=== PATIENT | male | born 1970 | race Two or more races ===

== ENCOUNTER 2016-05-23 09:57 | Emergency (ER) | payer MEDICAID ==
[~2016-05-23] VITALS: Ht 165.1 cm; Wt 65.0 kg
[2016-05-23 10:00] VITALS: Ht 165.1 cm; Wt 65.0 kg
[2016-05-23] MEDS ORDERED: OFLO5DRO46 BOTH EYES (10:27)
--- NOTE | 2016-05-23 10:43 | ERD ---
DATE OF SERVICE: 05/23/2016 HISTORY OF PRESENT ILLNESS: The patient is a 45-year-old male complaining of discharge from his eye s for 3 days. The patient states he has used Clear Eyes and allergic medications, but has not been helping his symptoms. He does not wear glasses or contacts. He does not feel that his vision is af fected. Does not have pain with eye movement. No headaches. No fevers. PAST MEDICAL HISTORY: Denies medical problems. ALLERGIES TO MEDICATIONS: DENIES. PAST SURGICAL HISTORY: Denies. SOCIAL HISTORY: Denies. REVIEW OF SYSTEMS: A 12-point review of systems was done. Refer to HPI for positives, all other sy stems negative. PHYSICAL EXAMINATION VITAL SIGNS: Temperature is 98.2, pulse 107, blood pressure is 148/90, respiratory rate 18, O2 satu ration 99% on room air. Pain intensity of 4/10. GENERAL: The patient is well-appearing, well-nourished, no acute distress. HEENT: The patient has copious amounts of discharge from the eyes with mild injection of the eyes. There is no surrounding erythema to the soft tissue. Pupils equal, round and reactive to light. E xtraocular movements intact. No pain with eye movements. NECK: C-spine is soft and supple. There is no meningismus. There is no cervical lymphadenopathy. No JVD. No bruits. No goiter. CHEST: Clear to auscultation bilaterally. There are no rales, wheezes or rhonchi. HEART: Regular rate and rhythm. No murmurs, clicks, rubs or gallops. No S3 or S4. SKIN: There is no apparent rash or petechia. The skin is warm and dry. DIAGNOSIS: Bacterial conjunctivitis. MEDICAL DECISION MAKING: I have low suspicion for intracranial hemorrhage or mass effect. Low susp icion for orbital or periorbital cellulitis. Low suspicion for meningitis or sepsis. DISCHARGE: The patient is discharged stable. The patient is given a prescription for Ocuflox and t old to follow up with primary care within 1 to 2 days for reevaluation. The patient was told if sym ptoms progress or worsen, to return to the ER. All other questions answered at time of discharge. Discharge summary given at the time of departure. The patient understood and complied with plan. Dictated By: JADA HUFF for NEO PILLAI/NTS Conf#: [id number] DID#: [id number]
== END 2016-05-23 10:50 | disposition home or self-care (01) ==
LOC: FTE 09:57
DX: H10.9 Unspecified conjunctivitis (principal)
CPT/HCPCS: 99283

== ENCOUNTER 2016-05-25 09:51 | Inpatient (IN) | payer MEDICAID ==
[~2016-05-25] VITALS: Ht 165.1 cm; Wt 70.0 kg
[~2016-05-25 09:51] MED LIST: OFLO5DRO46 BOTH EYES
[2016-05-25] MEDS ORDERED: SODIUM CHLORIDE 0.9% 1L BAG IV* STA (10:13)
[2016-05-25] MEDS ORDERED: IBUPROFEN 600 MG TAB PO ONE (10:30)
[2016-05-25] MEDS ORDERED: CEFTRIAXONE 1 GM/50 ML (PMX) 50 ML IVPB ONE (10:30)
--- NOTE | 2016-05-25 10:32 | RADRPT ---
PROCEDURE: Chest x-ray CLINICAL INDICATION: Sepsis TECHNIQUE: Chest single view COMPARISON: None FINDINGS: Heart is mildly enlarged in size. Pulmonary vessels normal in caliber. There is questionable retro cardiac infiltrate / pneumonia. Consider lateral view for further evaluation. Lung volumes are low with mild basilar atelectasis. Costophrenic angles are sharp. IMPRESSION: 1. Mild cardiomegaly. 2. Questionable retrocardiac infiltrate / pneumonia, recommend lateral view 3. Low lung volumes with basilar atelectasis RPTAT: HH .Sanjay Esquivel MD, MD Date Time Electronically viewed and signed by .Sanjay Esquivel MD, on 05/25/2016 10:32 .W/
[2016-05-25 10:33] LABS: ADD SCAN DIFF NO
[2016-05-25 10:45] LABS: ABNORMAL IP MESSAGE 1; BASOPHIL # 0.1 10^3/ul (0.0-0.1); BASOPHILS % 0.3 % (0.0-2.0); EOSINOPHILS % 0.1 % (0.0-7.0); HEMATOCRIT 46.9 % (42.0-52.0); LYMPHOCYTES # 1.7 10^3/ul (0.8-2.9); LYMPHOCYTES % 9.4 % (15.0-51.0); MEAN CORPUSCULAR HEMOGLOBIN 30.1 pg (29.0-33.0); MEAN CORPUSCULAR HGB CONC 34.1 g/dl (32.0-37.0); MEAN CORPUSCULAR VOLUME 88.2 fl (82.0-101.0); MEAN PLATELET VOLUME 9.1 fl (7.4-10.4); MONOCYTE # 2.4 10^3/ul (0.3-0.9); MONOCYTES % 12.9 % (0.0-11.0); NEUTROPHIL # 14.1 10^3/ul (1.6-7.5); NEUTROPHILS % 76.3 % (39.0-77.0); PLATELET COUNT 364 10^3/UL (140-415); RED BLOOD COUNT 5.32 10^6/ul (4.70-6.10); RED CELL DISTRIBUTION WIDTH 12.4 % (11.5-14.5); WHITE BLOOD COUNT 18.4 10^3/ul (4.8-10.8)
[2016-05-25 10:47] LABS: CHLORIDE 93 mmol/L (97-110)
[2016-05-25 10:48] LABS: ALBUMIN 3.9 g/dl (3.3-4.9); POTASSIUM 4.2 mmol/L (3.5-5.1); SODIUM 134 mmol/L (135-144)
[2016-05-25 10:49] LABS: INR 1.11; PARTIAL THROMBOPLASTIN TIME 30.3 Sec (25.0-35.0); PROTIME 14.3 Sec (12.2-14.2); PT RATIO 1.1
[2016-05-25 10:50] LABS: CREATININE 0.93 mg/dl (0.61-1.24)
[2016-05-25 10:51] LABS: ALANINE AMINOTRANSFERASE 26 IU/L (13-69); ALBUMIN/GLOBULIN RATIO 0.86; ALKALINE PHOSPHATASE 111 IU/L (42-121); ANION GAP 18 (8-16); ASPARTATE AMINO TRANSFERASE 27 IU/L (15-46); BILIRUBIN,INDIRECT 1.3 mg/dl (0-1.1); BILIRUBIN,TOTAL 1.3 mg/dl (0.2-1.3); BLOOD UREA NITROGEN 12 mg/dl (7-20); CALCIUM 10.7 mg/dl (8.4-10.2); CARBON DIOXIDE 27 mmol/L (21-31); GLUCOSE 190 mg/dl (70-220); TOTAL PROTEIN 8.4 g/dl (6.1-8.1)
[2016-05-25] MEDS ORDERED: VANCOMYCIN 1 GM (PMX) 250 ML IVPB SCH (11:00)
[2016-05-25 11:09] LABS: TROPONIN-I < 0.012 ng/ml (0.00-0.12)
--- NOTE | 2016-05-25 11:42 | ERA ---
ER Documentation Chief Complaint Date/Time DATE: 05/25/16 TIME: 11:25 Chief Complaint BIB BILAT EYE REDNESS, LEFT ANKLE PAIN, FEVER HPI 45-year-old man complains of increasing left ankle pain, redness, and swelling 4-5 days, beginning about 2 days after receiving a stone massage. He states the stone was rubbed against his feet and lower extremities bilaterally and symptoms began a few days after that. Patient was also seen and evaluated a few days ago and diagnosed with bilateral conjunctivitis, he has been using antibiotic drops as prescribed without relief. Patient denies headache, no neck pain or stiffness, no cough, no sore throat, no vomiting or diarrhea, no dysuria. Patient denies abdominal pain. Patient denies recent travel or sick contacts. ROS All systems reviewed and are negative except as per history of present illness. Medications Home Meds Active Scripts Ofloxacin* (Ocuflox*) 0.3%-5 Ml Ophth Drops, 1 DROP BOTH EYES QID, #1 BOTTLE Prov:DUNCAN GOMEZ PA-C 05/23/16 Allergies Allergies: Coded Allergies: No Known Allergy (Unverified , 05/25/16) PMhx/Soc Recent bilateral conjunctivitis Hx Miscellaneous Medical Probl: Yes (EYE INFECTION) Hx Alcohol Use: No Hx Substance Use: No Hx Tobacco Use: No Smoking Status: Never smoker FmHx Family History: No diabetes Physical Exam Vitals Vital Signs Date Time Temp Pulse Resp B/P Pulse Ox O2 Delivery O2 Flow Rate FiO2 05/25/16 10:01 101.1 124 20 138/94 99 Physical Exam GENERAL: Well-developed, febrile HEENT: Bilateral conjunctival injection with mild discharge, no cervical spine tenderness or step-off deformities, no goiter, no jaundice or icterus, extraocular movements intact without pain. No submandibular induration, and no pharyngeal erythema NEURO: Alert and oriented 3, cranial nerves II through XII intact bilaterally, pupils equal round reactive to light, no focal deficits or facial asymmetry, sensation intact distally Strength 5/5 in upper and lower extremities bilaterally CARDIAC: Tachycardic and regular, no murmurs rubs or gallops LUNGS: Clear bilaterally no wheezing crackles or stridor ABDOMEN: Soft nontender, no guarding, no rigidity, no rebound, no psoas sign no obturator sign. Normoactive bowel sounds SKIN: Warm and dry to touch, positive skin induration and erythema to the medial aspect of the left ankle with superficial abrasion noted over the cellulitis, calves are bilaterally symmetrical. EXTREMITIES: No clubbing cyanosis or edema, calves are bilaterally symmetrical, no Homans sign, no popliteal cord sign. Distal pulses equal and bilateral PSYCH: Normal affect without agitation or irritability Result Diagram: 05/25/16 1025 05/25/16 1025 Results 24 hrs Laboratory Tests Test 05/25/16 10:25 Activated Partial Thromboplast Time 30.3Sec Alanine Aminotransferase (ALT/SGPT) 26IU/L Albumin 3.9g/dl Albumin/Globulin Ratio 0.86 Alkaline Phosphatase 111IU/L Anion Gap 18 Aspartate Amino Transf (AST/SGOT) 27IU/L Basophils # 0.110^3/ul Basophils % 0.3% Blood Urea Nitrogen 12mg/dl Calcium Level 10.7mg/dl Carbon Dioxide Level 27mmol/L Chloride Level 93mmol/L Creatinine 0.93mg/dl Direct Bilirubin 0.00mg/dl Eosinophils # 0.010^3/ul Eosinophils % 0.1% Globulin 4.50g/dl Glucose Level 190mg/dl Hematocrit 46.9% Hemoglobin 16.0g/dl INR International Normalized Ratio 1.11 Indirect Bilirubin 1.3mg/dl Lactic Acid Level 1.6mmol/L Lipase 47U/L Lymphocytes # 1.710^3/ul Lymphocytes % 9.4% Mean Corpuscular Hemoglobin 30.1pg Mean Corpuscular Hemoglobin Concent 34.1g/dl Mean Corpuscular Volume 88.2fl Mean Platelet Volume 9.1fl Monocytes # 2.410^3/ul Monocytes % 12.9% Neutrophils # 14.110^3/ul Neutrophils % 76.3% Nucleated Red Blood Cells # 0.010^3/ul Nucleated Red Blood Cells % 0.0/100WBC Platelet Count 92420^3/UL Potassium Level 4.2mmol/L Prothrombin Time 14.3Sec Prothrombin Time Ratio 1.1 Red Blood Count 5.3210^6/ul Red Cell Distribution Width 12.4% Sodium Level 134mmol/L Total Bilirubin 1.3mg/dl Total Protein 8.4g/dl Troponin I < 0.012ng/ml White Blood Count 18.410^3/ul Current Medications Medications (Trade) Dose Ordered Sig/Boaz Route PRN Reason Start Time Stop Time Status Last Admin Dose Admin Sodium Chloride 3000 ml 3,000 ml BOLUS OVER 2 HOURS STAT IV* 05/25/16 10:13 05/25/16 10:40 DC 05/25/16 11:06 Ceftriaxone Sodium (Rocephin) 50 ml @ 100 mls/hr ONCE ONCE IVPB 05/25/16 10:30 05/25/16 10:59 DC 05/25/16 11:06 Ibuprofen 600 mg 600 mg ONCE ONCE PO 05/25/16 10:30 05/25/16 10:40 DC 05/25/16 11:06 Vancomycin HCl (Vancocin) 250 ml @ 125 mls/hr ONCE IVPB 05/25/16 11:00 05/25/16 12:59 05/25/16 11:07 Procedures/MDM IV line was established patient was placed on monitoring specialist rhythm strip revealed a sinus tachycardia at 110 bpm with upright P and T waves. Patient was febrile. Blood and urine cultures have been ordered results are pending I will follow-up. EKG performed, read by me revealed a sinus tachycardia at 108 bpm, normal axis, narrow QRS complex, no concerning ST elevations or depressions noted. I treated the patient here with ceftriaxone 1 g IV and vancomycin 1 g IV, patient also received ibuprofen 600 mg p.o. and about 3 L normal saline intravenously. CBC and electrolytes were normal, liver function tests were normal, troponin was negative, coagulation profile was normal. Lactic acid level was low at 1.6. Urine analysis is pending I will follow-up. Chest X-ray 1V Interpreted by me: Soft Tissue: No acute abnormalities Bones: No acute abnormalities Mediastinum/Cardiac Silhouette/Lungs: No acute abnormalities Patient's infectious symptoms have not stabilized and the patient is at risk of rapid decompensation. The patient will be admitted for careful hydration, antibiotic therapy, and infectious source control. Severe Sepsis Assessment: Infectious Source: Left lower extremity cellulitis Severe Sepsis Managment: Blood Cultures X 2 before broad spectrum antibiotics initiated within 3 hours of recognition. 30 ml/kg NS bolus Completed Initial Lactate: 1.6 Repeat Lactate not indicated as initial < 2.0 Critical Care: Time: 37 minutes Treatments/Evaluations: Emergent fluid management, while maintaining close respiratory support. Immediate broad spectrum antibiotic therapy. Simultaneous assessment for possible sources in order to direct therapy. Consideration for invasive and chemical support to prevent respiratory or cardiac collapse. Septic Shock Assessment (1 hour post 30 ml/kg fluid bolus): Hypotension (SBP < 90 or 40 mmHg drop, MAP < 65): No Lactic acid > 4.0 No Perfusion Reassessment for Septic Shock: Temp afebrile, Pulse 90, RR 16, BP 120/80 Heart Exam: Regular rate and rhythm Lung Exam: No Crackles Capillary Refill: Less than 2 seconds Peripheral Pulses: Radially present Skin: [place], warm, and dry I considered further perfusion assessment with CVP measurement, SCVO2, bedside ultrasound volume assessment, passive leg raise, trial of further fluid bolus. And preceded with hydration and IV antibiotics Accepting Care Team: Current data and ongoing care discussed. Time: Time of admission Primary Provider: Hospital Consulting: Infectious disease Outstanding Data: none Departure Diagnosis: Primary Impression: Sepsis Qualified Code: A41.9 - Sepsis, due to unspecified organism Additional Impressions: Cellulitis Qualified Code: L03.116 - Cellulitis of left lower extremity Conjunctivitis Qualified Code: H10.33 - Acute bacterial conjunctivitis of both eyes Condition: MAURY Welch MD May 25, 2016 11:36
[2016-05-25 12:17] LABS: ADD UMIC YES; URINE BILIRUBIN (Dip) NEGATIVE (NEGATIVE); URINE BLOOD (Dip) 3+ (NEGATIVE); URINE COLOR LT. YELLOW (YELLOW); URINE KETONES (Dip) 15 (NEGATIVE); URINE LEUKOCYTE ESTERASE (Dip) NEGATIVE (NEGATIVE); URINE NITRITE (Dip) NEGATIVE (NEGATIVE); URINE TOTAL PROTEIN (Dip) 1+ (NEGATIVE); URINE UROBILINOGEN (Dip) 2.0 E.U./dL (0.1-1.0)
[2016-05-25 12:40] LABS: URINE RBCS 0-2 /HPF (0)
[2016-05-25 16:05] VITALS: TEMP 101.1
[2016-05-25 16:15] VITALS: BP 130/70; PULSE 85; RESP 18
[2016-05-25 16:45] VITALS: Ht 165.1 cm; Wt 70.0 kg
[2016-05-25] MEDS ORDERED: CEFTRIAXONE 2 GM/50 ML (PMX) 50 ML IVPB ONE (17:30)
[2016-05-25] MEDS ORDERED: ACETAMINOPHEN 325 MG TAB PO PRN (17:30)
[2016-05-25] MEDS ORDERED: NACL 0.9% 3 ML SYG IV SCH (17:30)
[2016-05-25] MEDS ORDERED: ONDANSETRON 4 MG TAB PO PRN (17:30)
[2016-05-25] MEDS ORDERED: ACETAMINOPHEN 650 MG SUPP PR PRN (17:30)
[2016-05-25 18:44] LABS: CREATINE KINASE 54 IU/L (23-200)
[2016-05-25 18:54] LABS: CK-MB 0.25 ng/ml (0.0-2.4)
[2016-05-25 18:58] LABS: TROPONIN-I < 0.012 ng/ml (0.00-0.12)
[2016-05-25 20:01] VITALS: BP 139/86; RESP 18
[2016-05-25] MEDS: CLINDAMYCIN 600 MG/D5W (PMX) 50 ML IVPB SCH (21:18)
[2016-05-25] MEDS: GENTAMICIN 0.3% 5 ML OPH BOTH EYES SCH (21:18)
[2016-05-25] MEDS: FAMOTIDINE 20 MG INJ IV SCH (21:18)
[2016-05-25 23:18] LABS: CREATINE KINASE 41 IU/L (23-200)
--- NOTE | 2016-05-25 23:22 | CONS ---
Date/Time of Note Date/Time of Note DATE: 05/25/16 TIME: 23:19 Assessment/Plan Assessment/Plan Problems: (1) Left ankle pain Status: Acute Comment: r/o seronegative arthritis vs. lupus vs. RA vs. Justen's disease --> discussed case with Dr. ANGELES. 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 My recommendation is full blood work for rheumatoid arthritis, seronegative arthritis, lupus etc. I discussed my findings and my recommendations with the admitting physician. Thank you again for involving me in the care of this patient. If you have any questions regarding this case, please feel free to contact me at pager: or reach me at mobile: [phone]. Consultation Date/Type/Reason Admit Date/Time May 25, 2016 at 11:13 Date of Consultation: May 25, 2016 Type of Consultation: Foot and ankle surgery Reason for Consultation left ankle pain and swelling Hx of Present Illness Thank you very much for involving me in the care of this patient. As you very well know this is a 45-year-old with no significant past medical history who presents to [facility] emergency department with a chief complaint of 1 week of pain in the left ankle with swelling and bruising. He says that he was receiving a massage after which he started to feel pain in his ankle as the masseuse was using warm rock with some oil. Patient reports that he started having pain in other joints including his knees a few days later and started to have difficulty with walking and standing. Patient also has been having bilateral conjunctivitis which has been going on for about 4 days. Patient denies fever, chills, nausea or vomiting. Denies travel to other countries recently. I was consulted for evaluation and treatment. As per history of present illness. Past Medical History As per history of present illness. Past Surgical History As per history of present illness. Social History Smoking Status: Never smoker Exam/Review of Systems Vital Signs Vitals Vital Signs Date Time Temp Pulse Resp B/P Pulse Ox O2 Delivery O2 Flow Rate FiO2 05/25/16 20:01 99.4 98 18 139/86 98 05/25/16 16:15 Room Air Exam Patient is laying supine in bed. Patient has conjunctivitis on both eyes. Patient has edema of right ankle with tenderness to palpation of both ankles and heels. Patient has tenderness on range of motion of both ankle joints. There is mild erythema noted. There is no active open wound. Dorsalis pedis and posterior tibial pulses are palpable. Labs and imaging reviewed. Results Result Diagram: 05/25/16 1025 05/25/16 1025 Results 24 hrs Laboratory Tests Test 05/25/16 10:25 05/25/16 11:10 05/25/16 14:35 05/25/16 18:09 Activated Partial Thromboplast Time 30.3 Alanine Aminotransferase (ALT/SGPT) 26 Albumin 3.9 Albumin/Globulin Ratio 0.86 Alkaline Phosphatase 111 Anion Gap 18 H Aspartate Amino Transf (AST/SGOT) 27 Basophils # 0.1 Basophils % 0.3 Blood Urea Nitrogen 12 Calcium Level 10.7 H Carbon Dioxide Level 27 Chloride Level 93 L Creatinine 0.93 Direct Bilirubin 0.00 Eosinophils # 0.0 Eosinophils % 0.1 Globulin 4.50 H Glucose Level 190 Hematocrit 46.9 Hemoglobin 16.0 INR International Normalized Ratio 1.11 Indirect Bilirubin 1.3 H Lactic Acid Level 1.6 1.7 1.0 Lipase 47 Lymphocytes # 1.7 Lymphocytes % 9.4 L Mean Corpuscular Hemoglobin 30.1 Mean Corpuscular Hemoglobin Concent 34.1 Mean Corpuscular Volume 88.2 Mean Platelet Volume 9.1 Monocytes # 2.4 H Monocytes % 12.9 H Neutrophils # 14.1 H Neutrophils % 76.3 Nucleated Red Blood Cells # 0.0 Nucleated Red Blood Cells % 0.0 Platelet Count 364 Potassium Level 4.2 Prothrombin Time 14.3 H Prothrombin Time Ratio 1.1 Red Blood Count 5.32 Red Cell Distribution Width 12.4 Sodium Level 134 L Total Bilirubin 1.3 Total Protein 8.4 H Troponin I < 0.012 < 0.012 White Blood Count 18.4 H Urine Bilirubin NEGATIVE Urine Clarity CLEAR Urine Color LT. YELLOW Urine Glucose 0.1% H Urine Hemoglobin 3+ H Urine Ketones 15 Urine Leukocyte Esterase NEGATIVE Urine Microscopic RBC 0-2 Urine Microscopic WBC 2-5 Urine Nitrite NEGATIVE Urine Specific [place] 1.015 Urine Total Protein 1+ H Urine Urobilinogen 2.0 E.U./dL H Urine pH 5.5 Creatine Kinase 54 Creatine Kinase Index 0.5 Creatinine Kinase MB (Mass) 0.25 Erythrocyte Sedimentation Rate 95 H Medications Medications Current Medications Ceftriaxone Sodium 50 ml @ 100 mls/hr Q24H IVPB ; Start 05/26/16 at 18:00 Clindamycin HCl/ Dextrose (Cleocin 600 Mg/ D5W (Pmx)) 50 ml @ 50 mls/hr Q8 IVPB Last administered on 05/25/16 21:18; Admin Dose 50 MLS/HR; Start 05/25/16 at 22:00 Ondansetron HCl (Zofran Tab) 4 mg Q6H PRN PO NAUSEA AND/OR VOMITING; Start at 17:30 Acetaminophen (Tylenol Tab) 650 mg Q6H PRN PO PAIN LEVEL 1-3 OR FEVER; Start at 17:30 Acetaminophen (Tylenol Supp) 650 mg Q6H PRN ID PAIN LEVEL 1-3 OR FEVER; Start 05/25/16 at 17:30 Acetaminophen/ Hydrocodone Bitart ([place] (5/325)) 1 tab Q6H PRN PO MODERATE PAIN LEVEL 4-6; Start 05/25/16 at 17:30 Morphine Sulfate (morphine) 1 mg Q4H PRN IV SEVERE PAIN LEVEL 7-10; Start 05/25 at 17:30 Docusate Sodium (Colace) 100 mg Q12H PRN PO CONSTIPATION; Start 05/25/16 at 17: 30 Famotidine (Pepcid Iv) 20 mg Q12 IV Last administered on 05/25/16 21:18; Admin Dose 20 MG; Start 05/25/16 at 21:00 Gentamicin Sulfate (Gentamicin 0.3% Oph Drop) 1 drop Q12 BOTH EYES Last administered on 05/25/16 21:18; Admin Dose 1 DROP; Start 05/25/16 at 21:00; Stop 05/28/16 at 12:00 MARYSE SHIRLEY DPM May 25, 2016 23:21
[2016-05-25 23:29] LABS: CK-MB < 0.22 ng/ml (0.0-2.4)
[2016-05-25 23:54] LABS: TROPONIN-I < 0.012 ng/ml (0.00-0.12)
--- NOTE | 2016-05-26 02:54 | HP ---
DATE OF ADMISSION: 05/25/2016 CONSULTANTS: 1. Infectious disease. 2. Podiatry. CHIEF COMPLAINT: Left ankle pain and cellulitis with bilateral knee pain. HISTORY OF PRESENT ILLNESS: This is a 45-year-old gentleman with no significant past medical histor y who presents to [facility] Emergency Room secondary to having 1 week of left ank le pain and bruising, which he states happened after he obtained a massage which the masseuse used w arm rock which was accompanied with some oil. Several days later, the patient started having bilate ral knee pain and difficulty with ambulation secondary to the left lower extremity pain. The patien t also has been having bilateral conjunctivitis which started 3 to 4 days ago. He denies any recent travel history. No sick contact and no other family member has been having these signs and symptom s. He has not sought any medical attention until today when he presented to [facility], which his sodium was 134, calcium 10.7, total bilirubin 1.3, total protein 8.4. WBC 18.4. U rinalysis positive 3 hemoglobin; urobilinogen 2.0, leukocyte esterase negative. INR 1.01. The michelle ent denies any fever, chills, weight gain, weight loss, anorexia. No chest pain, no change in visua l acuity, diplopia, photophobia. No abdominal pain, no recent travel history. No sick contact or a ny other discomfort except what was stated above. PAST MEDICAL AND SURGICAL HISTORY: None. MEDICATIONS: None. SOCIAL HISTORY: Positive for drinking alcohol once or twice a week. No smoking, no illicit drugs. FAMILY HISTORY: No family history of rheumatoid arthritis, lupus or any immunocompromise disease. REVIEW OF SYSTEMS: As above per HPI, otherwise 12-point review of systems found to be negative. PHYSICAL EXAMINATION: VITAL SIGNS: Temperature 101.1, pulse 98, respiration 20, blood pressure 134/90, oxygen 99% in room air. GENERAL APPEARANCE: The patient is lying in bed comfortably without any distress. He is awake, jacey rt, oriented, is able to answer my questions properly. EYES AND ENT: Conjunctivae and is erythematous and red. Pupils are normal. Extraocular normal. H earing grossly normal. Lips, teeth and gums are normal. Oral mucosa mildly dry. NECK: Supple. Trachea is midline. No lymphadenopathy. RESPIRATORY: Effort is normal. Clear to auscultation bilaterally. CARDIOVASCULAR: Normal S1, S2. Regular rhythm and rate. No murmur, no bruits, no edema. Peripher al pulses, radial pulses palpable. Cap refill is normal. CHEST: Normal expansion of thorax during inspiration. GASTROINTESTINAL: Abdomen is soft, nontender, not distended. Bowel sounds present. No guarding, n o rebound. GENITOURINARY: Deferred. MUSCULOSKELETAL: Upper and lower extremities within normal limits. Full range of motion. There is tenderness in bilateral knee and left ankle. There is some bruising in the medial aspect of the le ft ankle. NEUROLOGIC: Cranial nerves II through XII grossly intact. PSYCHIATRIC: Normal judgment and insight. Alert and oriented x3. Mood and affect is normal. LABORATORY WORK AND IMAGING: PT 14.3, INR 1.1. Sodium 134, potassium 4.2, chloride 93, bicarbonate 27, BUN 18, creatinine 0.93, glucose 190, lactic acid 1.6, calcium 10.7, total bilirubin 1.3, direc t bilirubin 0, indirect bilirubin 1.3, AST 27, ALT 26, alkaline phosphatase 111. Troponin negative. Total protein 8.4. Lipase 47. WBC 18.4, hemoglobin 16, hematocrit 46.9, platelets 364. ASSESSMENT AND PLAN: Left lower extremity/ankle cellulitis with elevated white count and fever. Po diatry has been consulted. Infectious disease doctor has been consulted. At this time, patient has been placed on Rocephin and clindamycin, although the patient states that he has had this in the [facility] about 20 years ago. This also may be some inflammatory disease which is secondary to patient's b ilateral conjunctivitis. We will follow up rheumatology factors such as rheumatoid factor, uric aci d, ESR, JOSEFINA, anti-SSA and SSB and CRP. At this time will continue antibiotics. We will continue to monitor patient closely. Further recommendations, management and treatment as per clinical course. Dictated By: JONI DE ANDA/RUY Conf#: [id number] DID#: [id number]
--- NOTE | 2016-05-26 03:04 | RADRPT ---
PROCEDURE: MR Ankle. CLINICAL INDICATION: Pain in the left ankle. TECHNIQUE: Noncontrast MRI of the left ankle, with axial, sagittal and coronal images. T1-weighte d, T2-weighted, proton density and fat saturation techniques employed. COMPARISON: No prior studies are available for comparison. FINDINGS: No acute fracture or dislocation. No evident marrow replacement process. The talar dome is intact. Likely partial tear of the inferior margin of the anterior tibiofibular ligament or superior margin of the anterior talofibular ligament. There is a large tibiotalar joint effusion, and fluid migrate s anterior to the talus, compatible with ligamentous disruption at the anterior lateral ankle. There is no evident retraction to suggest full-thickness tear of either the tibiofibular or tibiotal ar ligaments. Joint fluid decompresses over of the posterior tibialis, flexor hallucis longus and flexor digitorum longus and flexor pollicis longus tendons at the posterior and medial aspects of the ankle and hind foot, with fluid extending over the tendons into the region of the plantar aspect of the midfoot. Mild tenosynovitis is seen associated the peroneus longus and brevis distal to the tip of the fibula . There may be a very small longitudinal tear involving the peroneus longus. Otherwise, there is n o evident retraction to suggest a full-thickness tear of the peroneus longus or peroneus brevis. A reference marker is seen over the medial aspect of the ankle, just posterior to the medial malleol us. Deep to the reference marker and there is extensive subcutaneous edema, otherwise nonspecific. Deep to the region of the extensive subcutaneous edema is the fluid surrounding the 3 principal ten dons of the medial ankle, described above. Mild subcutaneous edema is seen over the and for all lateral aspect of the ankle and proximal foot. Remaining soft tissues are substantially unremarkable. IMPRESSION: 1. There is a large tibiotalar joint effusion, with migration of fluid anterior to the talus. 2. This indicates at least a partial disruption of the anterior tibiofibular and/or anterior tibiot alar ligaments. 3. Otherwise, these ligaments appear intact without evident full-thickness tear or retraction. 4. Tibiotalar joint fluid decompresses around the posterior tibialis, flexor digitorum longus and f lexor hallucis longus tendons, and the fluid surrounding the tendons extends from the hind foot to t he plantar aspect of the midfoot. 5. Deep to reference marker there is subcutaneous edema at the ankle just posterior to the medial m alleolus, and deep to the subcutaneous edema the fluid surrounding the 3 principal tendons is identi fied. 6. Mild tenosynovitis involve the peroneus longus and brevis. 7. No acute fracture, dislocation, marrow replacement process or evident injury to the talar dome. RPTAT: [facility] Physician Nelly Date Time Electronically viewed and signed by Physician Nelly on 05/26/2016 03:04 RS/
[2016-05-26] MEDS: CLINDAMYCIN 600 MG/D5W (PMX) 50 ML IVPB SCH (05:33)
[2016-05-26 05:39] LABS: ADD SCAN DIFF NO; HAAIG REFLEX REFLEX FILED
[2016-05-26 06:08] LABS: ABNORMAL IP MESSAGE 1; BASOPHIL # 0.1 10^3/ul (0.0-0.1); BASOPHILS % 0.3 % (0.0-2.0); EOSINOPHILS % 0.2 % (0.0-7.0); HEMOGLOBIN 12.4 g/dl (14.0-18.0); LYMPHOCYTES # 2.1 10^3/ul (0.8-2.9); LYMPHOCYTES % 14.5 % (15.0-51.0); MEAN CORPUSCULAR HEMOGLOBIN 29.6 pg (29.0-33.0); MEAN CORPUSCULAR HGB CONC 33.5 g/dl (32.0-37.0); MEAN CORPUSCULAR VOLUME 88.3 fl (82.0-101.0); MEAN PLATELET VOLUME 9.5 fl (7.4-10.4); MONOCYTE # 1.9 10^3/ul (0.3-0.9); MONOCYTES % 13.4 % (0.0-11.0); NEUTROPHIL # 10.2 10^3/ul (1.6-7.5); NEUTROPHILS % 70.9 % (39.0-77.0); PLATELET COUNT 319 10^3/UL (140-415); RED BLOOD COUNT 4.19 10^6/ul (4.70-6.10); RED CELL DISTRIBUTION WIDTH 12.7 % (11.5-14.5); WHITE BLOOD COUNT 14.4 10^3/ul (4.8-10.8)
[2016-05-26 06:09] LABS: CHLORIDE 99 mmol/L (97-110); POTASSIUM 3.1 mmol/L (3.5-5.1); SODIUM 136 mmol/L (135-144)
[2016-05-26 06:12] LABS: ANION GAP 16 (8-16); BLOOD UREA NITROGEN 9 mg/dl (7-20); CARBON DIOXIDE 24 mmol/L (21-31); CREATININE 0.74 mg/dl (0.61-1.24)
[2016-05-26 06:13] LABS: GLUCOSE 110 mg/dl (70-220)
[2016-05-26 07:00] LABS: HEPATITIS B CORE ANTIBODY NEGATIVE (NEGATIVE)
[2016-05-26 07:36] LABS: ALBUMIN 3.1 g/dl (3.3-4.9)
[2016-05-26 07:39] LABS: BILIRUBIN,INDIRECT 0.6 mg/dl (0-1.1); BILIRUBIN,TOTAL 0.6 mg/dl (0.2-1.3)
--- NOTE | 2016-05-26 07:57 | CONS ---
DATE OF ADMISSION: 05/25/2016 DATE OF CONSULTATION: 05/25/2016 TYPE OF CONSULTATION: Infectious Disease. REASON FOR CONSULTATION: Antibiotic management. HISTORY OF PRESENT ILLNESS: Dean Yancey is a 45-year-old male who comes in with bilateral eye r edness and left ankle pain as well as fever. He notes that he has had left ankle pain, redness and swelling for 4 or 5 days, beginning about 2 days after receiving a stone massage. The stones were r ubbed against his feet and his lower extremities bilaterally and symptoms began a few days after chang t. He was seen and evaluated and diagnosed with bilateral conjunctivitis. He has been using antibio tic drops as prescribed without relief. He has no dysuria. He has no recent travel. He was starte d on ofloxacin eyedrops. PAST MEDICAL HISTORY: Unremarkable. FAMILY HISTORY: Noncontributory. SOCIAL HISTORY: He does not smoke, drink or abuse drugs. ALLERGIES: NONE TO PENICILLIN, SULFA OR FOODS. MEDICATIONS: Per chart. REVIEW OF SYSTEMS: As per HPI. PHYSICAL EXAMINATION: GENERAL: The patient is a well-developed, well-nourished male who is alert and responsive, in no ac [place] distress. VITAL SIGNS: He has a temperature of 101.1. Vital signs otherwise are normal. SKIN: Without generalized rash. Skin is warm and dry to touch. He has some induration and erythem a of medial aspect of the left ankle with superficial abrasion noted there. HEENT: Bilateral conjunctival injection with mild discharge. NECK: Supple. LYMPH NODES: None palpable. LUNGS: Clear to P and A. HEART: He is tachycardic. ABDOMEN: Soft, nontender, without organosplenomegaly or masses. EXTREMITIES: Without cyanosis, clubbing, or edema. As noted his left ankle has a superficial abras ion and probable cellulitis. Calves are symmetrical. RECTAL AND GENITAL: Deferred. NEUROLOGIC: Without any focal neurological abnormalities. ANCILLARY LABORATORY DATA: White count is 18.4, H and H of 16 and 46.9, platelet count 364,000. BU N and creatinine 12/0.93 and glucose of 190. PLAN: The patient was started on vancomycin and ceftriaxone for cellulitis. I think that possibilit y of Justen's syndrome has to be considered as well. He also was started on clindamycin, I guess fo r the possibility of group A strep. His chest x-ray shows questionable retrocardiac infiltrate or pn eumonia. Recommend lateral view. He had an ultrasound of the abdomen which is pending. He also patel d a sedimentation rate, rheumatoid factor, JOSEFINA, blood cultures, although I do not see an HLA-B27. I will dictate my findings to the hospitalist. A crown attacher should see the patient. Dictated By: TA MITCHELL MD, JD/RUY Conf#: [id number] DID#: [id number]
[2016-05-26] MEDS: FAMOTIDINE 20 MG INJ IV SCH ×2 (08:21→20:21)
[2016-05-26 08:24] VITALS: BP 130/68; RESP 18
[2016-05-26] MEDS: GENTAMICIN 0.3% 5 ML OPH BOTH EYES SCH ×2 (08:25→20:20)
[2016-05-26] MEDS ORDERED: POTASSIUM CHLORIDE (SR) 20 MEQ TAB PO STA (09:32)
--- NOTE | 2016-05-26 09:32 | PN ---
Date/Time of Note Date/Time of Note DATE: 05/26/16 TIME: 09:30 Assessment/Plan VTE Prophylaxis VTE Prophylaxis Intervention: SCD's Assessment/Plan Assessment/Plan Left lower extremity/ankle cellulitis with elevated white count and fever. acute transaminitis with elevated total bilirubin Blood culture positive with Gram positive cocci in clusters Conjunctivitis plan: continue current care Bp stable US abdomen IV abx as per ID, Blood cx grew Gram positive cocci in clusters resume diet after US abdomen will follow up Subjective 24 Hr Interval Summary Free Text/Dictation c/o abdominal pain , US abdomen ordered for today, ID following Exam/Review of Systems Vital Signs Vitals Vital Signs Date Time Temp Pulse Resp B/P Pulse Ox O2 Delivery O2 Flow Rate FiO2 05/26/16 08:24 99.5 101 18 130/68 97 05/25/16 16:15 Room Air Intake and Output 05/25/16 05/25/16 05/26/16 15:00 23:00 07:00 Intake Total 290 ml 1550 ml Output Total 1600 ml Balance 290 ml -50 ml Exam GENERAL APPEARANCE: The patient is lying in bed comfortably without any distress. He is awake, alert, oriented, is able to answer my questions properly. RESPIRATORY: Effort is normal. Clear to auscultation bilaterally. CARDIOVASCULAR: Normal S1, S2. Regular rhythm and rate. No murmur, no bruits , no edema. Peripheral pulses, radial pulses palpable. Cap refill is normal. CHEST: Normal expansion of thorax during inspiration. GASTROINTESTINAL: Abdomen is soft, nontender, not distended. Bowel sounds present. No guarding, no rebound. GENITOURINARY: Deferred. MUSCULOSKELETAL: Upper and lower extremities within normal limits. Full range of motion. There is tenderness in bilateral knee and left ankle. There is some bruising in the medial aspect of the left ankle. NEUROLOGIC: Cranial nerves II through XII grossly intact. PSYCHIATRIC: Normal judgment and insight. Alert and oriented x3. Mood and affect is normal. Results Result Diagram: 05/26/16 0508 05/26/16 0508 Results 24 hrs Laboratory Tests Test 05/25/16 10:25 05/25/16 11:10 05/25/16 14:35 05/25/16 18:09 Activated Partial Thromboplast Time 30.3 Alanine Aminotransferase (ALT/SGPT) 26 Albumin 3.9 Albumin/Globulin Ratio 0.86 Alkaline Phosphatase 111 Anion Gap 18 H Aspartate Amino Transf (AST/SGOT) 27 Basophils # 0.1 Basophils % 0.3 Blood Urea Nitrogen 12 Calcium Level 10.7 H Carbon Dioxide Level 27 Chloride Level 93 L Creatinine 0.93 Direct Bilirubin 0.00 Eosinophils # 0.0 Eosinophils % 0.1 Globulin 4.50 H Glucose Level 190 Hematocrit 46.9 Hemoglobin 16.0 INR International Normalized Ratio 1.11 Indirect Bilirubin 1.3 H Lactic Acid Level 1.6 1.7 1.0 Lipase 47 Lymphocytes # 1.7 Lymphocytes % 9.4 L Mean Corpuscular Hemoglobin 30.1 Mean Corpuscular Hemoglobin Concent 34.1 Mean Corpuscular Volume 88.2 Mean Platelet Volume 9.1 Monocytes # 2.4 H Monocytes % 12.9 H Neutrophils # 14.1 H Neutrophils % 76.3 Nucleated Red Blood Cells # 0.0 Nucleated Red Blood Cells % 0.0 Platelet Count 364 Potassium Level 4.2 Prothrombin Time 14.3 H Prothrombin Time Ratio 1.1 Red Blood Count 5.32 Red Cell Distribution Width 12.4 Sodium Level 134 L Total Bilirubin 1.3 Total Protein 8.4 H Troponin I < 0.012 < 0.012 White Blood Count 18.4 H Urine Bilirubin NEGATIVE Urine Clarity CLEAR Urine Color LT. YELLOW Urine Glucose 0.1% H Urine Hemoglobin 3+ H Urine Ketones 15 Urine Leukocyte Esterase NEGATIVE Urine Microscopic RBC 0-2 Urine Microscopic WBC 2-5 Urine Nitrite NEGATIVE Urine Specific [place] 1.015 Urine Total Protein 1+ H Urine Urobilinogen 2.0 E.U./dL H Urine pH 5.5 Creatine Kinase 54 Creatine Kinase Index 0.5 Creatinine Kinase MB (Mass) 0.25 Erythrocyte Sedimentation Rate 95 H Test 05/25/16 22:57 05/26/16 05:08 05/26/16 05:18 Creatine Kinase 41 Creatine Kinase Index 0.5 Creatinine Kinase MB (Mass) < 0.22 Troponin I < 0.012 Anion Gap 16 Basophils # 0.1 Basophils % 0.3 Blood Urea Nitrogen 9 C-Reactive Protein Pending Calcium Level 9.0 Carbon Dioxide Level 24 Chloride Level 99 Creatinine 0.74 Eosinophils # 0.0 Eosinophils % 0.2 Glucose Level 110 # HIV (1&2) Antibody NEGATIVE Hematocrit 37.0 #L Hemoglobin 12.4 #L Hepatitis B Core Total Antibody NEGATIVE Hepatitis B Surface Antigen NEGATIVE Hepatitis C Antibody NEGATIVE Lymphocytes # 2.1 Lymphocytes % 14.5 L Magnesium Level 2.0 Mean Corpuscular Hemoglobin 29.6 Mean Corpuscular Hemoglobin Concent 33.5 Mean Corpuscular Volume 88.3 Mean Platelet Volume 9.5 Monocytes # 1.9 H Monocytes % 13.4 H Neutrophils # 10.2 H Neutrophils % 70.9 Nucleated Red Blood Cells # 0.0 Nucleated Red Blood Cells % 0.0 Platelet Count 319 Potassium Level 3.1 L Red Blood Count 4.19 #L Red Cell Distribution Width 12.7 Sodium Level 136 Uric Acid 3.0 L White Blood Count 14.4 #H Alanine Aminotransferase (ALT/SGPT) 41 Albumin 3.1 L Alkaline Phosphatase 138 H Aspartate Amino Transf (AST/SGOT) 47 #H Direct Bilirubin 0.00 Indirect Bilirubin 0.6 Total Bilirubin 0.6 Total Protein 7.0 # Medications Medications Current Medications Ceftriaxone Sodium 50 ml @ 100 mls/hr Q24H IVPB ; Start 05/26/16 at 18:00 Clindamycin HCl/ Dextrose (Cleocin 600 Mg/ D5W (Pmx)) 50 ml @ 50 mls/hr Q8 IVPB Last administered on 05/26/16 05:33; Admin Dose 50 MLS/HR; Start 05/25/16 at 22:00 Ondansetron HCl (Zofran Tab) 4 mg Q6H PRN PO NAUSEA AND/OR VOMITING; Start at 17:30 Acetaminophen (Tylenol Tab) 650 mg Q6H PRN PO PAIN LEVEL 1-3 OR FEVER; Start at 17:30 Acetaminophen (Tylenol Supp) 650 mg Q6H PRN [place] PAIN LEVEL 1-3 OR FEVER; Start 05/25/16 at 17:30 Acetaminophen/ Hydrocodone Bitart (Sarah Ann (5/325)) 1 tab Q6H PRN PO MODERATE PAIN LEVEL 4-6; Start 05/25/16 at 17:30 Morphine Sulfate (morphine) 1 mg Q4H PRN IV SEVERE PAIN LEVEL 7-10; Start 05/25 at 17:30 Docusate Sodium (Colace) 100 mg Q12H PRN PO CONSTIPATION; Start 05/25/16 at 17: 30 Famotidine (Pepcid Iv) 20 mg Q12 IV Last administered on 05/26/16 08:21; Admin Dose 20 MG; Start 05/25/16 at 21:00 Gentamicin Sulfate 1 drop 1 drop Q12 BOTH EYES Last administered on 05/26/16t 08:25; Admin Dose 1 DROP; Start 05/25/16 at 21:00; Stop 05/28/16 at 12:00 Sodium Chloride (NS) 1,000 ml @ 100 mls/hr Q10H IV ; Start 05/26/16 at 09:30; Status UNRADHAMES MCCLOUD MD May 26, 2016 09:32
--- NOTE | 2016-05-26 10:07 | RADRPT ---
PROCEDURE: US Abdomen. CLINICAL INDICATION: Hyperbilirubinemia TECHNIQUE: Multiple real-time images were acquired of the patient's abdomen and retroperitoneum ut ilizing a high resolution transducer. COMPARISON: None FINDINGS: The liver demonstrates normal echogenicity and size and no focal lesions are seen. No gallstones ar e identified within the gallbladder. There is no pericholecystic fluid or gallbladder wall thickeni ng. No intra or extrahepatic biliary dilatation is seen. The common bile duct measures 6 mm in maxi mal dimension. The pancreas is not well seen due to overlying bowel gas. There is no splenomegaly. No free fluid is identified. A simple cyst measuring approximately 1.2 cm is present at the upper pole of the right kidney. Othe rwise, the kidneys are normal size, and demonstrate normal echogenicity and morphology. The right k idney measures 11.6 cm in long dimension. The left kidney measures 11.2 cm. There is no dilatation of the pelvicaliceal systems bilaterally. There are no perinephric fluid collections. There are n o areas of increased echogenicity to suggest nephrolithiasis. The aorta is not well seen due to over lying bowel gas. IMPRESSION: Unremarkable abdominal ultrasound. No biliary dilatation. The abdominal aorta and pancreas were not well seen due to overlying bowel gas. Physician Radha Date Time Electronically viewed and signed by Physician Radha on 05/26/2016 10:07 ML/
[2016-05-26] MEDS: SOD CHLORIDE 0.9% 1,000 ML IV SCH ×3 (10:12→22:11)
[2016-05-26 11:37] LABS: C-REACTIVE PROTEIN 24.2 mg/dl (0.0-0.9)
[2016-05-26] MEDS ORDERED: VANCOMYCIN IV PER PHARMACY XX SCH (14:30)
[2016-05-26] MEDS ORDERED: CEFTRIAXONE 1 GM/50 ML (PMX) 50 ML IVPB SCH (14:30)
--- NOTE | 2016-05-26 14:33 | PN ---
DATE: 05/26/2016 SUBJECTIVE: The patient is alert, lying comfortably in bed. No fevers. Complaining of left foot pain. Vital signs stable. His temperature max yesterday was 101.1, LABORATORY DATA: WBC today 14.4, platelets 319, neutrophils 70.9. BUN 9, creatinine 0.74. Urinalysis on admission was negative for nitrite, leukocyte esterase. Serology for HIV and hepatitis panel have been negative. MICROBIOLOGY: Blood culture 1 set growing gram-positive cocci in clusters. DIAGNOSTICS: MRI of the ankle revealed a large tibiotalar joint effusion with mild tenosynovitis, no acute fracture or dislocation. ANTIMICROBIALS: The patient is on: 1. IV clindamycin 2. Rocephin. PHYSICAL EXAMINATION: GENERAL: This is a well-nourished, well-developed, middle-aged man who is alert, in no distress. HEENT: Head atraumatic, normocephalic. Sclerae anicteric. The patient has scleral erythema with some purulence on his eyelashes. Buccal mucosa pink with white thrush on his tongue. NECK: Supple. No cervical lymphadenopathy. CHEST: Rise symmetrical. Breath sounds clear. HEART: S1, S2. ABDOMEN: Soft. Bowel sounds present. EXTREMITIES: Left foot erythema at the medial malleolus and slightly laterally as well with pain on palpation. The patient also has left knee slightly more swollen than the right. There is also some fluctuance present; however, difficult to exclude anatomical structure as it is present in both knees. ASSESSMENT: 1. Sepsis with fevers and leukocytosis. 2. Left foot cellulitis, questionable tenosynovitis, of note patient developed symptoms after having a stone massage on his left foot that could be secondary to trauma. 3. Left knee effusion. 4. Acute bilateral conjunctivitis. 5. Gram-positive cocci bacteremia, possibly contaminant. PLAN: We are going to discontinue clindamycin and start patient on IV vancomycin. We will start ciprofloxacin eyedrops as he is not improving on gentamicin eye drops. Keep him on IV Rocephin. Keep left lower extremity elevated. Consider ortho evaluation for left knee fluid aspiration and evaluation of his left foot as well. Swab nares for MRSA. Above was discussed with patient, family and staff. Dictated By: ZEINA FITZPATRICK NOUGAT CANDY MAK[employer] HELPER for [employer] STORM/NTS Conf#: [id number] [facility]#: [id number] MTDD
--- NOTE | 2016-05-26 15:19 | RADRPT ---
Echocardiogram Report Patient Name: ARIC LOTT Gender: Male Date: 1970 Study Date: 26-May-2016 [employer] Supervisor: Donnie Chacko [facility] Location: 601 Ref. Physician: JONI MARK Quality: Good Procedures: Transthoracic echocardiogram with complete 2D, M-Mode, and doppler examination. Indications: Chest Pain. 2D/M Mode Doppler Measurement Value Normal Ranges Measurement Value Normal Ranges LVIDd 2D 4.4 3.5 - 5.6 cm AV Peak Eliud 1.3 m/sec LVIDs 2D 3.0 2.1 - 4.1 cm AV Peak PG 7.1 mmHg LVPWd 2D 0.9 0.6 - 1.1 cm LVOT Peak Eliud 1.0 m/sec IVSd 2D 1.1 0.6 - 1.1 cm LVOT Peak PG 3.8 mmHg AoR Diam 2D 2.8 2.0 - 3.7 cm MV E Peak Eliud 0.9 m/sec EDV 2D 89.5 cm3 MV A Peak Eliud 0.7 m/sec ESV 2D 26.8 cm3 MV E/A 1.4 LA Dimen 2D 2.9 2.3 - 4.0 cm MV Decel Time 150 msec MV Decel Coles 6 MV E/A 1.4 Findings Left Ventricle: Normal left ventricular systolic function. Normal left ventricular cavity size. Normal left ventricular wall thickness. Ejection fraction is visually estimated at 65 %. Right Ventricle: Normal right ventricular size. Normal right ventricular systolic function. Left Atrium: The left atrium is normal in size. Right Atrium: The right atrium is normal in size. Mitral Valve: Normal appearance and function of the mitral valve with trace physiologic regurgitation. Aortic Valve: Trace aortic valve regurgitation. Tricuspid Valve: Normal appearance and function of the tricuspid valve with trace physiologic regurgitation. Pulmonic Valve: Normal pulmonic valve appearance. Pericardium: Normal pericardium with no significant pericardial effusion. Aorta: Normal aortic root. IVC: Normal size and normal respiratory collapse consistent with normal right atrial pressure. Conclusions 1.Normal left ventricular systolic function. Normal left ventricular cavity size. Normal left ventricular wall thickness. Ejection fraction is visually estimated at 65 %. 2.Normal appearance and function of the mitral valve with trace physiologic regurgitation. 3.Trace aortic valve regurgitation. 4.Normal appearance and function of the tricuspid valve with trace physiologic regurgitation. Electronically Signed By: Enrico Farr 26-May-2016 15:18:28 -0700 Patient Name: ARIC LOTT Study Date: 26-May-[id number]
[2016-05-26] MEDS: VANCOMYCIN 1 GM in NS 250 ML IVPB SCH (15:23)
[2016-05-26] MEDS: CEFTRIAXONE 1 GM/50 ML (PMX) 50 ML IVPB SCH (17:40)
[2016-05-26 19:23] VITALS: BP 139/79; RESP 24
[2016-05-26] MEDS: morphine 2 MG INJ IV PRN (19:59)
[2016-05-26] MEDS: CIPROFLOXACIN 0.3% 3.5 GM OPH OINT BOTH EYES SCH (20:21)
[2016-05-26] MEDS: HYDROCODONE/APAP (5/325) TAB PO PRN (22:09)
[2016-05-27] MEDS: VANCOMYCIN 1 GM in NS 250 ML IVPB SCH ×2 (02:31→15:09)
[2016-05-27 05:55] LABS: ADD SCAN DIFF NO
[2016-05-27] MEDS: HYDROCODONE/APAP (5/325) TAB PO PRN ×2 (05:58→12:52)
[2016-05-27 06:07] LABS: BASOPHIL # 0.1 10^3/ul (0.0-0.1); BASOPHILS % 0.4 % (0.0-2.0); EOSINOPHILS # 0.1 10^3/ul (0.0-0.5); EOSINOPHILS % 0.7 % (0.0-7.0); HEMATOCRIT 39.8 % (42.0-52.0); LYMPHOCYTES # 2.2 10^3/ul (0.8-2.9); LYMPHOCYTES % 17.1 % (15.0-51.0); MEAN CORPUSCULAR HEMOGLOBIN 29.3 pg (29.0-33.0); MEAN CORPUSCULAR HGB CONC 32.7 g/dl (32.0-37.0); MEAN CORPUSCULAR VOLUME 89.8 fl (82.0-101.0); MEAN PLATELET VOLUME 9.5 fl (7.4-10.4); MONOCYTE # 1.5 10^3/ul (0.3-0.9); MONOCYTES % 11.8 % (0.0-11.0); NEUTROPHIL # 8.8 10^3/ul (1.6-7.5); NEUTROPHILS % 69.3 % (39.0-77.0); PLATELET COUNT 378 10^3/UL (140-415); RED BLOOD COUNT 4.43 10^6/ul (4.70-6.10); RED CELL DISTRIBUTION WIDTH 12.9 % (11.5-14.5); WHITE BLOOD COUNT 12.7 10^3/ul (4.8-10.8)
[2016-05-27 06:22] LABS: POTASSIUM 3.9 mmol/L (3.5-5.1)
[2016-05-27 06:25] LABS: CREATININE 0.74 mg/dl (0.61-1.24)
[2016-05-27 06:26] LABS: CALCIUM 9.3 mg/dl (8.4-10.2)
[2016-05-27 07:16] VITALS: BP 134/79; RESP 22
[2016-05-27] MEDS: FAMOTIDINE 20 MG INJ IV SCH (08:11)
[2016-05-27] MEDS: CIPROFLOXACIN 0.3% 3.5 GM OPH OINT BOTH EYES SCH ×3 (08:12→22:22)
[2016-05-27] MEDS: GENTAMICIN 0.3% 5 ML OPH BOTH EYES SCH ×2 (08:12→22:08)
[2016-05-27] MEDS: morphine 2 MG INJ IV PRN ×3 (08:18→19:55)
[2016-05-27 10:40] LABS: HLA B-27 POSITIVE (NEGATIVE)
--- NOTE | 2016-05-27 11:36 | PN ---
Date/Time of Note Date/Time of Note DATE: 05/27/16 TIME: 11:35 Assessment/Plan VTE Prophylaxis VTE Prophylaxis Intervention: SCD's Lines/Catheters [facility] Saline Lock Urinary Cath still in place: No Assessment/Plan Assessment/Plan Left lower extremity/ankle cellulitis with elevated white count and fever. concerned about if pt has septic joint acute transaminitis with elevated total bilirubin Blood culture positive with staphylococcus Conjunctivitis plan: continue current care Bp stable US abdomen- negative for liver cirrhosis, LFTs still mildy elevated IV abx as per ID, Blood cx grew staphylococcus Orthoepdic Consult In dandre Barboza to see pt will follow up Subjective 24 Hr Interval Summary Free Text/Dictation doing ok, c/o left ankle pain Exam/Review of Systems Vital Signs Vitals Vital Signs Date Time Temp Pulse Resp B/P Pulse Ox O2 Delivery O2 Flow Rate FiO2 05/27/16 07:16 98.3 102 22 134/79 96 05/25/16 16:15 Room Air Intake and Output 05/26/16 05/26/16 05/27/16 15:00 23:00 07:00 Intake Total 2040 ml 1700 ml Output Total 1200 ml Balance 2040 ml 500 ml Exam GENERAL APPEARANCE: The patient is lying in bed comfortably without any distress. He is awake, alert, oriented, is able to answer my questions properly. RESPIRATORY: Effort is normal. Clear to auscultation bilaterally. CARDIOVASCULAR: Normal S1, S2. Regular rhythm and rate. No murmur, no bruits , no edema. Peripheral pulses, radial pulses palpable. Cap refill is normal. CHEST: Normal expansion of thorax during inspiration. GASTROINTESTINAL: Abdomen is soft, nontender, not distended. Bowel sounds present. No guarding, no rebound. NEUROLOGIC: Cranial nerves II through XII grossly intact. . Results Result Diagram: 05/27/16 0507 05/27/16 0507 Results 24 hrs Laboratory Tests Test 05/27/16 05:07 White Blood Count 12.7 H Red Blood Count 4.43 L Hemoglobin 13.0 L Hematocrit 39.8 L Mean Corpuscular Volume 89.8 Mean Corpuscular Hemoglobin 29.3 Mean Corpuscular Hemoglobin Concent 32.7 Red Cell Distribution Width 12.9 Platelet Count 378 Mean Platelet Volume 9.5 Neutrophils % 69.3 Lymphocytes % 17.1 Monocytes % 11.8 H Eosinophils % 0.7 Basophils % 0.4 Nucleated Red Blood Cells % 0.0 Neutrophils # 8.8 H Lymphocytes # 2.2 Monocytes # 1.5 H Eosinophils # 0.1 Basophils # 0.1 Nucleated Red Blood Cells # 0.0 Sodium Level 139 Potassium Level 3.9 Chloride Level 100 Carbon Dioxide Level 28 Anion Gap 15 Blood Urea Nitrogen 8 Creatinine 0.74 Glucose Level 123 Calcium Level 9.3 Medications Medications Current Medications Ceftriaxone Sodium (Rocephin) 50 ml @ 100 mls/hr Q24H IVPB Last administered on 05/26/16 17:40; Admin Dose 100 MLS/HR; Start 05/26/16 at 18:00 Ondansetron HCl (Zofran Tab) 4 mg Q6H PRN PO NAUSEA AND/OR VOMITING; Start at 17:30 Acetaminophen (Tylenol Tab) 650 mg Q6H PRN PO PAIN LEVEL 1-3 OR FEVER; Start at 17:30 Acetaminophen (Tylenol Supp) 650 mg Q6H PRN [place] PAIN LEVEL 1-3 OR FEVER; Start 05/25/16 at 17:30 Acetaminophen/ Hydrocodone Bitart ([place] (5/325)) 1 tab Q6H PRN PO MODERATE PAIN LEVEL 4-6 Last administered on 05/27/16 05:58; Admin Dose 1 TAB; Start at 17:30 Morphine Sulfate (morphine) 1 mg Q4H PRN IV SEVERE PAIN LEVEL 7-10 Last administered on 05/27/16 08:18; Admin Dose 1 MG; Start 05/25/16 at 17:30 Docusate Sodium (Colace) 100 mg Q12H PRN PO CONSTIPATION; Start 05/25/16 at 17: 30 Famotidine (Pepcid Iv) 20 mg Q12 IV Last administered on 05/27/16 08:11; Admin Dose 20 MG; Start 05/25/16 at 21:00 Gentamicin Sulfate (Gentamicin 0.3% Oph Drop) 1 drop Q12 BOTH EYES Last administered on 05/27/16 08:12; Admin Dose 1 DROP; Start 05/25/16 at 21:00; Stop 05/28/16 at 12:00 Ciprofloxacin HCl 1 applic 1 applic TID BOTH EYES Last administered on 3/22/ 17at 08:12; Admin Dose 1 APPLIC; Start 05/26/16 at 21:00 Vancomycin HCl (Vancocin) 250 ml @ 125 mls/hr Q12H IVPB Last administered on t 02:31; Admin Dose 125 MLS/HR; Start 05/26/16 at 15:00 RADHAMES JUNG MD May 27, 2016 11:36
--- NOTE | 2016-05-27 12:47 | CONS ---
Date/Time of Note Date/Time of Note DATE: 05/27/16 TIME: 12:45 Assessment/Plan Assessment/Plan Chief Complaint/Hosp Course SUBJECTIVE: The patient is alert, lying comfortably in bed. No fevers. LABORATORY DATA: WBC today 14.4, platelets 319, neutrophils 70.9. BUN 9, creatinine 0.74. Urinalysis on admission was negative for nitrite, leukocyte esterase. Serology for HIV and hepatitis panel have been negative. MICROBIOLOGY: Blood culture 1 set growing gram-positive cocci in clusters. DIAGNOSTICS: MRI of the ankle revealed a large tibiotalar joint effusion with mild tenosynovitis, no acute fracture or dislocation. ANTIMICROBIALS: The patient is on: 1. Vanco 2. Rocephin. PHYSICAL EXAMINATION: GENERAL: This is a well-nourished, well-developed, middle-aged man who is alert, in no distress. HEENT: Head atraumatic, normocephalic. Sclerae anicteric. The patient has scleral erythema with some purulence on his eyelashes. Buccal mucosa pink with white thrush on his tongue. NECK: Supple. No cervical lymphadenopathy. CHEST: Rise symmetrical. Breath sounds clear. HEART: S1, S2. ABDOMEN: Soft. Bowel sounds present. EXTREMITIES: Left foot erythema at the medial malleolus and slightly laterally as well with pain on palpation. The patient also has left knee slightly more swollen than the right. There is also some fluctuance present; however, difficult to exclude anatomical structure as it is present in both knees. ASSESSMENT: 1. Sepsis with fevers and leukocytosis. 2. Left foot cellulitis, questionable tenosynovitis, of note patient developed symptoms after having a stone massage on his left foot that could be secondary to trauma. 3. Left knee effusion. 4. Acute bilateral conjunctivitis==> on Cipro gtts. 5. Gram-positive cocci bacteremia, possibly contaminant. 6. Oral thrush PLAN: Clinically stable, fevers resolving, L foot looks better, continue abx, repeat bld cx, add oral Nystatin, keep LLE elevated and f/u eye drainage cx DW family/pt at bedside Problems: Consultation Date/Type/Reason Admit Date/Time May 25, 2016 at 11:13 Initial Consult Date 05/25/16 Type of Consultation: id Exam/Review of Systems Vital Signs Vitals Vital Signs Date Time Temp Pulse Resp B/P Pulse Ox O2 Delivery O2 Flow Rate FiO2 05/27/16 07:16 98.3 102 22 134/79 96 05/25/16 16:15 Room Air Intake and Output 05/26/16 05/26/16 05/27/16 14:59 22:59 06:59 Intake Total 2040 ml 1700 ml Output Total 1200 ml Balance 2040 ml 500 ml Results Result Diagram: 05/27/16 0507 05/27/16 0507 Results 24 hrs Laboratory Tests Test 05/27/16 05:07 White Blood Count 12.7 H Red Blood Count 4.43 L Hemoglobin 13.0 L Hematocrit 39.8 L Mean Corpuscular Volume 89.8 Mean Corpuscular Hemoglobin 29.3 Mean Corpuscular Hemoglobin Concent 32.7 Red Cell Distribution Width 12.9 Platelet Count 378 Mean Platelet Volume 9.5 Neutrophils % 69.3 Lymphocytes % 17.1 Monocytes % 11.8 H Eosinophils % 0.7 Basophils % 0.4 Nucleated Red Blood Cells % 0.0 Neutrophils # 8.8 H Lymphocytes # 2.2 Monocytes # 1.5 H Eosinophils # 0.1 Basophils # 0.1 Nucleated Red Blood Cells # 0.0 Sodium Level 139 Potassium Level 3.9 Chloride Level 100 Carbon Dioxide Level 28 Anion Gap 15 Blood Urea Nitrogen 8 Creatinine 0.74 Glucose Level 123 Calcium Level 9.3 Medications Medications Current Medications Ceftriaxone Sodium (Rocephin) 50 ml @ 100 mls/hr Q24H IVPB Last administered on 05/26/16 17:40; Admin Dose 100 MLS/HR; Start 05/26/16 at 18:00 Ondansetron HCl (Zofran Tab) 4 mg Q6H PRN PO NAUSEA AND/OR VOMITING; Start at 17:30 Acetaminophen (Tylenol Tab) 650 mg Q6H PRN PO PAIN LEVEL 1-3 OR FEVER; Start at 17:30 Acetaminophen (Tylenol Supp) 650 mg Q6H PRN [place] PAIN LEVEL 1-3 OR FEVER; Start 05/25/16 at 17:30 Acetaminophen/ Hydrocodone Bitart ([place] (5/325)) 1 tab Q6H PRN PO MODERATE PAIN LEVEL 4-6 Last administered on 05/27/16 05:58; Admin Dose 1 TAB; Start at 17:30 Morphine Sulfate (morphine) 1 mg Q4H PRN IV SEVERE PAIN LEVEL 7-10 Last administered on 05/27/16 08:18; Admin Dose 1 MG; Start 05/25/16 at 17:30 Docusate Sodium (Colace) 100 mg Q12H PRN PO CONSTIPATION; Start 05/25/16 at 17: 30 Famotidine (Pepcid Iv) 20 mg Q12 IV Last administered on 05/27/16 08:11; Admin Dose 20 MG; Start 05/25/16 at 21:00 Gentamicin Sulfate (Gentamicin 0.3% Oph Drop) 1 drop Q12 BOTH EYES Last administered on 05/27/16 08:12; Admin Dose 1 DROP; Start 05/25/16 at 21:00; Stop 05/28/16 at 12:00 Ciprofloxacin HCl 1 applic 1 applic TID BOTH EYES Last administered on 08:12; Admin Dose 1 APPLIC; Start 05/26/16 at 21:00 Vancomycin HCl (Vancocin) 250 ml @ 125 mls/hr Q12H IVPB Last administered on 02:31; Admin Dose 125 MLS/HR; Start 05/26/16 at 15:00 ZEINA FITZPATRICK NP May 27, 2016 12:47
[2016-05-27] MEDS: NYSTATIN SUSP 5 ML CUP PO SCH ×3 (13:03→22:03)
[2016-05-27 13:58] LABS: ANA SCREEN NEGATIVE (NEGATIVE)
[2016-05-27] MEDS: CEFTRIAXONE 1 GM/50 ML (PMX) 50 ML IVPB SCH (17:30)
[2016-05-27 19:22] VITALS: BP 155/98; RESP 20
[2016-05-27] MEDS: FAMOTIDINE 20 MG TAB PO SCH (22:02)
[2016-05-28] MEDS: morphine 2 MG INJ IV PRN ×2 (00:06→06:56)
[2016-05-28 03:01] LABS: ADD SCAN DIFF NO
[2016-05-28 03:04] LABS: BASOPHIL # 0.1 10^3/ul (0.0-0.1); BASOPHILS % 0.4 % (0.0-2.0); EOSINOPHILS # 0.1 10^3/ul (0.0-0.5); HEMATOCRIT 42.5 % (42.0-52.0); HEMOGLOBIN 14.2 g/dl (14.0-18.0); LYMPHOCYTES # 2.2 10^3/ul (0.8-2.9); LYMPHOCYTES % 15.6 % (15.0-51.0); MEAN CORPUSCULAR HEMOGLOBIN 29.5 pg (29.0-33.0); MEAN CORPUSCULAR HGB CONC 33.4 g/dl (32.0-37.0); MEAN CORPUSCULAR VOLUME 88.2 fl (82.0-101.0); MEAN PLATELET VOLUME 9.3 fl (7.4-10.4); MONOCYTE # 1.4 10^3/ul (0.3-0.9); MONOCYTES % 9.8 % (0.0-11.0); NEUTROPHIL # 10.3 10^3/ul (1.6-7.5); NEUTROPHILS % 72.6 % (39.0-77.0); PLATELET COUNT 414 10^3/UL (140-415); RED BLOOD COUNT 4.82 10^6/ul (4.70-6.10); RED CELL DISTRIBUTION WIDTH 12.9 % (11.5-14.5); WHITE BLOOD COUNT 14.2 10^3/ul (4.8-10.8)
[2016-05-28 03:12] LABS: ALBUMIN 3.2 g/dl (3.3-4.9)
[2016-05-28 03:13] LABS: POTASSIUM 3.5 mmol/L (3.5-5.1)
[2016-05-28 03:15] LABS: INR 1.15; PROTIME 14.7 Sec (12.2-14.2); PT RATIO 1.1
[2016-05-28 03:15] LABS: BILIRUBIN,INDIRECT 0.6 mg/dl (0-1.1); BILIRUBIN,TOTAL 0.6 mg/dl (0.2-1.3); CREATININE 0.68 mg/dl (0.61-1.24)
[2016-05-28 03:16] LABS: PARTIAL THROMBOPLASTIN TIME 37.1 Sec (25.0-35.0)
[2016-05-28 03:16] LABS: ALBUMIN/GLOBULIN RATIO 0.76; CALCIUM 10.1 mg/dl (8.4-10.2); TOTAL PROTEIN 7.4 g/dl (6.1-8.1)
[2016-05-28] MEDS: VANCOMYCIN 1 GM in NS 250 ML IVPB SCH ×3 (03:39→20:29)
[2016-05-28 07:53] VITALS: BP 141/84; RESP 20
[2016-05-28] MEDS: FAMOTIDINE 20 MG TAB PO SCH ×2 (08:43→20:29)
[2016-05-28] MEDS: NYSTATIN SUSP 5 ML CUP PO SCH ×4 (08:43→22:03)
[2016-05-28] MEDS: CIPROFLOXACIN 0.3% 3.5 GM OPH OINT BOTH EYES SCH ×3 (08:44→20:33)
[2016-05-28] MEDS: GENTAMICIN 0.3% 5 ML OPH BOTH EYES SCH (08:44)
[2016-05-28] MEDS: HYDROCODONE/APAP (5/325) TAB PO PRN ×2 (08:50→12:47)
--- NOTE | 2016-05-28 13:20 | CONS ---
Date/Time of Note Date/Time of Note DATE: 05/28/16 TIME: 13:17 Assessment/Plan Assessment/Plan Chief Complaint/Hosp Course SUBJECTIVE: The patient is alert, c/o RLE pain and B knee pain, no fevers, nad DIAGNOSTICS: MRI of the ankle revealed a large tibiotalar joint effusion with mild tenosynovitis, no acute fracture or dislocation. ANTIMICROBIALS: The patient is on: 1. Vanco 2. Rocephin. PHYSICAL EXAMINATION: GENERAL: This is a well-nourished, well-developed, middle-aged man who is alert, in no distress. HEENT: Head atraumatic, normocephalic. Sclerae anicteric. The patient has scleral erythema with some purulence on his eyelashes. Buccal mucosa pink with white thrush on his tongue. NECK: Supple. No cervical lymphadenopathy. CHEST: Rise symmetrical. Breath sounds clear. HEART: S1, S2. ABDOMEN: Soft. Bowel sounds present. EXTREMITIES: Left foot erythema and edema persist, B knee swelling with fluctuance ASSESSMENT: 1. Sepsis with fevers and leukocytosis. 2. Left foot cellulitis, questionable tenosynovitis, of note patient developed symptoms after having a stone massage on his left foot that could be secondary to trauma. 3. B knee effusion. 4. Acute bilateral conjunctivitis==> improving on Cipro gtts. 5. Gram-positive cocci bacteremia==> cw contaminant. 6. Oral thrush==> on Nystatin PLAN: Clinically stable, awaiting for Ortho evaluation, continue abx, keep LLE elevated, supportive care DW staff Problems: Consultation Date/Type/Reason Admit Date/Time May 25, 2016 at 11:13 Initial Consult Date 05/25/16 Type of Consultation: id Exam/Review of Systems Vital Signs Vitals Vital Signs Date Time Temp Pulse Resp B/P Pulse Ox O2 Delivery O2 Flow Rate FiO2 05/28/16 07:53 99.1 107 20 141/84 98 05/25/16 16:15 Room Air Intake and Output 05/27/16 05/27/16 05/28/16 15:00 23:00 07:00 Intake Total 1660 ml 1050 ml Output Total 1200 ml 1000 ml Balance 460 ml 50 ml Results Result Diagram: 05/28/16 0225 05/28/16 0225 Results 24 hrs Laboratory Tests Test 05/28/16 02:25 05/28/16 02:30 White Blood Count 14.2 H Red Blood Count 4.82 Hemoglobin 14.2 Hematocrit 42.5 Mean Corpuscular Volume 88.2 Mean Corpuscular Hemoglobin 29.5 Mean Corpuscular Hemoglobin Concent 33.4 Red Cell Distribution Width 12.9 Platelet Count 414 Mean Platelet Volume 9.3 Neutrophils % 72.6 Lymphocytes % 15.6 Monocytes % 9.8 Eosinophils % 1.0 Basophils % 0.4 Nucleated Red Blood Cells % 0.0 Neutrophils # 10.3 H Lymphocytes # 2.2 Monocytes # 1.4 H Eosinophils # 0.1 Basophils # 0.1 Nucleated Red Blood Cells # 0.0 Sodium Level 137 Potassium Level 3.5 Chloride Level 98 Carbon Dioxide Level 26 Anion Gap 17 H Blood Urea Nitrogen 8 Creatinine 0.68 Glucose Level 168 Calcium Level 10.1 Total Bilirubin 0.6 Direct Bilirubin 0.00 Indirect Bilirubin 0.6 Aspartate Amino Transf (AST/SGOT) 54 H Alanine Aminotransferase (ALT/SGPT) 50 Alkaline Phosphatase 188 H Total Protein 7.4 Albumin 3.2 L Globulin 4.20 H Albumin/Globulin Ratio 0.76 Vancomycin Level Trough 5.0 L Prothrombin Time 14.7 H Prothrombin Time Ratio 1.1 INR International Normalized Ratio 1.15 Activated Partial Thromboplast Time 37.1 H Medications Medications Current Medications Ceftriaxone Sodium (Rocephin) 50 ml @ 100 mls/hr Q24H IVPB Last administered on 05/27/16 17:30; Admin Dose 100 MLS/HR; Start 05/26/16 at 18:00 Ondansetron HCl (Zofran Tab) 4 mg Q6H PRN PO NAUSEA AND/OR VOMITING; Start at 17:30 Acetaminophen (Tylenol Tab) 650 mg Q6H PRN PO PAIN LEVEL 1-3 OR FEVER Last administered on 05/28/16 00:11; Admin Dose 650 MG; Start 05/25/16 at 17:30 Acetaminophen (Tylenol Supp) 650 mg Q6H PRN [place] PAIN LEVEL 1-3 OR FEVER; Start 05/25/16 at 17:30 Docusate Sodium (Colace) 100 mg Q12H PRN PO CONSTIPATION; Start 05/25/16 at 17: 30 Ciprofloxacin HCl (Ciloxan 0.3% Oph Oint) 1 applic TID BOTH EYES Last administered on 05/28/16 12:48; Admin Dose 1 APPLIC; Start 05/26/16 at 21:00 Nystatin (Nystatin Susp) 5 ml QID PO Last administered on 05/28/16 12:46; Admin Dose 5 ML; Start 05/27/16 at 13:00 Famotidine 20 mg 20 mg Q12 PO Last administered on 05/28/16 08:43; Admin Dose 20 MG; Start 05/27/16 at 21:00 Vancomycin HCl (Vancocin) 250 ml @ 125 mls/hr Q8H IVPB Last administered on 12:47; Admin Dose 125 MLS/HR; Start 05/28/16 at 03:30 Acetaminophen/ Hydrocodone Bitart ([place] (5/325)) 1 tab Q4H PRN PO MODERATE PAIN LEVEL 4-6 Last administered on 05/28/16 12:47; Admin Dose 1 TAB; Start at 13:30 Morphine Sulfate (morphine) 2 mg Q4H PRN IV PAIN; Start 05/28/16 at 14:00 ZEINA FITZPATRICK NP May 28, 2016 13:20
[2016-05-28] MEDS ORDERED: LIDOCAINE 1% (MDV) 20 ML INJ SC ONE (13:30)
--- NOTE | 2016-05-28 14:04 | PN ---
Date/Time of Note Date/Time of Note DATE: 05/28/16 TIME: 14:01 Assessment/Plan VTE Prophylaxis VTE Prophylaxis Intervention: contraindicated Lines/Catheters IV Catheter Type (from Nrs): Saline Lock Urinary Cath still in place: No Subjective 24 Hr Interval Summary Free Text/Dictation Procedure note. After obtaining wristten onsent, the right inee was asirated, under aseptic technique, of 30cc straw colored, mildly turbid fluid. No complications. Fluid sent for studies. Exam/Review of Systems Vital Signs Vitals Vital Signs Date Time Temp Pulse Resp B/P Pulse Ox O2 Delivery O2 Flow Rate FiO2 05/28/16 07:53 99.1 107 20 141/84 98 05/25/16 16:15 Room Air Intake and Output 05/27/16 05/27/16 05/28/16 14:59 22:59 06:59 Intake Total 1660 ml 1050 ml Output Total 1200 ml 1000 ml Balance 460 ml 50 ml Results Result Diagram: 05/28/1622405/28/16224 Results 24 hrs Laboratory Tests Test 05/28/16 02:25 05/28/16 02:30 White Blood Count 14.2 H Red Blood Count 4.82 Hemoglobin 14.2 Hematocrit 42.5 Mean Corpuscular Volume 88.2 Mean Corpuscular Hemoglobin 29.5 Mean Corpuscular Hemoglobin Concent 33.4 Red Cell Distribution Width 12.9 Platelet Count 414 Mean Platelet Volume 9.3 Neutrophils % 72.6 Lymphocytes % 15.6 Monocytes % 9.8 Eosinophils % 1.0 Basophils % 0.4 Nucleated Red Blood Cells % 0.0 Neutrophils # 10.3 H Lymphocytes # 2.2 Monocytes # 1.4 H Eosinophils # 0.1 Basophils # 0.1 Nucleated Red Blood Cells # 0.0 Sodium Level 137 Potassium Level 3.5 Chloride Level 98 Carbon Dioxide Level 26 Anion Gap 17 H Blood Urea Nitrogen 8 Creatinine 0.68 Glucose Level 168 Calcium Level 10.1 Total Bilirubin 0.6 Direct Bilirubin 0.00 Indirect Bilirubin 0.6 Aspartate Amino Transf (AST/SGOT) 54 H Alanine Aminotransferase (ALT/SGPT) 50 Alkaline Phosphatase 188 H Total Protein 7.4 Albumin 3.2 L Globulin 4.20 H Albumin/Globulin Ratio 0.76 Vancomycin Level Trough 5.0 L Prothrombin Time 14.7 H Prothrombin Time Ratio 1.1 INR International Normalized Ratio 1.15 Activated Partial Thromboplast Time 37.1 H Medications Medications Current Medications Ceftriaxone Sodium (Rocephin) 50 ml @ 100 mls/hr Q24H IVPB Last administered on 05/27/16 17:30; Admin Dose 100 MLS/HR; Start 05/26/16 at 18:00 Ondansetron HCl (Zofran Tab) 4 mg Q6H PRN PO NAUSEA AND/OR VOMITING; Start at 17:30 Acetaminophen (Tylenol Tab) 650 mg Q6H PRN PO PAIN LEVEL 1-3 OR FEVER Last administered on 05/28/16 00:11; Admin Dose 650 MG; Start 05/25/16 at 17:30 Acetaminophen (Tylenol Supp) 650 mg Q6H PRN [place] PAIN LEVEL 1-3 OR FEVER; Start 05/25/16 at 17:30 Docusate Sodium (Colace) 100 mg Q12H PRN PO CONSTIPATION; Start 05/25/16 at 17: 30 Ciprofloxacin HCl (Ciloxan 0.3% Oph Oint) 1 applic TID BOTH EYES Last administered on 05/28/16 12:48; Admin Dose 1 APPLIC; Start 05/26/16 at 21:00 Nystatin (Nystatin Susp) 5 ml QID PO Last administered on 05/28/16 12:46; Admin Dose 5 ML; Start 05/27/16 at 13:00 Famotidine 20 mg 20 mg Q12 PO Last administered on 05/28/16 08:43; Admin Dose 20 MG; Start 05/27/16 at 21:00 Vancomycin HCl (Vancocin) 250 ml @ 125 mls/hr Q8H IVPB Last administered on 12:47; Admin Dose 125 MLS/HR; Start 05/28/16 at 03:30 Acetaminophen/ Hydrocodone Bitart ([place] (5/325)) 1 tab Q4H PRN PO MODERATE PAIN LEVEL 4-6 Last administered on 05/28/16 12:47; Admin Dose 1 TAB; Start at 13:30 Morphine Sulfate (morphine) 2 mg Q4H PRN IV PAIN; Start 05/28/16 at 14:00 JO ANN DOMINGUEZ MD May 28, 2016 14:04
--- NOTE | 2016-05-28 14:23 | CONS ---
DATE OF ADMISSION: 05/25/2016 DATE OF CONSULTATION: TYPE OF CONSULTATION: Rheumatology HISTORY OF PRESENT ILLNESS: The patient is a 45-year-old man with no past medical history who was well until about 10 days ago when he developed some foot or heel ache. The pain was primarily at the right heel. He had some massage at the left heel area and subsequently developed soon thereafter pain and swelling at the left ankle, as well as pain and some swelling at the knees, and pain at the right thumb and right shoulder. The patient was admitted to the hospital and the knee swelling significantly has increased. In addition, around that same time, he also developed bilateral eye inflammation with erythema and some pain. The patient was found to have staph species in the blood, felt to likely be a contaminant that was in one culture. The other culture has been no growth after 3 days. Urine culture negative. Laboratory studies have included a very high sedimentation rate and C-reactive protein and some mild leukocytosis. The patient also has been noted to have a positive HLA-B27 with a negative rheumatoid factor, negative JOSEFINA. REVIEW OF SYSTEMS: The patient denies a history of prior arthritis. Denies a history of psoriasis or other rashes. Denies history of inflammatory bowel disease. Denies back pain. Denies STD or recent gastroenteritis. Has had a low grade fever in the last few days. Otherwise review of systems is otherwise unremarkable. He denies dysuria or urethritis symptoms or discharge. Denies shortness of breath or chest pain, denies abdominal pain, nausea, vomiting. PHYSICAL EXAMINATION: VITAL SIGNS: Temperature 99.1, pulse 107, respiration rate 20, blood pressure 141/84, pulse oximetry 98% on room air. GENERAL: Well-developed, well-nourished [place] man, alert, oriented x3. SKIN: Without lesions. HEENT: With conjunctival erythema. Unclear if scleritis or episcleritis at this point. NECK: Without lymphadenopathy, supple. CHEST: Clear to auscultation. HEART: Regular rate and rhythm without gallops or murmurs. ABDOMEN: Soft without masses or tenderness. MUSCULOSKELETAL: Reveals left ankle area with some erythema and mild swelling, both knees with significant effusions and tenderness, but no erythema, some swelling at the right thumb and right shoulder with tenderness and pain with range of motion. Other joints with good range of motion without synovitis. NEUROLOGIC: Grossly intact. ASSESSMENT 1. 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 Unclear if this also may be consistent with psoriatic arthritis, although no evidence of psoriasis at this point. Also, may be consistent with ankylosing spondylitis. No evidence of inflammatory bowel disease. 2. 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 3. Right knee pain and swelling. 4. Left knee pain and swelling secondary to above. Doubt infection, although we will rule out infection from fluid in the knee. PLAN: 1. Strongly suggest ophthalmologic evaluation for most appropriate treatment. 2. If no evidence for infection, would start with corticosteroid treatment. 3. He will likely need in the future, TNF biologic medication. 4. Naproxen 500 mg bid PC PROCEDURE: Left knee aspiration will be attempted today to rule out possibility of infection (although doubt). Thank you for having me see the patient rheumatologically. Dictated By: JO ANN POTTER/RUY Conf#: [id number] DID#: [id number] MTDVivian
[2016-05-28] MEDS: DOCUSATE SODIUM 100 MG CAP PO PRN (16:04)
[2016-05-28] MEDS: NAPROXEN 500 MG TAB PO SCH ×2 (16:04→22:03)
--- NOTE | 2016-05-28 17:38 | PN ---
Date/Time of Note Date/Time of Note DATE: 05/28/16 TIME: 17:36 Assessment/Plan VTE Prophylaxis VTE Prophylaxis Intervention: SCD's Lines/Catheters IV C[facility]ter Type (from [facility]): Saline Lock Urinary Cath still in place: No Assessment/Plan Assessment/Plan Left lower extremity/ankle cellulitis with elevated white count and fever. concerned about if pt has septic joint acute transaminitis with elevated total bilirubin Blood culture positive with staphylococcus Conjunctivitis plan: continue current care Bp stable US abdomen- negative for liver cirrhosis, LFTs still mildy elevated IV abx as per ID, Blood cx grew staphylococcus Orthoepdic Consult to see pt will also request Rheumatology to see pt will follow up Subjective 24 Hr Interval Summary Free Text/Dictation WBC still high, still c/o left ankle pain, bilateral knee pain Exam/Review of Systems Vital Signs Vitals Vital Signs Date Time Temp Pulse Resp B/P Pulse Ox O2 Delivery O2 Flow Rate FiO2 05/28/16 07:53 99.1 107 20 141/84 98 05/25/16 16:15 Room Air Intake and Output 05/27/16 05/27/16 05/28/16 14:59 22:59 06:59 Intake Total 1660 ml 1050 ml Output Total 1200 ml 1000 ml Balance 460 ml 50 ml Exam GENERAL APPEARANCE: The patient is lying in bed comfortably without any distress. He is awake, alert, oriented, is able to answer my questions properly. RESPIRATORY: Effort is normal. Clear to auscultation bilaterally. CARDIOVASCULAR: Normal S1, S2. Regular rhythm and rate. No murmur, no bruits , no edema. Peripheral pulses, radial pulses palpable. Cap refill is normal. CHEST: Normal expansion of thorax during inspiration. GASTROINTESTINAL: Abdomen is soft, nontender, not distended. Bowel sounds present. No guarding, no rebound. NEUROLOGIC: Cranial nerves II through XII grossly intact Results Result Diagram: 05/28/1622405/28/16224 Results 24 hrs Laboratory Tests Test 05/28/16 02:25 05/28/16 02:30 White Blood Count 14.2 H Red Blood Count 4.82 Hemoglobin 14.2 Hematocrit 42.5 Mean Corpuscular Volume 88.2 Mean Corpuscular Hemoglobin 29.5 Mean Corpuscular Hemoglobin Concent 33.4 Red Cell Distribution Width 12.9 Platelet Count 414 Mean Platelet Volume 9.3 Neutrophils % 72.6 Lymphocytes % 15.6 Monocytes % 9.8 Eosinophils % 1.0 Basophils % 0.4 Nucleated Red Blood Cells % 0.0 Neutrophils # 10.3 H Lymphocytes # 2.2 Monocytes # 1.4 H Eosinophils # 0.1 Basophils # 0.1 Nucleated Red Blood Cells # 0.0 Sodium Level 137 Potassium Level 3.5 Chloride Level 98 Carbon Dioxide Level 26 Anion Gap 17 H Blood Urea Nitrogen 8 Creatinine 0.68 Glucose Level 168 Calcium Level 10.1 Total Bilirubin 0.6 Direct Bilirubin 0.00 Indirect Bilirubin 0.6 Aspartate Amino Transf (AST/SGOT) 54 H Alanine Aminotransferase (ALT/SGPT) 50 Alkaline Phosphatase 188 H Total Protein 7.4 Albumin 3.2 L Globulin 4.20 H Albumin/Globulin Ratio 0.76 Vancomycin Level Trough 5.0 L Prothrombin Time 14.7 H Prothrombin Time Ratio 1.1 INR International Normalized Ratio 1.15 Activated Partial Thromboplast Time 37.1 H Medications Medications Current Medications Ceftriaxone Sodium (Rocephin) 50 ml @ 100 mls/hr Q24H IVPB Last administered on 05/27/16 17:30; Admin Dose 100 MLS/HR; Start 05/26/16 at 18:00 Ondansetron HCl (Zofran Tab) 4 mg Q6H PRN PO NAUSEA AND/OR VOMITING; Start at 17:30 Acetaminophen (Tylenol Tab) 650 mg Q6H PRN PO PAIN LEVEL 1-3 OR FEVER Last administered on 05/28/16 00:11; Admin Dose 650 MG; Start 05/25/16 at 17:30 Acetaminophen (Tylenol Supp) 650 mg Q6H PRN [place] PAIN LEVEL 1-3 OR FEVER; Start 05/25/16 at 17:30 Docusate Sodium (Colace) 100 mg Q12H PRN PO CONSTIPATION Last administered on 16:04; Admin Dose 100 MG; Start 05/25/16 at 17:30 Ciprofloxacin HCl (Ciloxan 0.3% Oph Oint) 1 applic TID BOTH EYES Last administered on 05/28/16 12:48; Admin Dose 1 APPLIC; Start 05/26/16 at 21:00 Nystatin (Nystatin Susp) 5 ml QID PO Last administered on 05/28/16 16:04; Admin Dose 5 ML; Start 05/27/16 at 13:00 Famotidine 20 mg 20 mg Q12 PO Last administered on 05/28/16 08:43; Admin Dose 20 MG; Start 05/27/16 at 21:00 Vancomycin HCl (Vancocin) 250 ml @ 125 mls/hr Q8H IVPB Last administered on 12:47; Admin Dose 125 MLS/HR; Start 05/28/16 at 03:30 Acetaminophen/ Hydrocodone Bitart ([employer] (5/325)) 1 tab Q4H PRN PO MODERATE PAIN LEVEL 4-6 Last administered on 05/28/16 12:47; Admin Dose 1 TAB; Start at 13:30 Morphine Sulfate (morphine) 2 mg Q4H PRN IV PAIN; Start 05/28/16 at 14:00 Naproxen (Naprosyn) 500 mg BID PO Last administered on 05/28/16 16:04; Admin Dose 500 MG; Start 05/28/16 at 14:20 Miscellaneous Information (*Rx Drug Level Order Reminder*) VANCOMYCIN TROUGH AT 1030 ONCE ONCE XX ; Start 05/29/16 at 10:30; Stop 05/29/16 at 10:31 RADHAMES JUNG MD May 28, 2016 17:38
[2016-05-28] MEDS: CEFTRIAXONE 1 GM/50 ML (PMX) 50 ML IVPB SCH (17:55)
[2016-05-28 18:47] LABS: SYNOVIAL FLUID TYPE Left Knee
[2016-05-28 18:48] LABS: SYNOVIAL FLUID CLARITY Cloudy; SYNOVIAL FLUID COLOR Yellow; SYNOVIAL FLUID WBC 12445 /cmm (0-150)
[2016-05-28 18:51] LABS: LYMPHOCYTES,SYNOVIAL FLUID 18; NEUTROPHILS,SYNOVIAL FLUID 58 % (0-25)
[2016-05-28 19:31] LABS: FLUID GLUCOSE 62 mg/dl; FLUID TOTAL PROTEIN 4.2 g/dl
[2016-05-28 19:32] VITALS: BP 136/82; RESP 20
[2016-05-28 19:35] LABS: FLUID TYPE LEFT KNEE
[2016-05-29] MEDS: VANCOMYCIN 1 GM in NS 250 ML IVPB SCH ×3 (02:43→20:01)
[2016-05-29 05:33] LABS: ADD SCAN DIFF NO
[2016-05-29 05:54] LABS: BASOPHIL # 0.1 10^3/ul (0.0-0.1); BASOPHILS % 0.5 % (0.0-2.0); EOSINOPHILS # 0.4 10^3/ul (0.0-0.5); HEMATOCRIT 39.4 % (42.0-52.0); HEMOGLOBIN 13.1 g/dl (14.0-18.0); LYMPHOCYTES # 1.7 10^3/ul (0.8-2.9); LYMPHOCYTES % 14.3 % (15.0-51.0); MEAN CORPUSCULAR HEMOGLOBIN 29.9 pg (29.0-33.0); MEAN CORPUSCULAR HGB CONC 33.2 g/dl (32.0-37.0); MEAN PLATELET VOLUME 9.5 fl (7.4-10.4); MONOCYTE # 1.5 10^3/ul (0.3-0.9); NEUTROPHIL # 8.3 10^3/ul (1.6-7.5); NEUTROPHILS % 69.1 % (39.0-77.0); PLATELET COUNT 408 10^3/UL (140-415); RED BLOOD COUNT 4.38 10^6/ul (4.70-6.10); WHITE BLOOD COUNT 12.1 10^3/ul (4.8-10.8)
[2016-05-29 06:00] LABS: ALBUMIN 2.9 g/dl (3.3-4.9); POTASSIUM 3.5 mmol/L (3.5-5.1)
[2016-05-29 06:01] LABS: INR 1.14; PROTIME 14.6 Sec (12.2-14.2); PT RATIO 1.1
[2016-05-29 06:02] LABS: CREATININE 0.61 mg/dl (0.61-1.24); PARTIAL THROMBOPLASTIN TIME 42.2 Sec (25.0-35.0)
[2016-05-29 06:03] LABS: ALBUMIN/GLOBULIN RATIO 0.74; BILIRUBIN,INDIRECT 0.3 mg/dl (0-1.1); BILIRUBIN,TOTAL 0.3 mg/dl (0.2-1.3); TOTAL PROTEIN 6.8 g/dl (6.1-8.1)
[2016-05-29 06:04] LABS: CALCIUM 9.3 mg/dl (8.4-10.2)
[2016-05-29 07:59] VITALS: BP 135/83; RESP 18
[2016-05-29] MEDS: FAMOTIDINE 20 MG TAB PO SCH (08:53)
[2016-05-29] MEDS: NAPROXEN 500 MG TAB PO SCH ×2 (08:53→20:48)
[2016-05-29] MEDS: CIPROFLOXACIN 0.3% 3.5 GM OPH OINT BOTH EYES SCH ×3 (08:53→20:48)
[2016-05-29] MEDS: NYSTATIN SUSP 5 ML CUP PO SCH ×4 (08:56→20:49)
[2016-05-29] MEDS ORDERED: PANTOPRAZOLE (EC) 40 MG TAB PO ONE (11:30)
--- NOTE | 2016-05-29 11:44 | PN ---
Date/Time of Note Date/Time of Note DATE: 05/29/16 TIME: 11:29 Assessment/Plan VTE Prophylaxis VTE Prophylaxis Intervention: SCD's Lines/Catheters IV [facility]from [facility] Saline Lock Urinary Cath still in place: No Assessment/Plan Assessment/Plan Left lower extremity/ankle cellulitis with elevated white count and fever 2/2 HLA B27 reactive arthritis acute transaminitis with elevated total bilirubin Blood culture positive with staphylococcus Iritis plan: continue current care Bp stable US abdomen- negative for liver cirrhosis IV abx as per ID, Blood cx grew staphylococcus Orthoepdic Consult to see pt s/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 by [employer] - fluid cell count grew [id number]- reactive, fluid cx pending Discussed with ID- they said it is ok to start PO steroids, , on Naproxen 500 mg BID< will add protonix PO will follow up Subjective 24 Hr Interval Summary Free Text/Dictation HLAB27 positive, S/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, Awaiting orthopedic evaluation Exam/Review of Systems Vital Signs Vitals Vital Signs Date Time Temp Pulse Resp B/P Pulse Ox O2 Delivery O2 Flow Rate FiO2 05/29/16 07:59 98.7 90 18 135/83 96 05/25/16 16:15 Room Air Intake and Output 05/28/16 05/28/16 05/29/16 15:00 23:00 07:00 Intake Total 2250 ml 1050 ml Output Total 1400 ml 1250 ml Balance 850 ml -200 ml Exam GENERAL APPEARANCE: The patient is lying in bed comfortably without any distress. He is awake, alert, oriented, is able to answer my questions properly. RESPIRATORY: Effort is normal. Clear to auscultation bilaterally. CARDIOVASCULAR: Normal S1, S2. Regular rhythm and rate. No murmur, no bruits , no edema. Peripheral pulses, radial pulses palpable. Cap refill is normal. CHEST: Normal expansion of thorax during inspiration. GASTROINTESTINAL: Abdomen is soft, nontender, not distended. Bowel sounds present. No guarding, no rebound. NEUROLOGIC: Cranial nerves II through XII grossly intact Results Result Diagram: 05/29/16 0452 05/29/16 0452 Results 24 hrs Laboratory Tests Test 05/28/16 14:00 05/29/16 04:52 Body Fluid Type LEFT KNEE Body Fluid Glucose 62 Body Fluid Total Protein 4.2 Synovial Fluid Source Left Knee Synovial Fluid Color Yellow Synovial Fluid Appearance Cloudy Synovial Fluid Volume 38.0 H Synovial Fluid WBC 96668 H Synovial Fluid Neutrophils 58 H Synovial Fluid Lymphocytes 18 Synovial Fluid Monocytes 21 Synovial Fluid Other Cells Synovial Fluid Crystals No crystals seen White Blood Count 12.1 H Red Blood Count 4.38 L Hemoglobin 13.1 L Hematocrit 39.4 L Mean Corpuscular Volume 90.0 Mean Corpuscular Hemoglobin 29.9 Mean Corpuscular Hemoglobin Concent 33.2 Red Cell Distribution Width 13.0 Platelet Count 408 Mean Platelet Volume 9.5 Neutrophils % 69.1 Lymphocytes % 14.3 L Monocytes % 12.0 H Eosinophils % 3.0 Basophils % 0.5 Nucleated Red Blood Cells % 0.0 Neutrophils # 8.3 H Lymphocytes # 1.7 Monocytes # 1.5 H Eosinophils # 0.4 Basophils # 0.1 Nucleated Red Blood Cells # 0.0 Prothrombin Time 14.6 H Prothrombin Time Ratio 1.1 INR International Normalized Ratio 1.14 Activated Partial Thromboplast Time 42.2 H Sodium Level 143 Potassium Level 3.5 Chloride Level 101 Carbon Dioxide Level 29 Anion Gap 17 H Blood Urea Nitrogen 9 Creatinine 0.61 Glucose Level 143 Calcium Level 9.3 Total Bilirubin 0.3 Direct Bilirubin 0.00 Indirect Bilirubin 0.3 Aspartate Amino Transf (AST/SGOT) 42 Alanine Aminotransferase (ALT/SGPT) 45 Alkaline Phosphatase 196 H Total Protein 6.8 Albumin 2.9 L Globulin 3.90 H Albumin/Globulin Ratio 0.74 Medications Medications Current Medications Ceftriaxone Sodium (Rocephin) 50 ml @ 100 mls/hr Q24H IVPB Last administered on 05/28/16 17:55; Admin Dose 100 MLS/HR; Start 05/26/16 at 18:00 Ondansetron HCl (Zofran Tab) 4 mg Q6H PRN PO NAUSEA AND/OR VOMITING; Start at 17:30 Acetaminophen (Tylenol Tab) 650 mg Q6H PRN PO PAIN LEVEL 1-3 OR FEVER Last administered on 05/28/16 00:11; Admin Dose 650 MG; Start 05/25/16 at 17:30 Acetaminophen (Tylenol Supp) 650 mg Q6H PRN [place] PAIN LEVEL 1-3 OR FEVER; Start 05/25/16 at 17:30 Docusate Sodium (Colace) 100 mg Q12H PRN PO CONSTIPATION Last administered on 16:04; Admin Dose 100 MG; Start 05/25/16 at 17:30 Ciprofloxacin HCl (Ciloxan 0.3% Oph Oint) 1 applic TID BOTH EYES Last administered on 05/29/16 08:53; Admin Dose 1 APPLIC; Start 05/26/16 at 21:00 Nystatin (Nystatin Susp) 5 ml QID PO Last administered on 05/28/16 22:03; Admin Dose 5 ML; Start 05/27/16 at 13:00 Famotidine 20 mg 20 mg Q12 PO Last administered on 05/29/16 08:53; Admin Dose 20 MG; Start 05/27/16 at 21:00 Vancomycin HCl (Vancocin) 250 ml @ 125 mls/hr Q8H IVPB Last administered on 02:43; Admin Dose 125 MLS/HR; Start 05/28/16 at 03:30 Acetaminophen/ Hydrocodone Bitart ([place] (5/325)) 1 tab Q4H PRN PO MODERATE PAIN LEVEL 4-6 Last administered on 05/28/16 12:47; Admin Dose 1 TAB; Start at 13:30 Morphine Sulfate (morphine) 2 mg Q4H PRN IV PAIN; Start 05/28/16 at 14:00 Naproxen (Naprosyn) 500 mg BID PO Last administered on 05/29/16 08:53; Admin Dose 500 MG; Start 05/28/16 at 14:20 RADHAMES JUNG MD May 29, 2016 11:42
--- NOTE | 2016-05-29 11:49 | CONS ---
Date/Time of Note Date/Time of Note DATE: 05/29/16 TIME: 11:46 Assessment/Plan Assessment/Plan Chief Complaint/Hosp Course SUBJECTIVE: No acute events, afebrile, nad DIAGNOSTICS: MRI of the ankle revealed a large tibiotalar joint effusion with mild tenosynovitis, no acute fracture or dislocation. ANTIMICROBIALS: The patient is on: 1. Vanco 2. Rocephin. PHYSICAL EXAMINATION: GENERAL: This is a well-nourished, well-developed, middle-aged [place] man who is alert, in no distress. HEENT: Head atraumatic, normocephalic. Sclerae anicteric. The patient has scleral erythema with some purulence on his eyelashes. Buccal mucosa pink with white thrush on his tongue. NECK: Supple. No cervical lymphadenopathy. CHEST: Rise symmetrical. Breath sounds clear. HEART: S1, S2. ABDOMEN: Soft. Bowel sounds present. EXTREMITIES: Left foot erythema and edema persist, B knee swelling with fluctuance ASSESSMENT: 1. Sepsis with fevers and leukocytosis==> resolving. 2. 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 3. B knee effusion==> s/p aspiration. 4. Acute bilateral conjunctivitis==> improving on Cipro gtts. 5. Gram-positive cocci bacteremia==> cw contaminant. 6. Oral thrush==> on Nystatin PLAN: Clinically stable, rheumatology rec-s noted, ok for steroids, f/u aspirated fluid cx, continue abx DW staff Problems: Consultation Date/Type/Reason Admit Date/Time May 25, 2016 at 11:13 Initial Consult Date 05/25/16 Type of Consultation: id Exam/Review of Systems Vital Signs Vitals Vital Signs Date Time Temp Pulse Resp B/P Pulse Ox O2 Delivery O2 Flow Rate FiO2 05/29/16 07:59 98.7 90 18 135/83 96 05/25/16 16:15 Room Air Intake and Output 05/28/16 05/28/16 05/29/16 15:00 23:00 07:00 Intake Total 2250 ml 1050 ml Output Total 1400 ml 1250 ml Balance 850 ml -200 ml Results Result Diagram: 05/29/16 0452 05/29/16 0452 Results 24 hrs Laboratory Tests Test 05/28/16 14:00 05/29/16 04:52 05/29/16 10:50 Body Fluid Type LEFT KNEE Body Fluid Glucose 62 Body Fluid Total Protein 4.2 Synovial Fluid Source Left Knee Synovial Fluid Color Yellow Synovial Fluid Appearance Cloudy Synovial Fluid Volume 38.0 H Synovial Fluid WBC 60795 H Synovial Fluid Neutrophils 58 H Synovial Fluid Lymphocytes 18 Synovial Fluid Monocytes 21 Synovial Fluid Other Cells Synovial Fluid Crystals No crystals seen White Blood Count 12.1 H Red Blood Count 4.38 L Hemoglobin 13.1 L Hematocrit 39.4 L Mean Corpuscular Volume 90.0 Mean Corpuscular Hemoglobin 29.9 Mean Corpuscular Hemoglobin Concent 33.2 Red Cell Distribution Width 13.0 Platelet Count 408 Mean Platelet Volume 9.5 Neutrophils % 69.1 Lymphocytes % 14.3 L Monocytes % 12.0 H Eosinophils % 3.0 Basophils % 0.5 Nucleated Red Blood Cells % 0.0 Neutrophils # 8.3 H Lymphocytes # 1.7 Monocytes # 1.5 H Eosinophils # 0.4 Basophils # 0.1 Nucleated Red Blood Cells # 0.0 Prothrombin Time 14.6 H Prothrombin Time Ratio 1.1 INR International Normalized Ratio 1.14 Activated Partial Thromboplast Time 42.2 H Sodium Level 143 Potassium Level 3.5 Chloride Level 101 Carbon Dioxide Level 29 Anion Gap 17 H Blood Urea Nitrogen 9 Creatinine 0.61 Glucose Level 143 Calcium Level 9.3 Total Bilirubin 0.3 Direct Bilirubin 0.00 Indirect Bilirubin 0.3 Aspartate Amino Transf (AST/SGOT) 42 Alanine Aminotransferase (ALT/SGPT) 45 Alkaline Phosphatase 196 H Total Protein 6.8 Albumin 2.9 L Globulin 3.90 H Albumin/Globulin Ratio 0.74 Vancomycin Level Trough 12.4 Medications Medications Current Medications Ceftriaxone Sodium (Rocephin) 50 ml @ 100 mls/hr Q24H IVPB Last administered on 05/28/16 17:55; Admin Dose 100 MLS/HR; Start 05/26/16 at 18:00 Ondansetron HCl (Zofran Tab) 4 mg Q6H PRN PO NAUSEA AND/OR VOMITING; Start at 17:30 Acetaminophen (Tylenol Tab) 650 mg Q6H PRN PO PAIN LEVEL 1-3 OR FEVER Last administered on 05/28/16 00:11; Admin Dose 650 MG; Start 05/25/16 at 17:30 Acetaminophen (Tylenol Supp) 650 mg Q6H PRN [place] PAIN LEVEL 1-3 OR FEVER; Start 05/25/16 at 17:30 Docusate Sodium (Colace) 100 mg Q12H PRN PO CONSTIPATION Last administered on 16:04; Admin Dose 100 MG; Start 05/25/16 at 17:30 Ciprofloxacin HCl (Ciloxan 0.3% Oph Oint) 1 applic TID BOTH EYES Last administered on 05/29/16 08:53; Admin Dose 1 APPLIC; Start 05/26/16 at 21:00 Nystatin 5 ml 5 ml QID PO Last administered on 05/28/16 22:03; Admin Dose 5 ML ; Start 05/27/16 at 13:00 Vancomycin HCl (Vancocin) 250 ml @ 125 mls/hr Q8H IVPB Last administered on 02:43; Admin Dose 125 MLS/HR; Start 05/28/16 at 03:30 Acetaminophen/ Hydrocodone Bitart ([place] (5/325)) 1 tab Q4H PRN PO MODERATE PAIN LEVEL 4-6 Last administered on 05/28/16 12:47; Admin Dose 1 TAB; Start at 13:30 Morphine Sulfate (morphine) 2 mg Q4H PRN IV PAIN; Start 05/28/16 at 14:00 Naproxen (Naprosyn) 500 mg BID PO Last administered on 05/29/16 08:53; Admin Dose 500 MG; Start 05/28/16 at 14:20 Pantoprazole (Protonix Tab) 40 mg DAILY@06 PO ; Start 05/30/16 at 06:00 ZEINA FITZPATRICK NP May 29, 2016 11:49
--- NOTE | 2016-05-29 11:52 | CONS ---
Date/Time of Note Date/Time of Note DATE: 05/29/16 TIME: 11:30 Consult Date/Type/Reason Admit Date/Time May 25, 2016 at 11:13 Initial Consult Date 05/25/16 Type of Consultation: Rheum Subjective Started last night on Naproxen and feels markedly better today. Much less arthralgias (although knees still with effusion), Right shoulder without pain and good ROM today. Eyes feel much better. No new complaints. No GI symptoms. Objective Alert, Oriented, NAD. Skin without rash. HEENT. Conjunctival/sunconjunctival erythema, blood less prominent. PERRL. Neck without lymphadenopathy. Chest clear Heart RRR Abd. Soft Ext. Less erythema left ankle. Minimal tendenrress. Knees with effusion but only mild tenderness. Better ROM. Hands without tenderness. Right shoulder without tenderness and good ROM. Other joints without synovitis. Neurol grossly intact. Vital Signs Date Time Temp Pulse Resp B/P Pulse Ox O2 Delivery O2 Flow Rate FiO2 05/29/16 07:59 98.7 90 18 135/83 96 05/25/16 16:15 Room Air Intake and Output 05/28/16 05/28/16 05/29/16 15:00 23:00 07:00 Intake Total 2250 ml 1050 ml Output Total 1400 ml 1250 ml Balance 850 ml -200 ml Results/Medications Result Diagram: 05/29/16 0452 05/29/16 0452 Results 24 hrs Laboratory Tests Test 05/28/16 14:00 05/29/16 04:52 Body Fluid Type LEFT KNEE Body Fluid Glucose 62 Body Fluid Total Protein 4.2 Synovial Fluid Source Left Knee Synovial Fluid Color Yellow Synovial Fluid Appearance Cloudy Synovial Fluid Volume 38.0 H Synovial Fluid WBC 79589 H Synovial Fluid Neutrophils 58 H Synovial Fluid Lymphocytes 18 Synovial Fluid Monocytes 21 Synovial Fluid Other Cells Synovial Fluid Crystals No crystals seen White Blood Count 12.1 H Red Blood Count 4.38 L Hemoglobin 13.1 L Hematocrit 39.4 L Mean Corpuscular Volume 90.0 Mean Corpuscular Hemoglobin 29.9 Mean Corpuscular Hemoglobin Concent 33.2 Red Cell Distribution Width 13.0 Platelet Count 408 Mean Platelet Volume 9.5 Neutrophils % 69.1 Lymphocytes % 14.3 L Monocytes % 12.0 H Eosinophils % 3.0 Basophils % 0.5 Nucleated Red Blood Cells % 0.0 Neutrophils # 8.3 H Lymphocytes # 1.7 Monocytes # 1.5 H Eosinophils # 0.4 Basophils # 0.1 Nucleated Red Blood Cells # 0.0 Prothrombin Time 14.6 H Prothrombin Time Ratio 1.1 INR International Normalized Ratio 1.14 Activated Partial Thromboplast Time 42.2 H Sodium Level 143 Potassium Level 3.5 Chloride Level 101 Carbon Dioxide Level 29 Anion Gap 17 H Blood Urea Nitrogen 9 Creatinine 0.61 Glucose Level 143 Calcium Level 9.3 Total Bilirubin 0.3 Direct Bilirubin 0.00 Indirect Bilirubin 0.3 Aspartate Amino Transf (AST/SGOT) 42 Alanine Aminotransferase (ALT/SGPT) 45 Alkaline Phosphatase 196 H Total Protein 6.8 Albumin 2.9 L Globulin 3.90 H Albumin/Globulin Ratio 0.74 Medications Current Medications Ceftriaxone Sodium (Rocephin) 50 ml @ 100 mls/hr Q24H IVPB Last administered on 05/28/16 17:55; Admin Dose 100 MLS/HR; Start 05/26/16 at 18:00 Ondansetron HCl (Zofran Tab) 4 mg Q6H PRN PO NAUSEA AND/OR VOMITING; Start at 17:30 Acetaminophen (Tylenol Tab) 650 mg Q6H PRN PO PAIN LEVEL 1-3 OR FEVER Last administered on 05/28/16 00:11; Admin Dose 650 MG; Start 05/25/16 at 17:30 Acetaminophen (Tylenol Supp) 650 mg Q6H PRN [place] PAIN LEVEL 1-3 OR FEVER; Start 05/25/16 at 17:30 Docusate Sodium (Colace) 100 mg Q12H PRN PO CONSTIPATION Last administered on 16:04; Admin Dose 100 MG; Start 05/25/16 at 17:30 Ciprofloxacin HCl (Ciloxan 0.3% Oph Oint) 1 applic TID BOTH EYES Last administered on 05/29/16 08:53; Admin Dose 1 APPLIC; Start 05/26/16 at 21:00 Nystatin (Nystatin Susp) 5 ml QID PO Last administered on 05/28/16 22:03; Admin Dose 5 ML; Start 05/27/16 at 13:00 Famotidine 20 mg 20 mg Q12 PO Last administered on 05/29/16 08:53; Admin Dose 20 MG; Start 05/27/16 at 21:00 Vancomycin HCl (Vancocin) 250 ml @ 125 mls/hr Q8H IVPB Last administered on 02:43; Admin Dose 125 MLS/HR; Start 05/28/16 at 03:30 Acetaminophen/ Hydrocodone Bitart ([place] (5/325)) 1 tab Q4H PRN PO MODERATE PAIN LEVEL 4-6 Last administered on 05/28/16 12:47; Admin Dose 1 TAB; Start at 13:30 Morphine Sulfate (morphine) 2 mg Q4H PRN IV PAIN; Start 05/28/16 at 14:00 Naproxen (Naprosyn) 500 mg BID PO Last administered on 05/29/16 08:53; Admin Dose 500 MG; Start 05/28/16 at 14:20 Assessment/Plan Chief Complaint/Hosp Course Ass. 1. Reactive Arthritis with positive HLA-B27, arthritis, uveitis. 2. Arthiritis at knees, ankles, right hand and right shoulder improved. No evidence of infection there, or Gout. 3. Eye inflammation improved. Rec. 1. Continue Naproxen. 2. Add PPI 3. Will hold off steroids at this point as feeling much better. 4. Will likely need TNF medication eventually. 5. Will check Quantiferon Gold to eval for Latent TB. No evidence of active TB. 6. Consider stopping antibiotics Problems: JO ANN DOMINGUEZ MD May 29, 2016 11:51
--- NOTE | 2016-05-29 16:29 | CONS ---
DATE OF ADMISSION: 05/25/2016 DATE OF CONSULTATION: ORTHOPEDIC CONSULTATION REFERRING PHYSICIAN: Dr. Davenport CHIEF COMPLAINT: Left ankle swelling. HISTORY: The patient is a 45-year-old male with a long history of left ankle pain and swelling. De nies any lacerations or cuts. He is not certain if he had sprained the ankle. He also has complain ts of pain in the right shoulder and the left hand. He states that over the past few days the pain and swelling has diminished considerably. He is able to move the joints well and put weight on the leg. He denies any fever or chills. An MRI scan has been performed. There is effusion noted in th e ankle joint with no ligamentous injury or fractures. His white cell count is 12.1 today and decre ased from 14.2 yesterday. On examination, there is no fluctuance on palpation. There appears to be some bruising along the medial aspect of the ankle joint. The ankle range of motion is virtually f ull. Neurovascular status is intact. There is some swelling noted in the left leg and the knee. T he knee has been aspirated, and culture is pending. IMPRESSION: Cellulitis, left leg, possible inflammatory arthritis. RECOMMENDATION: The patient appears to be responding well to antibiotic treatment. While he denies diabetes, he has elevated glucose level of 190 on 05/25/2016. At this point in time, I do not see any evidence for surgical intervention. Continue antibiotic treatment. Dictated By: MARCELINO WYNNE/NTS Conf#: [id number] DID#: [id number]
[2016-05-29] MEDS: CEFTRIAXONE 1 GM/50 ML (PMX) 50 ML IVPB SCH (18:10)
[2016-05-29 19:18] VITALS: BP 123/84; RESP 20
[2016-05-29] MEDS: morphine 2 MG INJ IV PRN (22:45)
[2016-05-30] MEDS: VANCOMYCIN 1 GM in NS 250 ML IVPB SCH ×3 (03:47→20:23)
[2016-05-30] MEDS: morphine 2 MG INJ IV PRN ×3 (04:14→20:24)
[2016-05-30] MEDS: PANTOPRAZOLE (EC) 40 MG TAB PO SCH (05:36)
[2016-05-30 07:37] VITALS: BP 138/90; RESP 18
[2016-05-30] MEDS: NAPROXEN 500 MG TAB PO SCH (08:16)
[2016-05-30] MEDS: CIPROFLOXACIN 0.3% 3.5 GM OPH OINT BOTH EYES SCH ×3 (08:16→20:23)
[2016-05-30] MEDS: NYSTATIN SUSP 5 ML CUP PO SCH ×4 (08:21→20:23)
--- NOTE | 2016-05-30 12:48 | PN ---
Date/Time of Note Date/Time of Note DATE: 05/30/16 TIME: 12:44 Assessment/Plan VTE Prophylaxis VTE Prophylaxis Intervention: SCD's Lines/Catheters IV Catheter Type (from Nrs): Saline Lock Urinary Cath still in place: No Assessment/Plan Assessment/Plan Left lower extremity/ankle cellulitis with elevated white count and fever 2/2 HLA B27 reactive arthritis acute transaminitis with elevated total bilirubin Blood culture positive with staphylococcus Iritis plan: continue current care Bp stable US abdomen- negative for liver cirrhosis IV abx as per ID, Blood cx grew staphylococcus- follow up blood cx x 2 negative Orthoepdic Consult to see pt s/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 - fluid cell count grew [id number]- reactive, fluid cx neative, will start PO prednisone for reactive arthritis Discussed with ID- they said it is ok to start PO steroids, , on Naproxen 500 mg BID, on protonix for GI prophylaxis will follow up Subjective 24 Hr Interval Summary Free Text/Dictation wound cx from Knee negative, BP stable, Pain improving Exam/Review of Systems Vital Signs Vitals Vital Signs Date Time Temp Pulse Resp B/P Pulse Ox O2 Delivery O2 Flow Rate FiO2 05/30/16 07:37 98.9 102 18 138/90 97 Intake and Output 05/29/16 05/29/16 05/30/16 15:00 23:00 07:00 Intake Total 250 ml 1460 ml 400 ml Output Total 740 ml 600 ml Balance 250 ml 720 ml -200 ml Exam GENERAL APPEARANCE: The patient is lying in bed comfortably without any distress. He is awake, alert, oriented, is able to answer my questions properly. RESPIRATORY: Effort is normal. Clear to auscultation bilaterally. CARDIOVASCULAR: Normal S1, S2. Regular rhythm and rate. No murmur, no bruits , no edema. Peripheral pulses, radial pulses palpable. Cap refill is normal. CHEST: Normal expansion of thorax during inspiration. GASTROINTESTINAL: Abdomen is soft, nontender, not distended. Bowel sounds present. No guarding, no rebound. NEUROLOGIC: Cranial nerves II through XII grossly intact Results Result Diagram: 05/29/16 0452 05/29/16 045 Medications Medications Current Medications Ceftriaxone Sodium (Rocephin) 50 ml @ 100 mls/hr Q24H IVPB Last administered on 05/29/16 18:10; Admin Dose 100 MLS/HR; Start 05/26/16 at 18:00 Ondansetron HCl (Zofran Tab) 4 mg Q6H PRN PO NAUSEA AND/OR VOMITING; Start at 17:30 Acetaminophen (Tylenol Tab) 650 mg Q6H PRN PO PAIN LEVEL 1-3 OR FEVER Last administered on 05/28/16 00:11; Admin Dose 650 MG; Start 05/25/16 at 17:30 Acetaminophen (Tylenol Supp) 650 mg Q6H PRN [place] PAIN LEVEL 1-3 OR FEVER; Start 05/25/16 at 17:30 Docusate Sodium (Colace) 100 mg Q12H PRN PO CONSTIPATION Last administered on 16:04; Admin Dose 100 MG; Start 05/25/16 at 17:30 Ciprofloxacin HCl (Ciloxan 0.3% Oph Oint) 1 applic TID BOTH EYES Last administered on 05/30/16 12:20; Admin Dose 1 APPLIC; Start 05/26/16 at 21:00 Nystatin 5 ml 5 ml QID PO Last administered on 05/28/16 22:03; Admin Dose 5 ML ; Start 05/27/16 at 13:00 Vancomycin HCl (Vancocin) 250 ml @ 125 mls/hr Q8H IVPB Last administered on 12:16; Admin Dose 125 MLS/HR; Start 05/28/16 at 03:30 Acetaminophen/ Hydrocodone Bitart ([place] (5/325)) 1 tab Q4H PRN PO MODERATE PAIN LEVEL 4-6 Last administered on 05/28/16 12:47; Admin Dose 1 TAB; Start at 13:30 Morphine Sulfate (morphine) 2 mg Q4H PRN IV PAIN Last administered on 12:19; Admin Dose 2 MG; Start 05/28/16 at 14:00 Naproxen (Naprosyn) 500 mg BID PO Last administered on 05/30/16 08:16; Admin Dose 500 MG; Start 05/28/16 at 14:20 Pantoprazole (Protonix Tab) 40 mg DAILY@06 PO Last administered on 05/30/16 05 :36; Admin Dose 40 MG; Start 3/25/17 at 06:00 Miscellaneous Information (*Rx Drug Level Order Reminder*) VANCOMYCIN TROUGH AT 1030 ONCE ONCE XX ; Start 05/31/16 at 10:30; Stop 05/31/16 at 10:31 RADHAMES JUNG MD May 30, 2016 12:48
--- NOTE | 2016-05-30 16:07 | CONS ---
Date/Time of Note Date/Time of Note DATE: 05/30/16 TIME: 16:07 Assessment/Plan Assessment/Plan Additional Assessment/Plan Rectal Bleeding Evaluate GI bleed versus infectious process vs IBD Stool OB, if positive strongly recommend colonoscopy Monitor H&H every 8 hours, transfuse 2 units for hemoglobin less than 7.[address] abdomen C difficle stool test Colonoscopy if clinically indicated, pt advised of R/B/A to procedure declines providing informed consent to proceed Left lower extremity/ankle cellulitis with elevated white count and fever 2/2 HLA B27 reactive arthritis Management per Primary and rheumatology Further recommendations depend on clinical course Patient seen in collaboration with Dr. Rust Consultation Date/Type/Reason Admit Date/Time May 25, 2016 at 11:13 Hx of Present Illness Mr.Jagroop Yancey 45-year-old male that is currently hospitalized secondary toLeft lower extremity/ankle cellulitis with elevated white count and fever 2/2 HLA B27 reactive arthritis. Today patient was noted to have bright red blood per rectum. Patient denies previous episode; however, patient does report history of hemorrhoids that have been treated with homeopathic medications for the last 3-4 months. Patient does report using sesame seed oil around and in his rectum his rectum daily for hemorrhoid treatment. Patient also reports unknown homeopathic medication he takes for hemorrhoids as well. Patient at bedside denies abdominal pain, nausea, vomiting. Patient declines any endoscopic evaluation of rectal bleeding. Patient thinks rectal bleeding may be secondary to ingestion of anti-inflammatory medication and possibly coming from his stomach. Advised patient that ultrasound is not sufficient to evaluate for possible ulceration and GI tract. Patient states he understands the risk and he believes his symptoms are secondary to all the medications he is getting as an inpatient. Patient once again declines endoscopic evaluation of rectal bleeding. Social History Smoking Status: Never smoker Exam/Review of Systems Vital Signs Vitals Vital Signs Date Time Temp Pulse Resp B/P Pulse Ox O2 Delivery O2 Flow Rate FiO2 05/30/16 07:37 98.9 102 18 138/90 97 Intake and Output 05/29/16 05/29/16 05/30/16 15:00 23:00 07:00 Intake Total 250 ml 1460 ml 400 ml Output Total 740 ml 600 ml Balance 250 ml 720 ml -200 ml Exam Constitutional: alert, oriented, well developed Psych: nl mood/affect Head: normocephalic Eyes: EOMI, conjunctivitis, nl lids ENMT: nl external ears & nose, nl lips & teeth, nl nasal mucosa & septum Respiratory: clear to auscultation, normal air movement Cardiovascular: regular rate and rhythm Gastrointestinal: soft, nontender Musculoskeletal: nl extremities to inspection Neurological: SOAPING MACHINE BACK TENDER II-XII intact Results Result Diagram: 05/29/16 04505/29/16 0452 Medications Medications Current Medications Ceftriaxone Sodium (Rocephin) 50 ml @ 100 mls/hr Q24H IVPB Last administered on 05/29/16 18:10; Admin Dose 100 MLS/HR; Start 05/26/16 at 18:00 Ondansetron HCl (Zofran Tab) 4 mg Q6H PRN PO NAUSEA AND/OR VOMITING; Start at 17:30 Acetaminophen (Tylenol Tab) 650 mg Q6H PRN PO PAIN LEVEL 1-3 OR FEVER Last administered on 05/28/16 00:11; Admin Dose 650 MG; Start 05/25/16 at 17:30 Acetaminophen (Tylenol Supp) 650 mg Q6H PRN [place] PAIN LEVEL 1-3 OR FEVER; Start 05/25/16 at 17:30 Docusate Sodium (Colace) 100 mg Q12H PRN PO CONSTIPATION Last administered on 16:04; Admin Dose 100 MG; Start 05/25/16 at 17:30 Ciprofloxacin HCl (Ciloxan 0.3% Oph Oint) 1 applic TID BOTH EYES Last administered on 05/30/16 12:20; Admin Dose 1 APPLIC; Start 05/26/16 at 21:00 Nystatin 5 ml 5 ml QID PO Last administered on 05/28/16 22:03; Admin Dose 5 ML ; Start 05/27/16 at 13:00 Vancomycin HCl (Vancocin) 250 ml @ 125 mls/hr Q8H IVPB Last administered on 12:16; Admin Dose 125 MLS/HR; Start 05/28/16 at 03:30 Acetaminophen/ Hydrocodone Bitart ([place] (5/325)) 1 tab Q4H PRN PO MODERATE PAIN LEVEL 4-6 Last administered on 05/28/16 12:47; Admin Dose 1 TAB; Start at 13:30 Morphine Sulfate (morphine) 2 mg Q4H PRN IV PAIN Last administered on 12:19; Admin Dose 2 MG; Start 05/28/16 at 14:00 Naproxen (Naprosyn) 500 mg BID PO Last administered on 05/30/16 08:16; Admin Dose 500 MG; Start 05/28/16 at 14:20; Status Future Hold Pantoprazole (Protonix Tab) 40 mg DAILY@06 PO Last administered on 05/30/16 05 :36; Admin Dose 40 MG; Start 05/30/16 at 06:00 Miscellaneous Information (*Rx Drug Level Order Reminder*) VANCOMYCIN TROUGH AT 1030 ONCE ONCE XX ; Start 05/31/16 at 10:30; Stop 05/31/16 at 10:31 WILLIAM NOWAK May 30, 2016 16:07 Pantoprazole (Protonix Tab) 40 mg DAILY@06 PO Last administered on 05/30/16 05 :36; Admin Dose 40 MG; Start 05/30/16 at 06:00 Miscellaneous Information (*Rx Drug Level Order Reminder*) VANCOMYCIN TROUGH AT 1030 ONCE ONCE XX ; Start 05/31/16 at 10:30; Stop 05/31/16 at 10:31 WILLIAM NOWAK May 30, 2016 16:07
[2016-05-30] MEDS ORDERED: BARIUM SULF 2% 450 ML BTL (BERRY SMOOTHIE) PO ONE (16:30)
--- NOTE | 2016-05-30 16:46 | CONS ---
Date/Time of Note Date/Time of Note DATE: 05/30/16 TIME: 16:44 Assessment/Plan Assessment/Plan Chief Complaint/Hosp Course ID PROGRESS NOTE CURRENT ABX=> Ceftriaxone, Vanco IV 24H INTERVAL SUMMARY * Awake, still has pain -> family present -> He is very concerned about his eyes tells me in [place] he had this same problem and he saw a specialist who gave him "drops" that resolved the condition and advised him the problem was "serious ". He tells me the erythema has not improved w/Cipro. I advised him that per Rheumatology note, pending Ophthalmology evaluation for steroids. I can add Polytrim to cover Staph/Strep that may be resistant to current Cipro. * He doesn't understand the cause of the arthritis; yet he believes it is improving with antibiotics * s/p 05/28/16 Knee Synovial Fluid Aspirate w/pyuria on fluid analysis Microbiology GRAM STAIN Final POLYMORPH. LEUKOCYTE 2+ . NO ORGANISM SEEN BODY FLUID CULTURE Preliminary No growth after 2 days * DIAGNOSTICS: MRI of the ankle revealed a large tibiotalar joint effusion with mild tenosynovitis, no acute fracture or dislocation. * EYE CULTURE Final Organism 1 COAGULASE NEGATIVE STAPH QUANTITY RARE COAG NEG M.I.C. RX --------- --- CEFAZOLIN R CIPROFLOXACIN >=8 R CLINDAMYCIN <=0.25 S DOXYCYCLINE R ERYTHROMYCIN >=8 R LEVOFLOXACIN >=8 R OXACILLIN >=4 R PENICILLIN-G >=0.5 R RIFAMPIN <=0.5 S VANCOMYCIN 1 S TRIMETHOPRIM/SULFAMETHOXAZOLE 160 R PHYSICAL EXAMINATION: GENERAL:VSS, NAD HEENT: Bilateral conjunctivitis w/erythema no crust, no current discharte NECK: Supple, trachea midline. CHEST: Rise symmetrical, without dyspnea on observation HEART: Pulse RRR ABDOMEN: soft EXTREMITIES: Warm Left foot/ankle erythema and edema persist, B knee swelling with fluctuance ID ASSESSMENT 45 yo M admit with: 1. s/p Sepsis with fevers and leukocytosis=> resolving. * Gram-positive cocci bacteremia=>consistent w/skin contaminant 2. Reactive Arthritis (Justen's) with positive HLA-B27, arthritis, uveitis. * HIV Screen(-) * RPR (-) 3. B knee effusion=> s/p aspiration w/pyuria on synovial fluid analysis * GRAM STAIN Final POLYMORPH. LEUKOCYTE 2+ . NO ORGANISM SEEN BODY FLUID CULTURE Preliminary No growth after 2 day 4. Left foot cellulitis 5. Acute bilateral conjunctivitis=> improving on Cipro gtts. * EYE CULTURE Final Organism 1 COAGULASE NEGATIVE STAPH QUANTITY RARE COAG NEG M.I.C. RX --------- --- CEFAZOLIN R CIPROFLOXACIN >=8 R CLINDAMYCIN <=0.25 S DOXYCYCLINE R ERYTHROMYCIN >=8 R LEVOFLOXACIN >=8 R OXACILLIN >=4 R PENICILLIN-G >=0.5 R RIFAMPIN <=0.5 S VANCOMYCIN 1 S TRIMETHOPRIM/SULFAMETHOXAZOLE 160 R 6. Oral thrush=> on Nystatin 7. FOBT (+) MRSA Nares INVASIVES: PIV ABX ALLERGY: KNDA CURRENT ABX:=> Ceftriaxone, Vanco IV ID RECOMMENDATIONS 1. Continue current ABX * Will add adjunctive Polytrim Eye gtt to cover concern resistant Staph and continue Cipro * Ophthalmology evaluation 2. Observe over the weekend on ABX -> Reassess by ID team next week 3. Appreciate Rheumatology notes: Holding off on steroids due to improvement in status . . Problems: Consultation Date/Type/Reason Admit Date/Time May 25, 2016 at 11:13 Initial Consult Date 05/25/16 Type of Consultation: ID Exam/Review of Systems Vital Signs Vitals Vital Signs Date Time Temp Pulse Resp B/P Pulse Ox O2 Delivery O2 Flow Rate FiO2 05/30/16 07:37 98.9 102 18 138/90 97 Intake and Output 05/29/16 05/29/16 05/30/16 15:00 23:00 07:00 Intake Total 250 ml 1460 ml 400 ml Output Total 740 ml 600 ml Balance 250 ml 720 ml -200 ml Results Result Diagram: 05/29/16 0452 05/29/16 045 Medications Medications Current Medications Ceftriaxone Sodium (Rocephin) 50 ml @ 100 mls/hr Q24H IVPB Last administered on 05/29/16 18:10; Admin Dose 100 MLS/HR; Start 05/26/16 at 18:00 Ondansetron HCl (Zofran Tab) 4 mg Q6H PRN PO NAUSEA AND/OR VOMITING; Start at 17:30 Acetaminophen (Tylenol Tab) 650 mg Q6H PRN PO PAIN LEVEL 1-3 OR FEVER Last administered on 05/28/16 00:11; Admin Dose 650 MG; Start 05/25/16 at 17:30 Acetaminophen (Tylenol Supp) 650 mg Q6H PRN [place] PAIN LEVEL 1-3 OR FEVER; Start 05/25/16 at 17:30 Docusate Sodium (Colace) 100 mg Q12H PRN PO CONSTIPATION Last administered on 16:04; Admin Dose 100 MG; Start 05/25/16 at 17:30 Ciprofloxacin HCl (Ciloxan 0.3% Oph Oint) 1 applic TID BOTH EYES Last administered on 05/30/16 12:20; Admin Dose 1 APPLIC; Start 05/26/16 at 21:00 Nystatin 5 ml 5 ml QID PO Last administered on 05/28/16 22:03; Admin Dose 5 ML ; Start 05/27/16 at 13:00 Vancomycin HCl (Vancocin) 250 ml @ 125 mls/hr Q8H IVPB Last administered on 12:16; Admin Dose 125 MLS/HR; Start 05/28/16 at 03:30 Acetaminophen/ Hydrocodone Bitart ([place] (5/325)) 1 tab Q4H PRN PO MODERATE PAIN LEVEL 4-6 Last administered on 05/28/16 12:47; Admin Dose 1 TAB; Start at 13:30 Morphine Sulfate (morphine) 2 mg Q4H PRN IV PAIN Last administered on 12:19; Admin Dose 2 MG; Start 05/28/16 at 14:00 Naproxen (Naprosyn) 500 mg BID PO Last administered on 05/30/16 08:16; Admin Dose 500 MG; Start 05/28/16 at 14:20; Status Future Hold Pantoprazole (Protonix Tab) 40 mg DAILY@06 PO Last administered on 05/30/16t 05 :36; Admin Dose 40 MG; Start 05/30/16 at 06:00 Miscellaneous Information (*Rx Drug Level Order Reminder*) VANCOMYCIN TROUGH AT 1030 ONCE ONCE XX ; Start 05/31/16 at 10:30; Stop 05/31/16 at 10:31 MERARI TOWNSEND NP May 30, 2016 16:46
[2016-05-30 16:53] LABS: ADD SCAN DIFF NO
[2016-05-30 16:57] LABS: BASOPHIL # 0.1 10^3/ul (0.0-0.1); BASOPHILS % 0.5 % (0.0-2.0); EOSINOPHILS # 0.4 10^3/ul (0.0-0.5); EOSINOPHILS % 4.3 % (0.0-7.0); HEMATOCRIT 40.9 % (42.0-52.0); HEMOGLOBIN 13.1 g/dl (14.0-18.0); LYMPHOCYTES # 1.4 10^3/ul (0.8-2.9); LYMPHOCYTES % 14.6 % (15.0-51.0); MEAN CORPUSCULAR HEMOGLOBIN 28.9 pg (29.0-33.0); MEAN CORPUSCULAR VOLUME 90.1 fl (82.0-101.0); MEAN PLATELET VOLUME 9.3 fl (7.4-10.4); MONOCYTE # 0.9 10^3/ul (0.3-0.9); MONOCYTES % 9.3 % (0.0-11.0); NEUTROPHIL # 6.8 10^3/ul (1.6-7.5); NEUTROPHILS % 69.6 % (39.0-77.0); PLATELET COUNT 515 10^3/UL (140-415); RED BLOOD COUNT 4.54 10^6/ul (4.70-6.10); RED CELL DISTRIBUTION WIDTH 13.4 % (11.5-14.5); WHITE BLOOD COUNT 9.8 10^3/ul (4.8-10.8)
[2016-05-30 17:13] LABS: ALBUMIN 3.1 g/dl (3.3-4.9); POTASSIUM 3.9 mmol/L (3.5-5.1)
[2016-05-30 17:15] LABS: BILIRUBIN,INDIRECT 0.2 mg/dl (0-1.1); BILIRUBIN,TOTAL 0.2 mg/dl (0.2-1.3); CREATININE 0.59 mg/dl (0.61-1.24)
[2016-05-30 17:16] LABS: ALBUMIN/GLOBULIN RATIO 0.72; TOTAL PROTEIN 7.4 g/dl (6.1-8.1)
[2016-05-30 17:17] LABS: CALCIUM 9.1 mg/dl (8.4-10.2)
--- NOTE | 2016-05-30 17:29 | CONS ---
Date/Time of Note Date/Time of Note DATE: 05/30/16 TIME: 17:20 Consult Date/Type/Reason Admit Date/Time May 25, 2016 at 11:13 Initial Consult Date 05/25/16 Type of Consultation: Rheum Subjective Continues to haveless pain and swelling at joints. No new complainhts except some possible hemorrhoidal bleeding (?). Objective Vital Signs Date Time Temp Pulse Resp B/P Pulse Ox O2 Delivery O2 Flow Rate FiO2 05/30/16 07:37 98.9 102 18 138/90 97 Intake and Output 05/29/16 05/29/16 05/30/16 15:00 23:00 07:00 Intake Total 250 ml 1460 ml 400 ml Output Total 740 ml 600 ml Balance 250 ml 720 ml -200 ml Exam Alert, Oriented, NAD. Skin without rash. HEENT. Conjunctival/sunconjunctival erythema, blood less prominent, but still present PERRL. Neck without lymphadenopathy. Chest clear Heart RRR Abd. Soft Ext. Less erythema left ankle. Minimal tenderness. Knees with effusion but only mild tenderness. Better ROM. Hands without tenderness. Right shoulder without tenderness and good ROM. Other joints without synovitis. Neurol grossly intact. Results/Medications Result Diagram: 05/30/16 1625 05/29/16 0452 Results 24 hrs Laboratory Tests Test 05/30/16 16:25 White Blood Count 9.8 Red Blood Count 4.54 L Hemoglobin 13.1 L Hematocrit 40.9 L Mean Corpuscular Volume 90.1 Mean Corpuscular Hemoglobin 28.9 L Mean Corpuscular Hemoglobin Concent 32.0 Red Cell Distribution Width 13.4 Platelet Count 515 #H Mean Platelet Volume 9.3 Neutrophils % 69.6 Lymphocytes % 14.6 L Monocytes % 9.3 Eosinophils % 4.3 Basophils % 0.5 Nucleated Red Blood Cells % 0.0 Neutrophils # 6.8 Lymphocytes # 1.4 Monocytes # 0.9 Eosinophils # 0.4 Basophils # 0.1 Nucleated Red Blood Cells # 0.0 Medications Current Medications Ceftriaxone Sodium (Rocephin) 50 ml @ 100 mls/hr Q24H IVPB Last administered on 05/29/16t 18:10; Admin Dose 100 MLS/HR; Start 05/26/16 at 18:00 Ondansetron HCl (Zofran Tab) 4 mg Q6H PRN PO NAUSEA AND/OR VOMITING; Start at 17:30 Acetaminophen (Tylenol Tab) 650 mg Q6H PRN PO PAIN LEVEL 1-3 OR FEVER Last administered on 05/28/16 00:11; Admin Dose 650 MG; Start 05/25/16 at 17:30 Acetaminophen (Tylenol Supp) 650 mg Q6H PRN [place] PAIN LEVEL 1-3 OR FEVER; Start 05/25/16 at 17:30 Docusate Sodium (Colace) 100 mg Q12H PRN PO CONSTIPATION Last administered on 16:04; Admin Dose 100 MG; Start 05/25/16 at 17:30 Ciprofloxacin HCl (Ciloxan 0.3% Oph Oint) 1 applic TID BOTH EYES Last administered on 05/30/16 12:20; Admin Dose 1 APPLIC; Start 05/26/16 at 21:00 Nystatin 5 ml 5 ml QID PO Last administered on 05/28/16 22:03; Admin Dose 5 ML ; Start 05/27/16 at 13:00 Vancomycin HCl (Vancocin) 250 ml @ 125 mls/hr Q8H IVPB Last administered on 12:16; Admin Dose 125 MLS/HR; Start 05/28/16 at 03:30 Acetaminophen/ Hydrocodone Bitart ([place] (5/325)) 1 tab Q4H PRN PO MODERATE PAIN LEVEL 4-6 Last administered on 05/28/16 12:47; Admin Dose 1 TAB; Start at 13:30 Morphine Sulfate (morphine) 2 mg Q4H PRN IV PAIN Last administered on 12:19; Admin Dose 2 MG; Start 05/28/16 at 14:00 Naproxen (Naprosyn) 500 mg BID PO Last administered on 05/30/16 08:16; Admin Dose 500 MG; Start 05/28/16 at 14:20; Status Future Hold Pantoprazole (Protonix Tab) 40 mg DAILY@06 PO Last administered on 05/30/16 05 :36; Admin Dose 40 MG; Start 05/30/16 at 06:00 Miscellaneous Information (*Rx Drug Level Order Reminder*) VANCOMYCIN TROUGH AT 1030 ONCE ONCE XX ; Start 05/31/16 at 10:30; Stop 05/31/16 at 10:31 Assessment/Plan Chief Complaint/Hosp Course Ass. 1. Reactive Arthritis with positive HLA-B27, arthritis, uveitis. 2. Arthiritis at knees, ankles, right hand and right shoulder improved. No evidence of infection there, or Gout. 3. Eye inflammation improved. Rec. 1. Continue Naproxen and PPI 2. Will hold off steroids at this point as feeling much better. 3. Will need ophth. eval for possible steroid eye drops, or other. 4. Will likely need TNF medication eventually. Problems: JO ANN DOMINGUEZ MD May 30, 2016 17:28
[2016-05-30] MEDS: CEFTRIAXONE 1 GM/50 ML (PMX) 50 ML IVPB SCH (18:58)
[2016-05-30 19:00] VITALS: BP 156/86; RESP 18
[2016-05-30] MEDS: HYDROCODONE/APAP (5/325) TAB PO PRN (20:23)
[2016-05-30] MEDS: POLYMYXIN/TRIMETHOPRIM 10 ML OPH BOTH EYES SCH (22:51)
--- NOTE | 2016-05-31 02:53 | RADRPT ---
PROCEDURE: CT Abdomen and pelvis without contrast. CLINICAL INDICATION: Abdominal pain. TECHNIQUE: CT scan of the abdomen and pelvis was performed on a multi-detector high-resolution CT scanner. Contiguous axial images were obtained from the lung bases to the ischial tuberosities wit hout intravenous contrast. Coronal and sagittal reformatted images were also obtained. Images were reviewed on the PACS workstation. One or more of the following dose reduction techniques were used: - Automated exposure control. - Adjustment of the mA and/or kV according to patient size. - Use of iterative reconstruction technique. Exam CTD/vol = 6.05 mGy. Total exam DLP = 326.59 mGy-cm. COMPARISON: None. FINDINGS: Evaluation of the lung bases demonstrates mild bibasilar atelectasis. Abdomen: The liver is normal in size. There is no focal mass or dilatation of the biliary tree. T he gallbladder is not distended. The spleen, pancreas and bilateral adrenal glands are within lyudmila l limits. Bilateral kidneys are normal in size with no contour deforming mass identified. There is no radiopaque renal or ureteral calculus identified. There is no hydronephrosis or hydroureter. T here is no retroperitoneal adenopathy. The abdominal aorta is of normal caliber with minimal scatte red atherosclerotic calcifications. There is a small umbilical hernia containing fat. Oral contrast reaches the rectum. There is no najma wel obstruction or free air. A normal appendix is identified. There is no diverticulosis or divert iculitis. There is no ascites. Pelvis: The bladder is unremarkable. The prostate and seminal vesicles are within normal limits. There is no significant pelvic adenopathy or free fluid. Evaluation of the osseous structures demonstrates no suspicious lytic or blastic lesion. IMPRESSION: No acute abnormality identified within the abdomen and pelvis. Small umbilical hernia containing fat. Mild bibasilar atelectasis. Minimal vascular calcifications reflective of atherosclerosis. .Kirk Cruz MD, MD Date Time Electronically viewed and signed by .Kirk Cruz MD, MD on 05/31/2016 02:53 .T/
[2016-05-31] MEDS: morphine 2 MG INJ IV PRN ×4 (03:13→23:18)
[2016-05-31] MEDS: HYDROCODONE/APAP (5/325) TAB PO PRN ×2 (03:13→06:57)
[2016-05-31] MEDS: VANCOMYCIN 1 GM in NS 250 ML IVPB SCH ×3 (03:13→18:52)
[2016-05-31] MEDS: POLYMYXIN/TRIMETHOPRIM 10 ML OPH BOTH EYES SCH ×6 (03:15→20:28)
[2016-05-31] MEDS: PANTOPRAZOLE (EC) 40 MG TAB PO SCH (06:57)
[2016-05-31 07:29] VITALS: BP 127/88; RESP 18
[2016-05-31] MEDS: NYSTATIN SUSP 5 ML CUP PO SCH ×4 (08:44→20:28)
[2016-05-31] MEDS: CIPROFLOXACIN 0.3% 3.5 GM OPH OINT BOTH EYES SCH ×3 (08:44→20:27)
--- NOTE | 2016-05-31 10:30 | CONS ---
Date/Time of Note Date/Time of Note DATE: 05/31/16 TIME: 10:27 Assessment/Plan Assessment/Plan Chief Complaint/Hosp Course Mr.Jagroop Yancey 45-year-old male that is currently hospitalized secondary toLeft lower extremity/ankle cellulitis with elevated white count and fever 2/2 HLA B27 reactive arthritis. Today patient was noted to have bright red blood per rectum. Patient denies previous episode; however, patient does report history of hemorrhoids that have been treated with homeopathic medications for the last 3-4 months. Patient does report using sesame seed oil around and in his rectum his rectum daily for hemorrhoid treatment. Patient also reports unknown homeopathic medication he takes for hemorrhoids as well. Patient at bedside denies abdominal pain, nausea, vomiting. Patient declines any endoscopic evaluation of rectal bleeding. Patient thinks rectal bleeding may be secondary to ingestion of anti-inflammatory medication and possibly coming from his stomach. Advised patient that ultrasound is not sufficient to evaluate for possible ulceration and GI tract. Patient states he understands the risk and he believes his symptoms are secondary to all the medications he is getting as an inpatient. Patient once again declines endoscopic evaluation of rectal bleeding. Problems: Additional Assessment/Plan ectal Bleeding Evaluate GI bleed versus infectious process vs IBD Stool OB, if positive strongly recommend colonoscopy Monitor H&H every 8 hours, transfuse 2 units for hemoglobin less than 7.[address] abdomen: C difficle stool test Colonoscopy if clinically indicated, pt advised of R/B/A to procedure declines providing informed consent to proceed Left lower extremity/ankle cellulitis with elevated white count and fever 2/2 HLA B27 reactive arthritis Management per Primary and rheumatology GI sign off. Consultation available as needed. Further recommendations depend on clinical course Patient seen in collaboration with Dr. Rust Consultation Date/Type/Reason Admit Date/Time May 25, 2016 at 11:13 Initial Consult Date 05/25/16 Type of Consultation: GI 24 HR Interval Summary Free Text/Dictation Patient tolerating diet Hemoglobin stable Patient continues to decline endoscopic evaluation of bright red blood per rectum GI sign off Exam/Review of Systems Vital Signs Vitals Vital Signs Date Time Temp Pulse Resp B/P Pulse Ox O2 Delivery O2 Flow Rate FiO2 05/31/16 07:29 98.6 105 18 127/88 96 Intake and Output 05/30/16 05/30/16 05/31/16 15:00 23:00 07:00 Intake Total 250 ml 1500 ml 970 ml Output Total 1000 ml 1000 ml Balance 250 ml 500 ml -30 ml Exam Constitutional: alert, oriented, well developed Psych: nl mood/affect Head: normocephalic Eyes: EOMI, conjunctivitis, nl lids ENMT: nl external ears & nose, nl lips & teeth, nl nasal mucosa & septum Respiratory: clear to auscultation, normal air movement Cardiovascular: regular rate and rhythm Gastrointestinal: soft, nontender Musculoskeletal: nl extremities to inspection Neurological: INTELLIGENCE S[employer]IOR [employer]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9 Eosinophils # 0.4 Basophils # 0.1 Nucleated Red Blood Cells # 0.0 Sodium Level 133 L Potassium Level 3.9 Chloride Level 98 Carbon Dioxide Level 27 Anion Gap 12 Blood Urea Nitrogen 8 Creatinine 0.59 L Glucose Level 275 #H Calcium Level 9.1 Total Bilirubin 0.2 Direct Bilirubin 0.00 Indirect Bilirubin 0.2 Aspartate Amino Transf (AST/SGOT) 49 H Alanine Aminotransferase (ALT/SGPT) 47 Alkaline Phosphatase 205 H Total Protein 7.4 Albumin 3.1 L Globulin 4.30 H Albumin/Globulin Ratio 0.72 Medications Medications Current Medications Ceftriaxone Sodium (Rocephin) 50 ml @ 100 mls/hr Q24H IVPB Last administered on 05/30/16t 18:58; Admin Dose 100 MLS/HR; Start 05/26/16 at 18:00 Ondansetron HCl (Zofran Tab) 4 mg Q6H PRN PO NAUSEA AND/OR VOMITING; Start at 17:30 Acetaminophen (Tylenol Tab) 650 mg Q6H PRN PO PAIN LEVEL 1-3 OR FEVER Last administered on 05/28/16 00:11; Admin Dose 650 MG; Start 05/25/16 at 17:30 Acetaminophen (Tylenol Supp) 650 mg Q6H PRN [place] PAIN LEVEL 1-3 OR FEVER; Start 05/25/16 at 17:30 Docusate Sodium (Colace) 100 mg Q12H PRN PO CONSTIPATION Last administered on 16:04; Admin Dose 100 MG; Start 05/25/16 at 17:30 Ciprofloxacin HCl (Ciloxan 0.3% Oph Oint) 1 applic TID BOTH EYES Last administered on 05/31/16 08:44; Admin Dose 1 APPLIC; Start 05/26/16 at 21:00 Nystatin 5 ml 5 ml QID PO Last administered on 05/31/16 08:44; Admin Dose 5 ML ; Start 05/27/16 at 13:00 Vancomycin HCl (Vancocin) 250 ml @ 125 mls/hr Q8H IVPB Last administered on 03:13; Admin Dose 125 MLS/HR; Start 05/28/16 at 03:30 Acetaminophen/ Hydrocodone Bitart ([place] (5/325)) 1 tab Q4H PRN PO MODERATE PAIN LEVEL 4-6 Last administered on 05/31/16 06:57; Admin Dose 1 TAB; Start at 13:30 Morphine Sulfate (morphine) 2 mg Q4H PRN IV PAIN Last administered on 03:13; Admin Dose 2 MG; Start 05/28/16 at 14:00 Naproxen (Naprosyn) 500 mg BID PO Last administered on 05/30/16 08:16; Admin Dose 500 MG; Start 05/28/16 at 14:20; Status Future Hold Pantoprazole (Protonix Tab) 40 mg DAILY@06 PO Last administered on 05/31/16 06 :57; Admin Dose 40 MG; Start 05/30/16 at 06:00 Miscellaneous Information (*Rx Drug Level Order Reminder*) VANCOMYCIN TROUGH AT 1030 ONCE ONCE XX ; Start 05/31/16 at 10:30; Stop 05/31/16 at 10:31 WILLIAM NOWAK May 31, 2016 10:30
--- NOTE | 2016-05-31 11:29 | PN ---
Date/Time of Note Date/Time of Note DATE: 05/31/16 TIME: 11:27 Assessment/Plan VTE Prophylaxis VTE Prophylaxis Intervention: SCD's Lines/Catheters IV Catheter Type (from Nrs): Sal[facility] Lock Urinary Cath still in place: No Assessment/Plan Assessment/Plan Left lower extremity/ankle cellulitis with elevated white count and fever 2/2 HLA B27 reactive arthritis acute transaminitis with elevated total bilirubin Blood culture positive with staphylococcus Iritis Bright red blood per rectum concerned about Lower GI bleeding s/p GI consult yesterday, recommended to get colonoscopy plan: Stool For Occult blood positive, S/p GI consult s/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 by Child Care Specialist - [place] [id number]- reactive, fluid cx neative, Discussed with ID- they said it is ok to start PO steroids, on protonix for GI prophylaxis - currently naproxen has been stopped due to Occult blood positive , will wait Until GI work up finished before considering PO steroids and Naproxen US abdomen- negative for liver cirrhosis IV abx as per ID, Blood cx grew staphylococcus- follow up blood cx x [address] Consult Dr.Darakjian rothuted pt, no surgical intervention needed will follow up Subjective 24 Hr Interval Summary Free Text/Dictation pt stool for occult blood positive s/p GI consult, no Hb today to review Exam/Review of Systems Vital Signs Vitals Vital Signs Date Time Temp Pulse Resp B/P Pulse Ox O2 Delivery O2 Flow Rate FiO2 05/31/16 07:29 98.6 105 18 127/88 96 Intake and Output 05/30/16 05/30/16 05/31/16 15:00 23:00 07:00 Intake Total 250 ml 1500 ml 970 ml Output Total 1000 ml 1000 ml Balance 250 ml 500 ml -30 ml Exam GENERAL APPEARANCE: The patient is lying in bed comfortably without any distress. He is awake, alert, oriented, is able to answer my questions properly. RESPIRATORY: Effort is normal. Clear to auscultation bilaterally. CARDIOVASCULAR: Normal S1, S2. Regular rhythm and rate. No murmur, no bruits , no edema. Peripheral pulses, radial pulses palpable. Cap refill is normal. CHEST: Normal expansion of thorax during inspiration. GASTROINTESTINAL: Abdomen is soft, nontender, not distended. Bowel sounds present. No guarding, no rebound. NEUROLOGIC: Cranial nerves II through XII grossly intact Results Result Diagram: 05/30/16 1625 05/30/16 1625 Results 24 hrs Laboratory Tests Test 05/30/16 13:45 05/30/16 16:25 Stool Occult Blood POSITIVE White Blood Count 9.8 Red Blood Count 4.54 L Hemoglobin 13.1 L Hematocrit 40.9 L Mean Corpuscular Volume 90.1 Mean Corpuscular Hemoglobin 28.9 L Mean Corpuscular Hemoglobin Concent 32.0 Red Cell Distribution Width 13.4 Platelet Count 515 #H Mean Platelet Volume 9.3 Neutrophils % 69.6 Lymphocytes % 14.6 L Monocytes % 9.3 Eosinophils % 4.3 Basophils % 0.5 Nucleated Red Blood Cells % 0.0 Neutrophils # 6.8 Lymphocytes # 1.4 Monocytes # 0.9 Eosinophils # 0.4 Basophils # 0.1 Nucleated Red Blood Cells # 0.0 Sodium Level 133 L Potassium Level 3.9 Chloride Level 98 Carbon Dioxide Level 27 Anion Gap 12 Blood Urea Nitrogen 8 Creatinine 0.59 L Glucose Level 275 #H Calcium Level 9.1 Total Bilirubin 0.2 Direct Bilirubin 0.00 Indirect Bilirubin 0.2 Aspartate Amino Transf (AST/SGOT) 49 H Alanine Aminotransferase (ALT/SGPT) 47 Alkaline Phosphatase 205 H Total Protein 7.4 Albumin 3.1 L Globulin 4.30 H Albumin/Globulin Ratio 0.72 Medications Medications Current Medications Ceftriaxone Sodium (Rocephin) 50 ml @ 100 mls/hr Q24H IVPB Last administered on 05/30/16 18:58; Admin Dose 100 MLS/HR; Start 05/26/16 at 18:00 Ondansetron HCl (Zofran Tab) 4 mg Q6H PRN PO NAUSEA AND/OR VOMITING; Start at 17:30 Acetaminophen (Tylenol Tab) 650 mg Q6H PRN PO PAIN LEVEL 1-3 OR FEVER Last administered on 05/28/16 00:11; Admin Dose 650 MG; Start 05/25/16 at 17:30 Acetaminophen (Tylenol Supp) 650 mg Q6H PRN [place] PAIN LEVEL 1-3 OR FEVER; Start 05/25/16 at 17:30 Docusate Sodium (Colace) 100 mg Q12H PRN PO CONSTIPATION Last administered on 16:04; Admin Dose 100 MG; Start 05/25/16 at 17:30 Ciprofloxacin HCl (Ciloxan 0.3% Oph Oint) 1 applic TID BOTH EYES Last administered on 05/31/16 08:44; Admin Dose 1 APPLIC; Start 05/26/16 at 21:00 Nystatin 5 ml 5 ml QID PO Last administered on 05/31/16 08:44; Admin Dose 5 ML ; Start 05/27/16 at 13:00 Vancomycin HCl (Vancocin) 250 ml @ 125 mls/hr Q8H IVPB Last administered on 03:13; Admin Dose 125 MLS/HR; Start 05/28/16 at 03:30 Acetaminophen/ Hydrocodone Bitart ([place] (5/325)) 1 tab Q4H PRN PO MODERATE PAIN LEVEL 4-6 Last administered on 05/31/16 06:57; Admin Dose 1 TAB; Start at 13:30 Morphine Sulfate (morphine) 2 mg Q4H PRN IV PAIN Last administered on 03:13; Admin Dose 2 MG; Start 05/28/16 at 14:00 Naproxen (Naprosyn) 500 mg BID PO Last administered on 05/30/16 08:16; Admin Dose 500 MG; Start 05/28/16 at 14:20; Status Future Hold Pantoprazole (Protonix Tab) 40 mg DAILY@06 PO Last administered on 05/31/16 06 :57; Admin Dose 40 MG; Start 05/30/16 at 06:00 RADHAMES JUNG MD May 31, 2016 11:29
[2016-05-31] MEDS: DOCUSATE SODIUM 100 MG CAP PO PRN (11:54)
[2016-05-31] MEDS: CEFTRIAXONE 1 GM/50 ML (PMX) 50 ML IVPB SCH (17:18)
[2016-05-31 19:30] VITALS: BP 156/89; RESP 20
[2016-05-31 20:20] VITALS: BP 146/75; PULSE 91
--- NOTE | 2016-05-31 20:38 | CONS ---
Date/Time of Note Date/Time of Note DATE: 05/31/16 TIME: 20:35 Assessment/Plan Assessment/Plan Chief Complaint/Hosp Course ID PROGRESS NOTE CURRENT ABX=> Ceftriaxone, Vanco IV, Cipro OPTH-GTT + Polytrim OPTH-GTT 24H INTERVAL SUMMARY * Awake, still has pain in joints=> Polytrim added eye GTT to cover Staph/Strep that may be resistant to current Cipro. * s/p 05/28/16 Knee Synovial Fluid Aspirate w/pyuria on fluid analysis Microbiology GRAM STAIN Final POLYMORPH. LEUKOCYTE 2+ . NO ORGANISM SEEN BODY FLUID CULTURE Preliminary No growth after 2 days * DIAGNOSTICS: MRI of the ankle revealed a large tibiotalar joint effusion with mild tenosynovitis, no acute fracture or dislocation. * EYE CULTURE Final Organism 1 COAGULASE NEGATIVE STAPH QUANTITY RARE COAG NEG M.I.C. RX --------- --- CEFAZOLIN R CIPROFLOXACIN >=8 R CLINDAMYCIN <=0.25 S DOXYCYCLINE R ERYTHROMYCIN >=8 R LEVOFLOXACIN >=8 R OXACILLIN >=4 R PENICILLIN-G >=0.5 R RIFAMPIN <=0.5 S VANCOMYCIN 1 S TRIMETHOPRIM/SULFAMETHOXAZOLE 160 R PHYSICAL EXAMINATION: GENERAL:VSS, NAD HEENT: Bilateral conjunctivitis w/erythema no crust, no current discharte NECK: Supple, trachea midline. CHEST: Rise symmetrical, without dyspnea on observation HEART: Pulse RRR ABDOMEN: soft EXTREMITIES: Warm Left foot/ankle erythema and edema persist, B knee swelling with fluctuance ID ASSESSMENT 45 yo M admit with: 1. s/p Sepsis with fevers and leukocytosis=> resolving. * Gram-positive cocci bacteremia=>consistent w/skin contaminant 2. Reactive Arthritis (Justen's) with positive HLA-B27, arthritis, uveitis. * HIV Screen(-) * RPR (-) 3. B knee effusion=> s/p aspiration w/pyuria on synovial fluid analysis * GRAM STAIN Final POLYMORPH. LEUKOCYTE 2+ . NO ORGANISM SEEN BODY FLUID CULTURE No growth 4. Left foot ? Erythema ?Cellulitis 5. Acute bilateral conjunctivitis=> Polytrim added to cover concern resistant opportunistic staph * EYE CULTURE Final Organism 1 COAGULASE NEGATIVE STAPH QUANTITY RARE COAG NEG M.I.C. RX --------- --- CEFAZOLIN R CIPROFLOXACIN >=8 R CLINDAMYCIN <=0.25 S DOXYCYCLINE R ERYTHROMYCIN >=8 R LEVOFLOXACIN >=8 R OXACILLIN >=4 R PENICILLIN-G >=0.5 R RIFAMPIN <=0.5 S VANCOMYCIN 1 S TRIMETHOPRIM/SULFAMETHOXAZOLE 160 R 6. Oral thrush=> on Nystatin 7. FOBT (+) MRSA Nares INVASIVES: PIV ABX ALLERGY: KNDA CURRENT ABX:=> Ceftriaxone, Vanco IV ID RECOMMENDATIONS 1. Continue current ABX * Added adjunctive Polytrim Eye gtt to cover concern resistant Staph and continue Cipro * Ophthalmology evaluation pending 2. Observe over the weekend on ABX -> Reassess by ID team next week 3. Appreciate Rheumatology notes: Holding off on steroids due to improvement in status . . Problems: Consultation Date/Type/Reason Admit Date/Time May 25, 2016 at 11:13 Initial Consult Date 05/25/16 Type of Consultation: ID Exam/Review of Systems Vital Signs Vitals Vital Signs Date Time Temp Pulse Resp B/P Pulse Ox O2 Delivery O2 Flow Rate FiO2 05/31/16 19:30 99.7 114 20 156/89 95 Intake and Output 05/30/16 05/30/16 05/31/16 15:00 23:00 07:00 Intake Total 250 ml 1500 ml 970 ml Output Total 1000 ml 1000 ml Balance 250 ml 500 ml -30 ml Results Result Diagram: 05/30/16 1625 05/30/16 1625 Results 24 hrs Laboratory Tests Test 05/31/16 10:57 Vancomycin Level Trough 15.2 Medications Medications Current Medications Ceftriaxone Sodium (Rocephin) 50 ml @ 100 mls/hr Q24H IVPB Last administered on 05/31/16t 17:18; Admin Dose 100 MLS/HR; Start 05/26/16 at 18:00 Ondansetron HCl (Zofran Tab) 4 mg Q6H PRN PO NAUSEA AND/OR VOMITING; Start at 17:30 Acetaminophen (Tylenol Tab) 650 mg Q6H PRN PO PAIN LEVEL 1-3 OR FEVER Last administered on 05/28/16 00:11; Admin Dose 650 MG; Start 05/25/16 at 17:30 Acetaminophen (Tylenol Supp) 650 mg Q6H PRN [place] PAIN LEVEL 1-3 OR FEVER; Start 05/25/16 at 17:30 Docusate Sodium (Colace) 100 mg Q12H PRN PO CONSTIPATION Last administered on 11:54; Admin Dose 100 MG; Start 05/25/16 at 17:30 Ciprofloxacin HCl (Ciloxan 0.3% Oph Oint) 1 applic TID BOTH EYES Last administered on 05/31/16 20:27; Admin Dose 1 APPLIC; Start 05/26/16 at 21:00 Nystatin 5 ml 5 ml QID PO Last administered on 05/31/16 20:28; Admin Dose 5 ML ; Start 05/27/16 at 13:00 Vancomycin HCl (Vancocin) 250 ml @ 125 mls/hr Q8H IVPB Last administered on 18:52; Admin Dose 125 MLS/HR; Start 05/28/16 at 03:30 Acetaminophen/ Hydrocodone Bitart ([place] (5/325)) 1 tab Q4H PRN PO MODERATE PAIN LEVEL 4-6 Last administered on 05/31/16 06:57; Admin Dose 1 TAB; Start at 13:30 Morphine Sulfate (morphine) 2 mg Q4H PRN IV PAIN Last administered on 18:53; Admin Dose 2 MG; Start 05/28/16 at 14:00 Naproxen (Naprosyn) 500 mg BID PO Last administered on 05/30/16 08:16; Admin Dose 500 MG; Start 05/28/16 at 14:20; Status Future Hold Pantoprazole (Protonix Tab) 40 mg DAILY@06 PO Last administered on 05/31/16 06 :57; Admin Dose 40 MG; Start 05/30/16 at 06:00 MERARI TOWNSEND NP May 31, 2016 20:38
[2016-06-01] MEDS: POLYMYXIN/TRIMETHOPRIM 10 ML OPH BOTH EYES SCH ×6 (01:00→21:16)
[2016-06-01] MEDS: VANCOMYCIN 1 GM in NS 250 ML IVPB SCH (04:11)
[2016-06-01] MEDS: HYDROCODONE/APAP (5/325) TAB PO PRN ×5 (04:17→21:22)
[2016-06-01] MEDS: PANTOPRAZOLE (EC) 40 MG TAB PO SCH (05:35)
[2016-06-01 05:38] LABS: ADD SCAN DIFF NO
[2016-06-01 05:47] LABS: ABNORMAL IP MESSAGE 1; BASOPHIL # 0.1 10^3/ul (0.0-0.1); BASOPHILS % 0.8 % (0.0-2.0); EOSINOPHILS # 0.5 10^3/ul (0.0-0.5); EOSINOPHILS % 3.6 % (0.0-7.0); HEMATOCRIT 40.6 % (42.0-52.0); HEMOGLOBIN 13.3 g/dl (14.0-18.0); LYMPHOCYTES # 2.1 10^3/ul (0.8-2.9); LYMPHOCYTES % 16.3 % (15.0-51.0); MEAN CORPUSCULAR HEMOGLOBIN 29.2 pg (29.0-33.0); MEAN CORPUSCULAR HGB CONC 32.8 g/dl (32.0-37.0); MEAN PLATELET VOLUME 8.9 fl (7.4-10.4); MONOCYTE # 1.9 10^3/ul (0.3-0.9); MONOCYTES % 14.4 % (0.0-11.0); NEUTROPHIL # 8.1 10^3/ul (1.6-7.5); NEUTROPHILS % 62.2 % (39.0-77.0); PLATELET COUNT 621 10^3/UL (140-415); RED BLOOD COUNT 4.56 10^6/ul (4.70-6.10); RED CELL DISTRIBUTION WIDTH 12.8 % (11.5-14.5)
[2016-06-01 06:12] LABS: INR 1.15; PARTIAL THROMBOPLASTIN TIME 37.3 Sec (25.0-35.0); PROTIME 14.7 Sec (12.2-14.2); PT RATIO 1.1
[2016-06-01 06:31] LABS: ALBUMIN 3.2 g/dl (3.3-4.9); POTASSIUM 3.7 mmol/L (3.5-5.1)
[2016-06-01 06:33] LABS: CREATININE 0.7 mg/dl (0.61-1.24)
[2016-06-01 06:34] LABS: ALBUMIN/GLOBULIN RATIO 0.68; BILIRUBIN,INDIRECT 0.4 mg/dl (0-1.1); BILIRUBIN,TOTAL 0.4 mg/dl (0.2-1.3); CALCIUM 9.7 mg/dl (8.4-10.2); TOTAL PROTEIN 7.9 g/dl (6.1-8.1)
[2016-06-01 07:31] VITALS: BP 139/88; RESP 18
[2016-06-01] MEDS ORDERED: predniSONE 20 MG TAB PO ONE (08:00)
--- NOTE | 2016-06-01 08:01 | CONS ---
Date/Time of Note Date/Time of Note DATE: 06/01/16 TIME: 07:57 Consult Date/Type/Reason Admit Date/Time May 25, 2016 at 11:13 Initial Consult Date 05/25/16 Type of Consultation: Rheum Subjective Overall feels better but still with pain on weight bearing. Not walking yet. Objective Vital Signs Date Time Temp Pulse Resp B/P Pulse Ox O2 Delivery O2 Flow Rate FiO2 06/01/16 07:31 98.1 97 18 139/88 96 Intake and Output 05/31/16 05/31/16 06/01/16 15:00 23:00 07:00 Intake Total 1340 ml 610 ml Output Total 500 ml 1400 ml Balance 840 ml -790 ml Exam Alert, Oriented, NAD. Skin without rash. HEENT. Conjunctival/subconjunctival erythema, somewhat improved but still present PERRL. Neck without lymphadenopathy. Chest clear Heart RRR Abd. Soft Ext. Less erythema left ankle. Minimal tenderness. Knees with less effusion, mild tenderness. Better ROM. Hands without tenderness. Right shoulder without tenderness and good ROM. Other joints without synovitis. Neurol grossly intact. Results/Medications Result Diagram: 06/01/16 0458 06/01/16 0458 Results 24 hrs Laboratory Tests Test 05/31/16 10:57 06/01/16 04:58 Vancomycin Level Trough 15.2 White Blood Count 13.0 #H Red Blood Count 4.56 L Hemoglobin 13.3 L Hematocrit 40.6 L Mean Corpuscular Volume 89.0 Mean Corpuscular Hemoglobin 29.2 Mean Corpuscular Hemoglobin Concent 32.8 Red Cell Distribution Width 12.8 Platelet Count 621 #H Mean Platelet Volume 8.9 Neutrophils % 62.2 Lymphocytes % 16.3 Monocytes % 14.4 H Eosinophils % 3.6 Basophils % 0.8 Nucleated Red Blood Cells % 0.0 Neutrophils # 8.1 H Lymphocytes # 2.1 Monocytes # 1.9 H Eosinophils # 0.5 Basophils # 0.1 Nucleated Red Blood Cells # 0.0 Prothrombin Time 14.7 H Prothrombin Time Ratio 1.1 INR International Normalized Ratio 1.15 Activated Partial Thromboplast Time 37.3 H Sodium Level 132 L Potassium Level 3.7 Chloride Level 95 L Carbon Dioxide Level 27 Anion Gap 14 Blood Urea Nitrogen 7 Creatinine 0.70 Glucose Level 160 # Calcium Level 9.7 Total Bilirubin 0.4 Direct Bilirubin 0.00 Indirect Bilirubin 0.4 Aspartate Amino Transf (AST/SGOT) 42 Alanine Aminotransferase (ALT/SGPT) 47 Alkaline Phosphatase 236 H Total Protein 7.9 Albumin 3.2 L Globulin 4.70 H Albumin/Globulin Ratio 0.68 Medications Current Medications Ceftriaxone Sodium (Rocephin) 50 ml @ 100 mls/hr Q24H IVPB Last administered on 05/31/16 17:18; Admin Dose 100 MLS/HR; Start 05/26/16 at 18:00 Ondansetron HCl (Zofran Tab) 4 mg Q6H PRN PO NAUSEA AND/OR VOMITING; Start at 17:30 Acetaminophen (Tylenol Tab) 650 mg Q6H PRN PO PAIN LEVEL 1-3 OR FEVER Last administered on 05/28/16 00:11; Admin Dose 650 MG; Start 05/25/16 at 17:30 Acetaminophen (Tylenol Supp) 650 mg Q6H PRN [place] PAIN LEVEL 1-3 OR FEVER; Start 05/25/16 at 17:30 Docusate Sodium (Colace) 100 mg Q12H PRN PO CONSTIPATION Last administered on 11:54; Admin Dose 100 MG; Start 05/25/16 at 17:30 Ciprofloxacin HCl (Ciloxan 0.3% Oph Oint) 1 applic TID BOTH EYES Last administered on 05/31/16 20:27; Admin Dose 1 APPLIC; Start 05/26/16 at 21:00 Nystatin 5 ml 5 ml QID PO Last administered on 05/31/16 20:28; Admin Dose 5 ML ; Start 05/27/16 at 13:00 Vancomycin HCl (Vancocin) 250 ml @ 125 mls/hr Q8H IVPB Last administered on 04:11; Admin Dose 125 MLS/HR; Start 05/28/16 at 03:30 Acetaminophen/ Hydrocodone Bitart ([place] (5/325)) 1 tab Q4H PRN PO MODERATE PAIN LEVEL 4-6 Last administered on 06/01/16 04:17; Admin Dose 1 TAB; Start at 13:30 Morphine Sulfate (morphine) 2 mg Q4H PRN IV PAIN Last administered on 23:18; Admin Dose 2 MG; Start 05/28/16 at 14:00 Naproxen (Naprosyn) 500 mg BID PO Last administered on 05/30/16 08:16; Admin Dose 500 MG; Start 05/28/16 at 14:20; Status Future Hold Pantoprazole (Protonix Tab) 40 mg DAILY@06 PO Last administered on 06/01/16 05 :35; Admin Dose 40 MG; Start 05/30/16 at 06:00 Assessment/Plan Chief Complaint/Hosp Course Ass. 1. Reactive Arthritis with positive HLA-B27, arthritis, uveitis. 2. Arthiritis at knees, ankles, right hand and right shoulder improved. No evidence of infection there, or Gout. 3. Eye inflammation improved. Rec. 1. Will add 20mg Prednisone today to see if weight bearing improves, and possibly eye inflammation as well. 2. Continue Naproxen and PPI 3. Will need ophthalmology eval for possible steroid eye drops, or other. 4. Will likely need TNF medication eventually. Problems: JO ANN DOMINGUEZ MD Jun 01, 2016 08:01
[2016-06-01] MEDS: CIPROFLOXACIN 0.3% 3.5 GM OPH OINT BOTH EYES SCH ×3 (08:43→21:45)
[2016-06-01] MEDS: NYSTATIN SUSP 5 ML CUP PO SCH ×4 (08:43→21:00)
--- NOTE | 2016-06-01 09:08 | PN ---
Date/Time of Note Date/Time of Note DATE: 06/01/16 TIME: 08:59 Assessment/Plan VTE Prophylaxis VTE Prophylaxis Intervention: SCD's Lines/Catheters IV [facility]ter [facility] (from [facility] Urinary Cath still in place: No Assessment/Plan Chief Complaint/Hosp Course Assessment/Plan 45M with: 1. 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 s/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 by Cad Administrator - fluid cell count grew 58600- reactive, fluid cx negative. Orthoepdic Consult evaluated pt, no surgical intervention needed. - Prednisone 20 mg x 1 today, monitor weight bearing status. - per Rheum, consider ophthalmology eval for possible steroid eye drops, or other. - continue abx drops for eyes. - continue IV abx, f/u ID rec's. - per rheum, may need TNF meds as well 2. acute transaminitis with elevated total bilirubin - trending down now. US abdomen- negative for liver cirrhosis - monitor 3. Blood culture positive with staphylococcus - continue IV abx, f/u ID rec's 4. Iritis - see # 1 5. Bright red blood per rectum - concerned about Lower GI bleeding s/p GI consult yesterday, 2 days ago. Stool For Occult blood is positive, but H/H stable - monitor CBC, f/u GI rec's regarding possible colonscopy. 6. GI ppx - PPI Problems: Subjective 24 Hr Interval Summary Free Text/Dictation Pt still with some joint pain, slightly improved, seen by rheum team this AM. Exam/Review of Systems Vital Signs Vitals Vital Signs Date Time Temp Pulse Resp B/P Pulse Ox O2 Delivery O2 Flow Rate FiO2 06/01/16 07:31 98.1 97 18 139/88 96 Intake and Output 05/31/16 05/31/16 06/01/16 15:00 23:00 07:00 Intake Total 1340 ml 610 ml Output Total 500 ml 1400 ml Balance 840 ml -790 ml Exam GENERAL APPEARANCE: lying in bed comfortably without any distress; awake, alert , oriented, is able to answer questions HEENT: PERRL/EOMI. Conjunctival/subconjunctival erythema somewhat improved but still present RESPIRATORY: Effort is normal. Clear to auscultation bilaterally. CARDIOVASCULAR: Normal S1, S2. Regular rhythm and rate. No murmur, no bruits , no edema. Peripheral pulses, radial pulses palpable. Cap refill is normal. CHEST: Normal expansion of thorax during inspiration. GASTROINTESTINAL: Abdomen is soft, nontender, not distended. Bowel sounds present. No guarding, no rebound. M/S: Ext. Less erythema left ankle. Minimal tenderness. Knees with less effusion, mild tenderness. Better ROM. NEUROLOGIC: Cranial nerves II through XII grossly intact Results Result Diagram: 06/01/16 0458 06/01/16 0458 Results 24 hrs Laboratory Tests Test 05/31/16 10:57 06/01/16 04:58 Vancomycin Level Trough 15.2 White Blood Count 13.0 #H Red Blood Count 4.56 L Hemoglobin 13.3 L Hematocrit 40.6 L Mean Corpuscular Volume 89.0 Mean Corpuscular Hemoglobin 29.2 Mean Corpuscular Hemoglobin Concent 32.8 Red Cell Distribution Width 12.8 Platelet Count 621 #H Mean Platelet Volume 8.9 Neutrophils % 62.2 Lymphocytes % 16.3 Monocytes % 14.4 H Eosinophils % 3.6 Basophils % 0.8 Nucleated Red Blood Cells % 0.0 Neutrophils # 8.1 H Lymphocytes # 2.1 Monocytes # 1.9 H Eosinophils # 0.5 Basophils # 0.1 Nucleated Red Blood Cells # 0.0 Prothrombin Time 14.7 H Prothrombin Time Ratio 1.1 INR International Normalized Ratio 1.15 Activated Partial Thromboplast Time 37.3 H Sodium Level 132 L Potassium Level 3.7 Chloride Level 95 L Carbon Dioxide Level 27 Anion Gap 14 Blood Urea Nitrogen 7 Creatinine 0.70 Glucose Level 160 # Calcium Level 9.7 Total Bilirubin 0.4 Direct Bilirubin 0.00 Indirect Bilirubin 0.4 Aspartate Amino Transf (AST/SGOT) 42 Alanine Aminotransferase (ALT/SGPT) 47 Alkaline Phosphatase 236 H Total Protein 7.9 Albumin 3.2 L Globulin 4.70 H Albumin/Globulin Ratio 0.68 Medications Medications Current Medications Ceftriaxone Sodium (Rocephin) 50 ml @ 100 mls/hr Q24H IVPB Last administered on 05/31/16t 17:18; Admin Dose 100 MLS/HR; Start 05/26/16 at 18:00 Ondansetron HCl (Zofran Tab) 4 mg Q6H PRN PO NAUSEA AND/OR VOMITING; Start at 17:30 Acetaminophen (Tylenol Tab) 650 mg Q6H PRN PO PAIN LEVEL 1-3 OR FEVER Last administered on 05/28/16 00:11; Admin Dose 650 MG; Start 05/25/16 at 17:30 Acetaminophen (Tylenol Supp) 650 mg Q6H PRN [place] PAIN LEVEL 1-3 OR FEVER; Start 05/25/16 at 17:30 Docusate Sodium (Colace) 100 mg Q12H PRN PO CONSTIPATION Last administered on 11:54; Admin Dose 100 MG; Start 05/25/16 at 17:30 Ciprofloxacin HCl (Ciloxan 0.3% Oph Oint) 1 applic TID BOTH EYES Last administered on 06/01/16 08:43; Admin Dose 1 APPLIC; Start 05/26/16 at 21:00 Nystatin 5 ml 5 ml QID PO Last administered on 06/01/16 08:43; Admin Dose 5 ML ; Start 05/27/16 at 13:00 Vancomycin HCl (Vancocin) 250 ml @ 125 mls/hr Q8H IVPB Last administered on 04:11; Admin Dose 125 MLS/HR; Start 05/28/16 at 03:30 Acetaminophen/ Hydrocodone Bitart ([place] (5/325)) 1 tab Q4H PRN PO MODERATE PAIN LEVEL 4-6 Last administered on 06/01/16 08:46; Admin Dose 1 TAB; Start at 13:30 Morphine Sulfate (morphine) 2 mg Q4H PRN IV PAIN Last administered on 23:18; Admin Dose 2 MG; Start 05/28/16 at 14:00 Naproxen (Naprosyn) 500 mg BID PO Last administered on 05/30/16 08:16; Admin Dose 500 MG; Start 05/28/16 at 14:20; Status Future Hold Pantoprazole (Protonix Tab) 40 mg DAILY@06 PO Last administered on 06/01/16 05 :35; Admin Dose 40 MG; Start 05/30/16 at 06:00 DARRICK SAPP 27, 2017 09:08
--- NOTE | 2016-06-01 12:05 | CONS ---
Date/Time of Note Date/Time of Note DATE: 06/01/16 TIME: 12:03 Assessment/Plan Assessment/Plan Chief Complaint/Hosp Course SUBJECTIVE: No acute events, alert, feels better, no fevers, nad ANTIMICROBIALS: The patient is on: 1. Vanco 2. Rocephin. PHYSICAL EXAMINATION: GENERAL: This is a well-nourished, well-developed, middle-aged man who is alert, in no distress. HEENT: Head atraumatic, normocephalic. Sclerae anicteric. The patient has scleral erythema with some purulence on his eyelashes. Buccal mucosa pink with white thrush on his tongue. NECK: Supple. No cervical lymphadenopathy. CHEST: Rise symmetrical. Breath sounds clear. HEART: S1, S2. ABDOMEN: Soft. Bowel sounds present. EXTREMITIES: Left foot erythema and edema persist, B knee swelling with fluctuance ASSESSMENT: 1. Sepsis with fevers and leukocytosis==> resolving. 2. 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 3. B knee effusion==> s/p aspiration===> cx neg. 4. Acute bilateral conjunctivitis==> improving on Cipro/Polytrim gtts. 5. Gram-positive cocci bacteremia==> cw contaminant. 6. Oral thrush==> resolving PLAN: Improving, continue present care, abx, f/u rheumatology/podiatry rec-s noted [facility] staff Problems: Consultation Date/Type/Reason Admit Date/Time May 25, 2016 at 11:13 Initial Consult Date 05/25/16 Type of Consultation: ID Exam/Review of Systems Vital Signs Vitals Vital Signs Date Time Temp Pulse Resp B/P Pulse Ox O2 Delivery O2 Flow Rate FiO2 06/01/16 07:31 98.1 97 18 139/88 96 Intake and Output 05/31/16 05/31/16 06/01/16 15:00 23:00 07:00 Intake Total 1340 ml 610 ml Output Total 500 ml 1400 ml Balance 840 ml -790 ml Results Result Diagram: 06/01/16 0458 06/01/16 0458 Results 24 hrs Laboratory Tests Test 06/01/16 04:58 White Blood Count 13.0 #H Red Blood Count 4.56 L Hemoglobin 13.3 L Hematocrit 40.6 L Mean Corpuscular Volume 89.0 Mean Corpuscular Hemoglobin 29.2 Mean Corpuscular Hemoglobin Concent 32.8 Red Cell Distribution Width 12.8 Platelet Count 621 #H Mean Platelet Volume 8.9 Neutrophils % 62.2 Lymphocytes % 16.3 Monocytes % 14.4 H Eosinophils % 3.6 Basophils % 0.8 Nucleated Red Blood Cells % 0.0 Neutrophils # 8.1 H Lymphocytes # 2.1 Monocytes # 1.9 H Eosinophils # 0.5 Basophils # 0.1 Nucleated Red Blood Cells # 0.0 Prothrombin Time 14.7 H Prothrombin Time Ratio 1.1 INR International Normalized Ratio 1.15 Activated Partial Thromboplast Time 37.3 H Sodium Level 132 L Potassium Level 3.7 Chloride Level 95 L Carbon Dioxide Level 27 Anion Gap 14 Blood Urea Nitrogen 7 Creatinine 0.70 Glucose Level 160 # Calcium Level 9.7 Total Bilirubin 0.4 Direct Bilirubin 0.00 Indirect Bilirubin 0.4 Aspartate Amino Transf (AST/SGOT) 42 Alanine Aminotransferase (ALT/SGPT) 47 Alkaline Phosphatase 236 H Total Protein 7.9 Albumin 3.2 L Globulin 4.70 H Albumin/Globulin Ratio 0.68 Medications Medications Current Medications Ceftriaxone Sodium (Rocephin) 50 ml @ 100 mls/hr Q24H IVPB Last administered on 05/31/16 17:18; Admin Dose 100 MLS/HR; Start 05/26/16 at 18:00 Ondansetron HCl (Zofran Tab) 4 mg Q6H PRN PO NAUSEA AND/OR VOMITING; Start at 17:30 Acetaminophen (Tylenol Tab) 650 mg Q6H PRN PO PAIN LEVEL 1-3 OR FEVER Last administered on 05/28/16 00:11; Admin Dose 650 MG; Start 05/25/16 at 17:30 Acetaminophen (Tylenol Supp) 650 mg Q6H PRN [place] PAIN LEVEL 1-3 OR FEVER; Start 05/25/16 at 17:30 Docusate Sodium (Colace) 100 mg Q12H PRN PO CONSTIPATION Last administered on 11:54; Admin Dose 100 MG; Start 05/25/16 at 17:30 Ciprofloxacin HCl (Ciloxan 0.3% Oph Oint) 1 applic TID BOTH EYES Last administered on 06/01/16 08:43; Admin Dose 1 APPLIC; Start 05/26/16 at 21:00 Nystatin (Nystatin Susp) 5 ml QID PO Last administered on 06/01/16 08:43; Admin Dose 5 ML; Start 05/27/16 at 13:00 Acetaminophen/ Hydrocodone Bitart ([place] (5/325)) 1 tab Q4H PRN PO MODERATE PAIN LEVEL 4-6 Last administered on 06/01/16 08:46; Admin Dose 1 TAB; Start at 13:30 Morphine Sulfate (morphine) 2 mg Q4H PRN IV PAIN Last administered on 23:18; Admin Dose 2 MG; Start 05/28/16 at 14:00 Naproxen (Naprosyn) 500 mg BID PO Last administered on 05/30/16 08:16; Admin Dose 500 MG; Start 05/28/16 at 14:20; Status Future Hold Pantoprazole 40 mg 40 mg DAILY@06 PO Last administered on 06/01/16 05:35; Admin Dose 40 MG; Start 05/30/16 at 06:00 Vancomycin HCl/ Sodium Chloride (Vancocin/NS) 150 ml @ 75 mls/hr Q8H IVPB ; Start 06/01/16 at 13:00 Miscellaneous Information (*Rx Drug Level Order Reminder*) VANCOMYCIN TROUGH AT 1200 ONCE ONCE XX ; Start 06/02/16 at 12:00; Stop 06/02/16 at 12:01 ZEINA FITZPATRICK NP Jun 01, 2016 12:05
[2016-06-01] MEDS: VANCOMYCIN 750 MG in SOD CHLORIDE 0.9% 150 ML IVPB SCH ×2 (12:35→21:11)
[2016-06-01] MEDS: CEFTRIAXONE 1 GM/50 ML (PMX) 50 ML IVPB SCH (17:06)
[2016-06-01 19:38] VITALS: BP_SYST 100; BP_SYST 136; BP_DIAS 55; BP_DIAS 93; RESP 20
[2016-06-02] MEDS: POLYMYXIN/TRIMETHOPRIM 10 ML OPH BOTH EYES SCH ×7 (01:33→20:20)
[2016-06-02] MEDS: HYDROCODONE/APAP (5/325) TAB PO PRN ×5 (01:47→23:14)
[2016-06-02] MEDS: VANCOMYCIN 750 MG in SOD CHLORIDE 0.9% 150 ML IVPB SCH ×3 (05:09→20:20)
[2016-06-02] MEDS: PANTOPRAZOLE (EC) 40 MG TAB PO SCH (05:09)
[2016-06-02 05:13] LABS: ADD SCAN DIFF NO
[2016-06-02 05:21] LABS: BASOPHIL # 0.1 10^3/ul (0.0-0.1); BASOPHILS % 0.8 % (0.0-2.0); EOSINOPHILS # 0.4 10^3/ul (0.0-0.5); EOSINOPHILS % 3.6 % (0.0-7.0); HEMATOCRIT 41.1 % (42.0-52.0); HEMOGLOBIN 13.2 g/dl (14.0-18.0); LYMPHOCYTES # 2.2 10^3/ul (0.8-2.9); LYMPHOCYTES % 18.6 % (15.0-51.0); MEAN CORPUSCULAR HGB CONC 32.1 g/dl (32.0-37.0); MEAN CORPUSCULAR VOLUME 90.3 fl (82.0-101.0); MEAN PLATELET VOLUME 9.3 fl (7.4-10.4); MONOCYTE # 1.4 10^3/ul (0.3-0.9); MONOCYTES % 11.9 % (0.0-11.0); NEUTROPHIL # 7.4 10^3/ul (1.6-7.5); NEUTROPHILS % 61.6 % (39.0-77.0); PLATELET COUNT 608 10^3/UL (140-415); RED BLOOD COUNT 4.55 10^6/ul (4.70-6.10); RED CELL DISTRIBUTION WIDTH 12.8 % (11.5-14.5); WHITE BLOOD COUNT 12.1 10^3/ul (4.8-10.8)
[2016-06-02 07:39] LABS: POTASSIUM 3.8 mmol/L (3.5-5.1)
--- NOTE | 2016-06-02 07:39 | CONS ---
Date/Time of Note Date/Time of Note DATE: 06/02/16 TIME: 07:37 Consult Date/Type/Reason Admit Date/Time May 25, 2016 at 11:13 Initial Consult Date 05/25/16 Type of Consultation: Rheum Subjective Much less pain. Has been able to ambulate. No new complaints Objective Vital Signs Date Time Temp Pulse Resp B/P Pulse Ox O2 Delivery O2 Flow Rate FiO2 06/01/16 19:38 97.4 100 20 136/93 95 Intake and Output 06/01/16 06/01/16 06/02/16 15:00 23:00 07:00 Intake Total 250 ml 2600 ml 870 ml Output Total 600 ml 300 ml Balance 250 ml 2000 ml 570 ml Exam Alert, Oriented, NAD. Skin without rash. HEENT. Conjunctival/subconjunctival erythema, somewhat improved but still present PERRL. Neck without lymphadenopathy. Chest clear Heart RRR Abd. Soft Ext. Less erythema left ankle. Minimal tenderness. Knees without effusion, minimal tenderness. Better ROM. Hands without tenderness. Right shoulder without tenderness and good ROM. Other joints without synovitis. Neurol grossly intact. Results/Medications Result Diagram: 06/02/16 0449 06/01/16 0458 Results 24 hrs Laboratory Tests Test 06/02/16 04:49 White Blood Count 12.1 H Red Blood Count 4.55 L Hemoglobin 13.2 L Hematocrit 41.1 L Mean Corpuscular Volume 90.3 Mean Corpuscular Hemoglobin 29.0 Mean Corpuscular Hemoglobin Concent 32.1 Red Cell Distribution Width 12.8 Platelet Count 608 H Mean Platelet Volume 9.3 Neutrophils % 61.6 Lymphocytes % 18.6 Monocytes % 11.9 H Eosinophils % 3.6 Basophils % 0.8 Nucleated Red Blood Cells % 0.0 Neutrophils # 7.4 Lymphocytes # 2.2 Monocytes # 1.4 H Eosinophils # 0.4 Basophils # 0.1 Nucleated Red Blood Cells # 0.0 Medications Current Medications Ceftriaxone Sodium (Rocephin) 50 ml @ 100 mls/hr Q24H IVPB Last administered on 06/01/16t 17:06; Admin Dose 100 MLS/HR; Start 05/26/16 at 18:00 Ondansetron HCl (Zofran Tab) 4 mg Q6H PRN PO NAUSEA AND/OR VOMITING; Start at 17:30 Acetaminophen (Tylenol Tab) 650 mg Q6H PRN PO PAIN LEVEL 1-3 OR FEVER Last administered on 05/28/16 00:11; Admin Dose 650 MG; Start 05/25/16 at 17:30 Acetaminophen (Tylenol Supp) 650 mg Q6H PRN [place] PAIN LEVEL 1-3 OR FEVER; Start 05/25/16 at 17:30 Docusate Sodium (Colace) 100 mg Q12H PRN PO CONSTIPATION Last administered on 11:54; Admin Dose 100 MG; Start 05/25/16 at 17:30 Ciprofloxacin HCl (Ciloxan 0.3% Oph Oint) 1 applic TID BOTH EYES Last administered on 06/01/16 21:45; Admin Dose 1 APPLIC; Start 05/26/16 at 21:00 Nystatin (Nystatin Susp) 5 ml QID PO Last administered on 06/01/16 08:43; Admin Dose 5 ML; Start 05/27/16 at 13:00 Acetaminophen/ Hydrocodone Bitart ([place] (5/325)) 1 tab Q4H PRN PO MODERATE PAIN LEVEL 4-6 Last administered on 06/02/16 05:54; Admin Dose 1 TAB; Start at 13:30 Morphine Sulfate (morphine) 2 mg Q4H PRN IV PAIN Last administered on 23:18; Admin Dose 2 MG; Start 05/28/16 at 14:00 Naproxen (Naprosyn) 500 mg BID PO Last administered on 05/30/16 08:16; Admin Dose 500 MG; Start 05/28/16 at 14:20; Status Future Hold Pantoprazole 40 mg 40 mg DAILY@06 PO Last administered on 06/02/16 05:09; Admin Dose 40 MG; Start 05/30/16 at 06:00 Vancomycin HCl/ Sodium Chloride (Vancocin/NS) 150 ml @ 75 mls/hr Q8H IVPB Last administered on 06/02/16 05:09; Admin Dose 75 MLS/HR; Start 06/01/16 at 13 :00 Miscellaneous Information (*Rx Drug Level Order Reminder*) VANCOMYCIN TROUGH AT 1200 ONCE ONCE XX ; Start 06/02/16 at 12:00; Stop 06/02/16 at 12:01 Assessment/Plan Chief Complaint/Hosp Course Ass. 1. Reactive Arthritis with positive HLA-B27, arthritis, uveitis. 2. Arthiritis at knees, ankles, right hand and right shoulder improved. No evidence of infection there, or Gout. 3. Eye inflammation improved. Rec. 1. 10mg Prednisone today. 2. Continue Naproxen and PPI 3. Will need ophthalmology eval for possible steroid eye drops, or other. 4. Will likely need TNF medication eventually. Problems: JO ANN DOMINGUEZ MD Jun 02, 2016 07:39
[2016-06-02 07:41] LABS: CREATININE 0.7 mg/dl (0.61-1.24)
[2016-06-02 07:42] LABS: CALCIUM 10.3 mg/dl (8.4-10.2)
[2016-06-02] MEDS ORDERED: predniSONE 10 MG TAB PO SCH (08:00)
[2016-06-02 08:12] VITALS: BP 142/90; RESP 14
[2016-06-02] MEDS: NYSTATIN SUSP 5 ML CUP PO SCH ×4 (08:42→20:02)
[2016-06-02] MEDS: morphine 2 MG INJ IV PRN ×2 (08:43→20:20)
[2016-06-02] MEDS: CIPROFLOXACIN 0.3% 3.5 GM OPH OINT BOTH EYES SCH ×3 (08:49→20:20)
[2016-06-02] MEDS ORDERED: predniSOLONE (3 MG/ML) CUP PO SCH (09:00)
--- NOTE | 2016-06-02 09:15 | PN ---
Date/Time of Note Date/Time of Note DATE: 06/02/16 TIME: 09:12 Assessment/Plan VTE Prophylaxis VTE Prophylaxis Intervention: SCD's Lines/Catheters IV Catheter Type (from [facility]): Saline Lock Urinary Cath still in place: No Assessment/Plan Chief Complaint/Hosp Course Assessment/Plan 45M with: 1. 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 Orthopedic Consult evaluated pt, no surgical intervention needed. - Prednisone 10 mg x 1 today, monitor weight bearing status. - per Rheum, consider ophthalmology eval for possible steroid eye drops, or other. - continue abx drops for eyes. - continue IV abx, f/u ID rec's. - per rheum, may need TNF meds as well 2. acute transaminitis with elevated total bilirubin - trending down now. US abdomen- negative for liver cirrhosis - monitor 3. Blood culture positive with staphylococcus - continue IV abx, f/u ID rec's 4. Iritis - see # 1 5. Bright red blood per rectum - concerned about Lower GI bleeding s/p GI consult yesterday, 3 days ago. Stool For Occult blood is positive, but H/H stable - monitor CBC, f/u GI rec's regarding possible colonoscopy. 6. GI ppx - PPI Problems: Subjective 24 Hr Interval Summary Free Text/Dictation Pt seen by rheum today, smpts improved. Exam/Review of Systems Vital Signs Vitals Vital Signs Date Time Temp Pulse Resp B/P Pulse Ox O2 Delivery O2 Flow Rate FiO2 06/02/16 08:12 97.6 91 14 142/90 06/01/16 19:38 95 Intake and Output 06/01/16 06/01/16 06/02/16 15:00 23:00 07:00 Intake Total 250 ml 2600 ml 870 ml Output Total 600 ml 300 ml Balance 250 ml 2000 ml 570 ml Exam GENERAL APPEARANCE: lying in bed comfortably without any distress; awake, alert , oriented, able to answer questions HEENT: PERRL/EOMI. Conjunctival/subconjunctival erythema somewhat improved but still present RESPIRATORY: Effort is normal. Clear to auscultation bilaterally. CARDIOVASCULAR: Normal S1, S2. Regular rhythm and rate. No murmur, no bruits , no edema. Peripheral pulses, radial pulses palpable. Cap refill is normal. CHEST: Normal expansion of thorax during inspiration. GASTROINTESTINAL: Abdomen is soft, nontender, not distended. Bowel sounds present. No guarding, no rebound. M/S: Ext. Less erythema left ankle. Minimal tenderness. Knees with less effusion, mild tenderness. Better ROM. NEUROLOGIC: Cranial nerves II through XII grossly intact Results Result Diagram: 06/02/1644806/02/16448 Results 24 hrs Laboratory Tests Test 06/02/16 04:49 White Blood Count 12.1 H Red Blood Count 4.55 L Hemoglobin 13.2 L Hematocrit 41.1 L Mean Corpuscular Volume 90.3 Mean Corpuscular Hemoglobin 29.0 Mean Corpuscular Hemoglobin Concent 32.1 Red Cell Distribution Width 12.8 Platelet Count 608 H Mean Platelet Volume 9.3 Neutrophils % 61.6 Lymphocytes % 18.6 Monocytes % 11.9 H Eosinophils % 3.6 Basophils % 0.8 Nucleated Red Blood Cells % 0.0 Neutrophils # 7.4 Lymphocytes # 2.2 Monocytes # 1.4 H Eosinophils # 0.4 Basophils # 0.1 Nucleated Red Blood Cells # 0.0 Sodium Level 136 Potassium Level 3.8 Chloride Level 97 Carbon Dioxide Level 30 Anion Gap 13 Blood Urea Nitrogen 12 Creatinine 0.70 Glucose Level 134 Calcium Level 10.3 H Medications Medications Current Medications Ceftriaxone Sodium (Rocephin) 50 ml @ 100 mls/hr Q24H IVPB Last administered on 06/01/16 17:06; Admin Dose 100 MLS/HR; Start 05/26/16 at 18:00 Ondansetron HCl (Zofran Tab) 4 mg Q6H PRN PO NAUSEA AND/OR VOMITING; Start at 17:30 Acetaminophen (Tylenol Tab) 650 mg Q6H PRN PO PAIN LEVEL 1-3 OR FEVER Last administered on 05/28/16 00:11; Admin Dose 650 MG; Start 05/25/16 at 17:30 Acetaminophen (Tylenol Supp) 650 mg Q6H PRN [place] PAIN LEVEL 1-3 OR FEVER; Start 05/25/16 at 17:30 Docusate Sodium (Colace) 100 mg Q12H PRN PO CONSTIPATION Last administered on 11:54; Admin Dose 100 MG; Start 05/25/16 at 17:30 Ciprofloxacin HCl (Ciloxan 0.3% Oph Oint) 1 applic TID BOTH EYES Last administered on 06/02/16 08:49; Admin Dose 1 APPLIC; Start 05/26/16 at 21:00 Nystatin (Nystatin Susp) 5 ml QID PO Last administered on 06/01/16 08:43; Admin Dose 5 ML; Start 05/27/16 at 13:00 Acetaminophen/ Hydrocodone Bitart ([place] (5/325)) 1 tab Q4H PRN PO MODERATE PAIN LEVEL 4-6 Last administered on 06/02/16 05:54; Admin Dose 1 TAB; Start at 13:30 Morphine Sulfate (morphine) 2 mg Q4H PRN IV PAIN Last administered on 08:43; Admin Dose 2 MG; Start 05/28/16 at 14:00 Naproxen (Naprosyn) 500 mg BID PO Last administered on 05/30/16 08:16; Admin Dose 500 MG; Start 05/28/16 at 14:20; Status Future Hold Pantoprazole 40 mg 40 mg DAILY@06 PO Last administered on 06/02/16 05:09; Admin Dose 40 MG; Start 05/30/16 at 06:00 Vancomycin HCl/ Sodium Chloride (Vancocin/NS) 150 ml @ 75 mls/hr Q8H IVPB Last administered on 06/02/16 05:09; Admin Dose 75 MLS/HR; Start 06/01/16 at 13 :00 Miscellaneous Information (*Rx Drug Level Order Reminder*) VANCOMYCIN TROUGH AT 1200 ONCE ONCE XX ; Start 06/02/16 at 12:00; Stop 06/02/16 at 12:01 DARRICK SAPP Jun 02, 2016 09:15
[2016-06-02 12:37] LABS: TB-NIL 2.43 IU/mL
--- NOTE | 2016-06-02 13:05 | CONS ---
Date/Time of Note Date/Time of Note DATE: 06/02/16 TIME: 13:03 Assessment/Plan Assessment/Plan Chief Complaint/Hosp Course SUBJECTIVE: No acute events, alert, c/o joints pain, no fevers, nad ANTIMICROBIALS: The patient is on: 1. Vanco 2. Rocephin. PHYSICAL EXAMINATION: GENERAL: This is a well-nourished, well-developed, middle-aged [place] man who is alert, in no distress. HEENT: Head atraumatic, normocephalic. Sclerae anicteric. The patient has scleral erythema with some purulence on his eyelashes. Buccal mucosa pink with white thrush on his tongue. NECK: Supple. No cervical lymphadenopathy. CHEST: Rise symmetrical. Breath sounds clear. HEART: S1, S2. ABDOMEN: Soft. Bowel sounds present. EXTREMITIES: Left foot erythema and edema improved ASSESSMENT: 1. S/p sepsis with fevers and leukocytosis==> resolving. 2. 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 3. B knee effusion==> s/p aspiration===> cx neg. 4. Acute bilateral conjunctivitis==> improving on Cipro/Polytrim gtts. 5. Gram-positive cocci bacteremia==> cw contaminant. 6. Oral thrush==> po Nystatin PLAN: Stable, continue present care, abx, f/u rheumatology rec-s staff Problems: Consultation Date/Type/Reason Admit Date/Time May 25, 2016 at 11:13 Initial Consult Date 05/25/16 Type of Consultation: id Exam/Review of Systems Vital Signs Vitals Vital Signs Date Time Temp Pulse Resp B/P Pulse Ox O2 Delivery O2 Flow Rate FiO2 06/02/16 08:12 97.6 91 14 142/90 06/01/16 19:38 95 Intake and Output 06/01/16 06/01/16 06/02/16 15:00 23:00 07:00 Intake Total 250 ml 2600 ml 870 ml Output Total 600 ml 300 ml Balance 250 ml 2000 ml 570 ml Results Result Diagram: 06/02/16 0449 06/02/16 0449 Results 24 hrs Laboratory Tests Test 06/02/16 04:49 06/02/16 11:44 White Blood Count 12.1 H Red Blood Count 4.55 L Hemoglobin 13.2 L Hematocrit 41.1 L Mean Corpuscular Volume 90.3 Mean Corpuscular Hemoglobin 29.0 Mean Corpuscular Hemoglobin Concent 32.1 Red Cell Distribution Width 12.8 Platelet Count 608 H Mean Platelet Volume 9.3 Neutrophils % 61.6 Lymphocytes % 18.6 Monocytes % 11.9 H Eosinophils % 3.6 Basophils % 0.8 Nucleated Red Blood Cells % 0.0 Neutrophils # 7.4 Lymphocytes # 2.2 Monocytes # 1.4 H Eosinophils # 0.4 Basophils # 0.1 Nucleated Red Blood Cells # 0.0 Sodium Level 136 Potassium Level 3.8 Chloride Level 97 Carbon Dioxide Level 30 Anion Gap 13 Blood Urea Nitrogen 12 Creatinine 0.70 Glucose Level 134 Calcium Level 10.3 H Vancomycin Level Trough 14.8 Medications Medications Current Medications Ceftriaxone Sodium (Rocephin) 50 ml @ 100 mls/hr Q24H IVPB Last administered on 06/01/16 17:06; Admin Dose 100 MLS/HR; Start 05/26/16 at 18:00 Ondansetron HCl (Zofran Tab) 4 mg Q6H PRN PO NAUSEA AND/OR VOMITING; Start at 17:30 Acetaminophen (Tylenol Tab) 650 mg Q6H PRN PO PAIN LEVEL 1-3 OR FEVER Last administered on 05/28/16 00:11; Admin Dose 650 MG; Start 05/25/16 at 17:30 Acetaminophen (Tylenol Supp) 650 mg Q6H PRN [place] PAIN LEVEL 1-3 OR FEVER; Start 05/25/16 at 17:30 Docusate Sodium (Colace) 100 mg Q12H PRN PO CONSTIPATION Last administered on 11:54; Admin Dose 100 MG; Start 05/25/16 at 17:30 Ciprofloxacin HCl (Ciloxan 0.3% Oph Oint) 1 applic TID BOTH EYES Last administered on 06/02/16 13:00; Admin Dose 1 APPLIC; Start 05/26/16 at 21:00 Nystatin (Nystatin Susp) 5 ml QID PO Last administered on 06/01/16 08:43; Admin Dose 5 ML; Start 05/27/16 at 13:00 Acetaminophen/ Hydrocodone Bitart ([place] (5/325)) 1 tab Q4H PRN PO MODERATE PAIN LEVEL 4-6 Last administered on 06/02/16 12:58; Admin Dose 1 TAB; Start at 13:30 Morphine Sulfate (morphine) 2 mg Q4H PRN IV PAIN Last administered on 08:43; Admin Dose 2 MG; Start 05/28/16 at 14:00 Naproxen (Naprosyn) 500 mg BID PO Last administered on 05/30/16 08:16; Admin Dose 500 MG; Start 05/28/16 at 14:20; Status Future Hold Pantoprazole 40 mg 40 mg DAILY@06 PO Last administered on 06/02/16 05:09; Admin Dose 40 MG; Start 05/30/16 at 06:00 Vancomycin HCl/ Sodium Chloride (Vancocin/NS) 150 ml @ 75 mls/hr Q8H IVPB Last administered on 06/02/16 05:09; Admin Dose 75 MLS/HR; Start 06/01/16 at 13 :00 ZEINA FITZPATRICK NP Jun 02, 2016 13:04
[2016-06-02] MEDS: CEFTRIAXONE 1 GM/50 ML (PMX) 50 ML IVPB SCH (17:53)
[2016-06-02 19:23] VITALS: BP 140/81; RESP 20
[2016-06-02] MEDS ORDERED: MAGNESIUM HYDROXIDE 30ML CUP PO ONE (20:30)
[2016-06-02] MEDS ORDERED: BISACODYL (EC) 5 MG TAB PO ONE (20:30)
[2016-06-02] MEDS: SENNA TAB PO SCH (21:11)
--- NOTE | 2016-06-02 23:43 | PN ---
Date/Time of Note Date/Time of Note DATE: 06/02/16 TIME: 23:43 Assessment/Plan Lines/Catheters IV Catheter Type (from Nrs): Saline Lock [place] in Place (from Nrs): No Assessment/Plan Chief Complaint/Hosp Course Thank you very much for involving me in the care of this patient. As you very well know this is a 45-year-old with no significant past medical history who presents to [facility] emergency department with a chief complaint of 1 week of pain in the left ankle with swelling and bruising. He says that he was receiving a massage after which he started to feel pain in his ankle as the masseuse was using warm rock with some oil. Patient reports that he started having pain in other joints including his knees a few days later and started to have difficulty with walking and standing. Patient also has been having bilateral conjunctivitis which has been going on for about 4 days. Patient denies fever, chills, nausea or vomiting. Denies travel to other countries recently. I was consulted for evaluation and treatment. Problems: Exam/Review of Systems Vital Signs Vitals Vital Signs Date Time Temp Pulse Resp B/P Pulse Ox O2 Delivery O2 Flow Rate FiO2 06/02/16 19:23 99.2 103 20 140/81 96 Intake and Output 06/01/16 06/01/16 06/02/16 14:59 22:59 06:59 Intake Total 250 ml 2600 ml 870 ml Output Total 600 ml 300 ml Balance 250 ml 2000 ml 570 ml Results Result Diagram: 06/02/16 0449 06/02/16 0449 MARYSE SHIRLEY DPM Jun 02, 2016 23:43
[2016-06-03] MEDS: POLYMYXIN/TRIMETHOPRIM 10 ML OPH BOTH EYES SCH ×6 (00:23→20:37)
[2016-06-03] MEDS: morphine 2 MG INJ IV PRN ×3 (02:27→13:14)
[2016-06-03] MEDS: VANCOMYCIN 750 MG in SOD CHLORIDE 0.9% 150 ML IVPB SCH ×3 (05:40→20:36)
[2016-06-03] MEDS: PANTOPRAZOLE (EC) 40 MG TAB PO SCH (05:40)
[2016-06-03] MEDS: HYDROCODONE/APAP (5/325) TAB PO PRN ×3 (05:40→19:49)
[2016-06-03 05:55] LABS: ADD SCAN DIFF NO
[2016-06-03 06:11] LABS: ABNORMAL IP MESSAGE 1; BASOPHIL # 0.1 10^3/ul (0.0-0.1); BASOPHILS % 0.5 % (0.0-2.0); EOSINOPHILS # 0.4 10^3/ul (0.0-0.5); EOSINOPHILS % 3.2 % (0.0-7.0); HEMATOCRIT 41.7 % (42.0-52.0); HEMOGLOBIN 13.7 g/dl (14.0-18.0); LYMPHOCYTES # 2.6 10^3/ul (0.8-2.9); LYMPHOCYTES % 19.1 % (15.0-51.0); MEAN CORPUSCULAR HEMOGLOBIN 29.4 pg (29.0-33.0); MEAN CORPUSCULAR HGB CONC 32.9 g/dl (32.0-37.0); MEAN CORPUSCULAR VOLUME 89.5 fl (82.0-101.0); MONOCYTE # 1.7 10^3/ul (0.3-0.9); MONOCYTES % 12.8 % (0.0-11.0); NEUTROPHIL # 8.4 10^3/ul (1.6-7.5); NEUTROPHILS % 61.7 % (39.0-77.0); PLATELET COUNT 630 10^3/UL (140-415); RED BLOOD COUNT 4.66 10^6/ul (4.70-6.10); WHITE BLOOD COUNT 13.5 10^3/ul (4.8-10.8)
[2016-06-03 06:23] LABS: POTASSIUM 3.9 mmol/L (3.5-5.1)
[2016-06-03 06:26] LABS: CREATININE 0.66 mg/dl (0.61-1.24)
[2016-06-03 06:27] LABS: CALCIUM 9.7 mg/dl (8.4-10.2)
[2016-06-03 07:42] VITALS: BP 130/89; RESP 16
[2016-06-03] MEDS: SENNA TAB PO SCH ×2 (09:36→20:36)
[2016-06-03] MEDS: NYSTATIN SUSP 5 ML CUP PO SCH ×4 (09:36→20:35)
--- NOTE | 2016-06-03 09:36 | PN ---
Date/Time of Note Date/Time of Note DATE: 06/03/16 TIME: 09:34 Assessment/Plan VTE Prophylaxis VTE Prophylaxis Intervention: SCD's Lines/Catheters IV [facility] Type (from [facility] Saline Lock Urinary Cath still in place: No Assessment/Plan Chief Complaint/Hosp Course Assessment/Plan 45M with: 1. 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 Orthopedic Consult evaluated pt, no surgical intervention needed. - f/u Rheum rec's regarding PO steroids, monitor weight bearing status. - per Rheum, consider ophthalmology eval for possible steroid eye drops, or other. - continue abx drops for eyes. - continue IV abx, f/u ID rec's. - per rheum, may need TNF meds as well - will try to discuss with them about length of tx with these meds along with steroids. 2. acute transaminitis with elevated total bilirubin - trending down now. US abdomen- negative for liver cirrhosis - monitor 3. Blood culture positive with staphylococcus - continue IV abx, f/u ID rec's 4. Iritis - see # 1 5. Bright red blood per rectum - concerned about Lower GI bleeding s/p GI consult yesterday, 3 days ago. Stool For Occult blood is positive, but H/H stable - monitor CBC, f/u GI rec's regarding possible colonoscopy. 6. GI ppx - PPI Problems: Subjective 24 Hr Interval Summary Free Text/Dictation Pt still with some joint pain symptoms today. Exam/Review of Systems Vital Signs Vitals Vital Signs Date Time Temp Pulse Resp B/P Pulse Ox O2 Delivery O2 Flow Rate FiO2 06/03/16 07:42 98.6 116 16 130/89 95 06/02/16 20:00 Room Air Intake and Output 06/02/16 06/02/16 06/03/16 15:00 23:00 07:00 Intake Total 300 ml 1330 ml 240 ml Output Total 900 ml 1050 ml Balance 300 ml 430 ml -810 ml Exam GENERAL APPEARANCE: lying in bed comfortably without any distress; awake, alert , oriented, able to answer questions HEENT: PERRL/EOMI. Conjunctival/subconjunctival erythema somewhat improved but still present RESPIRATORY: Effort is normal. Clear to auscultation bilaterally. CARDIOVASCULAR: Normal S1, S2. Regular rhythm and rate. No murmur, no bruits , no edema. Peripheral pulses, radial pulses palpable. Cap refill is normal. CHEST: Normal expansion of thorax during inspiration. GASTROINTESTINAL: Abdomen is soft, nontender, not distended. Bowel sounds present. No guarding, no rebound. M/S: Ext. Less erythema left ankle. Minimal tenderness. Knees with less effusion, mild tenderness. Better ROM. NEUROLOGIC: Cranial nerves II through XII grossly intact Results Result Diagram: 06/03/16 0500 06/03/16 0500 Results 24 hrs Laboratory Tests Test 06/02/16 11:44 06/03/16 05:00 Vancomycin Level Trough 14.8 White Blood Count 13.5 H Red Blood Count 4.66 L Hemoglobin 13.7 L Hematocrit 41.7 L Mean Corpuscular Volume 89.5 Mean Corpuscular Hemoglobin 29.4 Mean Corpuscular Hemoglobin Concent 32.9 Red Cell Distribution Width 13.0 Platelet Count 630 H Mean Platelet Volume 9.0 Neutrophils % 61.7 Lymphocytes % 19.1 Monocytes % 12.8 H Eosinophils % 3.2 Basophils % 0.5 Nucleated Red Blood Cells % 0.0 Neutrophils # 8.4 H Lymphocytes # 2.6 Monocytes # 1.7 H Eosinophils # 0.4 Basophils # 0.1 Nucleated Red Blood Cells # 0.0 Sodium Level 134 L Potassium Level 3.9 Chloride Level 95 L Carbon Dioxide Level 28 Anion Gap 15 Blood Urea Nitrogen 9 Creatinine 0.66 Glucose Level 161 Calcium Level 9.7 Medications Medications Current Medications Ceftriaxone Sodium (Rocephin) 50 ml @ 100 mls/hr Q24H IVPB Last administered on 06/02/16 17:53; Admin Dose 100 MLS/HR; Start 05/26/16 at 18:00 Ondansetron HCl (Zofran Tab) 4 mg Q6H PRN PO NAUSEA AND/OR VOMITING; Start at 17:30 Acetaminophen (Tylenol Tab) 650 mg Q6H PRN PO PAIN LEVEL 1-3 OR FEVER Last administered on 05/28/16 00:11; Admin Dose 650 MG; Start 05/25/16 at 17:30 Acetaminophen (Tylenol Supp) 650 mg Q6H PRN [place] PAIN LEVEL 1-3 OR FEVER; Start 05/25/16 at 17:30 Docusate Sodium (Colace) 100 mg Q12H PRN PO CONSTIPATION Last administered on 11:54; Admin Dose 100 MG; Start 05/25/16 at 17:30 Ciprofloxacin HCl (Ciloxan 0.3% Oph Oint) 1 applic TID BOTH EYES Last administered on 06/02/16 20:20; Admin Dose 1 APPLIC; Start 05/26/16 at 21:00 Nystatin (Nystatin Susp) 5 ml QID PO Last administered on 06/01/16 08:43; Admin Dose 5 ML; Start 05/27/16 at 13:00 Acetaminophen/ Hydrocodone Bitart ([place] (5/325)) 1 tab Q4H PRN PO MODERATE PAIN LEVEL 4-6 Last administered on 06/03/16 05:40; Admin Dose 1 TAB; Start at 13:30 Morphine Sulfate (morphine) 2 mg Q4H PRN IV PAIN Last administered on 02:27; Admin Dose 2 MG; Start 05/28/16 at 14:00 Naproxen (Naprosyn) 500 mg BID PO Last administered on 05/30/16 08:16; Admin Dose 500 MG; Start 05/28/16 at 14:20; Status Future Hold Pantoprazole 40 mg 40 mg DAILY@06 PO Last administered on 06/03/16 05:40; Admin Dose 40 MG; Start 05/30/16 at 06:00 Vancomycin HCl/ Sodium Chloride (Vancocin/NS) 150 ml @ 75 mls/hr Q8H IVPB Last administered on 06/03/16 05:40; Admin Dose 75 MLS/HR; Start 06/01/16 at 13 :00 Senna (Senokot) 2 tab BID PO Last administered on 06/02/16 21:11; Admin Dose 2 TAB; Start 06/02/16 at 21:00 DARRICK SAPP Jun 03, 2016 09:36
[2016-06-03] MEDS: CIPROFLOXACIN 0.3% 3.5 GM OPH OINT BOTH EYES SCH ×3 (09:39→20:37)
--- NOTE | 2016-06-03 12:57 | CONS ---
Date/Time of Note Date/Time of Note DATE: 06/03/16 TIME: 12:56 Assessment/Plan Assessment/Plan Chief Complaint/Hosp Course SUBJECTIVE: No acute events, c/o joints pain, unable to walk 2 to pain, no fevers, nad ANTIMICROBIALS: 1. Vanco 2. Rocephin. PHYSICAL EXAMINATION: GENERAL: This is a well-nourished, well-developed, middle-aged [place] man who is alert, in no distress. HEENT: Head atraumatic, normocephalic. Sclerae anicteric. The patient has scleral erythema with some purulence on his eyelashes. Buccal mucosa pink with white thrush on his tongue. NECK: Supple. No cervical lymphadenopathy. CHEST: Rise symmetrical. Breath sounds clear. HEART: S1, S2. ABDOMEN: Soft. Bowel sounds present. EXTREMITIES: Left foot erythema and edema improved ASSESSMENT: 1. S/p sepsis with fevers and leukocytosis==> resolving. 2. 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 3. B knee effusion==> s/p aspiration===> cx neg. 4. Acute bilateral conjunctivitis==> improving on Cipro/Polytrim gtts. 5. Gram-positive cocci bacteremia==> cw contaminant. 6. Oral thrush==> po Nystatin PLAN: Clinically unchanged, continue present care, abx, f/u rheumatology rec-s staff/pt Problems: Consultation Date/Type/Reason Admit Date/Time May 25, 2016 at 11:13 Initial Consult Date 05/25/16 Type of Consultation: id Exam/Review of Systems Vital Signs Vitals Vital Signs Date Time Temp Pulse Resp B/P Pulse Ox O2 Delivery O2 Flow Rate FiO2 06/03/16 07:42 98.6 116 16 130/89 95 06/02/16 20:00 Room Air Intake and Output 06/02/16 06/02/16 06/03/16 15:00 23:00 07:00 Intake Total 300 ml 1330 ml 240 ml Output Total 900 ml 1050 ml Balance 300 ml 430 ml -810 ml Results Result Diagram: 06/03/16 0500 06/03/16 0500 Results 24 hrs Laboratory Tests Test 06/03/16 05:00 White Blood Count 13.5 H Red Blood Count 4.66 L Hemoglobin 13.7 L Hematocrit 41.7 L Mean Corpuscular Volume 89.5 Mean Corpuscular Hemoglobin 29.4 Mean Corpuscular Hemoglobin Concent 32.9 Red Cell Distribution Width 13.0 Platelet Count 630 H Mean Platelet Volume 9.0 Neutrophils % 61.7 Lymphocytes % 19.1 Monocytes % 12.8 H Eosinophils % 3.2 Basophils % 0.5 Nucleated Red Blood Cells % 0.0 Neutrophils # 8.4 H Lymphocytes # 2.6 Monocytes # 1.7 H Eosinophils # 0.4 Basophils # 0.1 Nucleated Red Blood Cells # 0.0 Sodium Level 134 L Potassium Level 3.9 Chloride Level 95 L Carbon Dioxide Level 28 Anion Gap 15 Blood Urea Nitrogen 9 Creatinine 0.66 Glucose Level 161 Calcium Level 9.7 Medications Medications Current Medications Ceftriaxone Sodium (Rocephin) 50 ml @ 100 mls/hr Q24H IVPB Last administered on 06/02/16 17:53; Admin Dose 100 MLS/HR; Start 05/26/16 at 18:00 Ondansetron HCl (Zofran Tab) 4 mg Q6H PRN PO NAUSEA AND/OR VOMITING; Start at 17:30 Acetaminophen (Tylenol Tab) 650 mg Q6H PRN PO PAIN LEVEL 1-3 OR FEVER Last administered on 05/28/16 00:11; Admin Dose 650 MG; Start 05/25/16 at 17:30 Acetaminophen (Tylenol Supp) 650 mg Q6H PRN [place] PAIN LEVEL 1-3 OR FEVER; Start 05/25/16 at 17:30 Docusate Sodium (Colace) 100 mg Q12H PRN PO CONSTIPATION Last administered on 11:54; Admin Dose 100 MG; Start 05/25/16 at 17:30 Ciprofloxacin HCl (Ciloxan 0.3% Oph Oint) 1 applic TID BOTH EYES Last administered on 06/03/16 09:39; Admin Dose 1 APPLIC; Start 05/26/16 at 21:00 Nystatin (Nystatin Susp) 5 ml QID PO Last administered on 06/03/16 09:36; Admin Dose 5 ML; Start 05/27/16 at 13:00 Acetaminophen/ Hydrocodone Bitart ([place] (5/325)) 1 tab Q4H PRN PO MODERATE PAIN LEVEL 4-6 Last administered on 06/03/16 05:40; Admin Dose 1 TAB; Start at 13:30 Morphine Sulfate (morphine) 2 mg Q4H PRN IV PAIN Last administered on 09:37; Admin Dose 2 MG; Start 05/28/16 at 14:00; Status Future Hold Naproxen (Naprosyn) 500 mg BID PO Last administered on 05/30/16 08:16; Admin Dose 500 MG; Start 05/28/16 at 14:20; Status Future Hold Pantoprazole 40 mg 40 mg DAILY@06 PO Last administered on 06/03/16 05:40; Admin Dose 40 MG; Start 05/30/16 at 06:00 Vancomycin HCl/ Sodium Chloride (Vancocin/NS) 150 ml @ 75 mls/hr Q8H IVPB Last administered on 06/03/16 05:40; Admin Dose 75 MLS/HR; Start 06/01/16 at 13 :00 Senna (Senokot) 2 tab BID PO Last administered on 06/03/16 09:36; Admin Dose 2 TAB; Start 06/02/16 at 21:00 Hydromorphone HCl (Dilaudid) 0.5 mg Q4H PRN IV PAIN; Start 06/03/16 at 10:00 ZEINA FITZPATRICK NP Jun 03, 2016 12:57
[2016-06-03] MEDS: HYDROmorphONE 1 MG/ML SYG IV PRN ×2 (13:15→18:41)
--- NOTE | 2016-06-03 13:34 | CONS ---
Date/Time of Note Date/Time of Note DATE: 06/03/16 TIME: 13:22 Consult Date/Type/Reason Admit Date/Time May 25, 2016 at 11:13 Initial Consult Date 05/25/16 Type of Consultation: Rheum Subjective Has some increased bilateral knee pain and some ache right shoulder and left TMJ area. Objective Vital Signs Date Time Temp Pulse Resp B/P Pulse Ox O2 Delivery O2 Flow Rate FiO2 06/03/16 07:42 98.6 116 16 130/89 95 06/02/16 20:00 Room Air Intake and Output 06/02/16 06/02/16 06/03/16 15:00 23:00 07:00 Intake Total 300 ml 1330 ml 240 ml Output Total 900 ml 1050 ml Balance 300 ml 430 ml -810 ml Exam Alert, Oriented, NAD. Skin without rash. HEENT. Conjunctival/subconjunctival erythema, somewhat improved but still present PERRL. Neck without lymphadenopathy. Chest clear Heart RRR Abd. Soft Ext. Minimal erythema left ankle. Minimal tenderness. Knees with minimal effusion, minimal tenderness. Better ROM. Hands without tenderness. Right shoulder with minimal tenderness and good ROM. Mild tenderness at left TMJ. Other joints without synovitis. Neurol grossly intact. Results/Medications Result Diagram: 06/03/16 0500 06/03/16 0500 Results 24 hrs Laboratory Tests Test 06/03/16 05:00 White Blood Count 13.5 H Red Blood Count 4.66 L Hemoglobin 13.7 L Hematocrit 41.7 L Mean Corpuscular Volume 89.5 Mean Corpuscular Hemoglobin 29.4 Mean Corpuscular Hemoglobin Concent 32.9 Red Cell Distribution Width 13.0 Platelet Count 630 H Mean Platelet Volume 9.0 Neutrophils % 61.7 Lymphocytes % 19.1 Monocytes % 12.8 H Eosinophils % 3.2 Basophils % 0.5 Nucleated Red Blood Cells % 0.0 Neutrophils # 8.4 H Lymphocytes # 2.6 Monocytes # 1.7 H Eosinophils # 0.4 Basophils # 0.1 Nucleated Red Blood Cells # 0.0 Sodium Level 134 L Potassium Level 3.9 Chloride Level 95 L Carbon Dioxide Level 28 Anion Gap 15 Blood Urea Nitrogen 9 Creatinine 0.66 Glucose Level 161 Calcium Level 9.7 Medications Current Medications Ceftriaxone Sodium (Rocephin) 50 ml @ 100 mls/hr Q24H IVPB Last administered on 06/02/16 17:53; Admin Dose 100 MLS/HR; Start 05/26/16 at 18:00 Ondansetron HCl (Zofran Tab) 4 mg Q6H PRN PO NAUSEA AND/OR VOMITING; Start at 17:30 Acetaminophen (Tylenol Tab) 650 mg Q6H PRN PO PAIN LEVEL 1-3 OR FEVER Last administered on 05/28/16 00:11; Admin Dose 650 MG; Start 05/25/16 at 17:30 Acetaminophen (Tylenol Supp) 650 mg Q6H PRN [place] PAIN LEVEL 1-3 OR FEVER; Start 05/25/16 at 17:30 Docusate Sodium (Colace) 100 mg Q12H PRN PO CONSTIPATION Last administered on 11:54; Admin Dose 100 MG; Start 05/25/16 at 17:30 Ciprofloxacin HCl (Ciloxan 0.3% Oph Oint) 1 applic TID BOTH EYES Last administered on 06/03/16 13:16; Admin Dose 1 APPLIC; Start 05/26/16 at 21:00 Nystatin (Nystatin Susp) 5 ml QID PO Last administered on 06/03/16 09:36; Admin Dose 5 ML; Start 05/27/16 at 13:00 Acetaminophen/ Hydrocodone Bitart ([place] (5/325)) 1 tab Q4H PRN PO MODERATE PAIN LEVEL 4-6 Last administered on 06/03/16 05:40; Admin Dose 1 TAB; Start at 13:30 Morphine Sulfate (morphine) 2 mg Q4H PRN IV PAIN Last administered on 09:37; Admin Dose 2 MG; Start 05/28/16 at 14:00; Status Future Hold Naproxen (Naprosyn) 500 mg BID PO Last administered on 05/30/16 08:16; Admin Dose 500 MG; Start 05/28/16 at 14:20; Status Future Hold Pantoprazole 40 mg 40 mg DAILY@06 PO Last administered on 06/03/16 05:40; Admin Dose 40 MG; Start 05/30/16 at 06:00 Vancomycin HCl/ Sodium Chloride (Vancocin/NS) 150 ml @ 75 mls/hr Q8H IVPB Last administered on 06/03/16 13:19; Admin Dose 75 MLS/HR; Start 06/01/16 at 13 :00 Senna (Senokot) 2 tab BID PO Last administered on 06/03/16 09:36; Admin Dose 2 TAB; Start 06/02/16 at 21:00 Hydromorphone HCl (Dilaudid) 0.5 mg Q4H PRN IV PAIN Last administered on 13:15; Admin Dose 0.5 MG; Start 06/03/16 at 10:00 Assessment/Plan Chief Complaint/Hosp Course Ass. 1. Reactive Arthritis with positive HLA-B27, arthritis, uveitis. 2. Arthritis at knees, ankles, right hand and right shoulder improved, but now with some increased pain. . No evidence of infection there, or Gout. 3. Eye inflammation improved. 4. Mild Alk. Phos elevation of unclear significance. 5. LATENT TUBERCULOSIS with positive Quant. Gold. Rec. 1. Should start INH (for 9 month course). However I'd like to clarify etiology of elevated Alk. Phos first. 2. Will consider knee steroid injections to speed up ambulation. 3. [id number] Prednisone. 4. Continue Naproxen and PPI 5. Will need ophthalmology eval for possible steroid eye drops, or other. 6. Will likely need TNF medication eventually, but needs to be treated with 9 months of INH and Pyridoxine total, although can start TNF medication after a month. . Problems: JO ANN DOMINGUEZ MD Jun 03, 2016 13:32
[2016-06-03] MEDS: CEFTRIAXONE 1 GM/50 ML (PMX) 50 ML IVPB SCH (17:07)
[2016-06-03 19:31] VITALS: BP 154/94; RESP 18
[2016-06-04] MEDS: HYDROmorphONE 1 MG/ML SYG IV PRN ×3 (00:16→12:42)
[2016-06-04] MEDS: POLYMYXIN/TRIMETHOPRIM 10 ML OPH BOTH EYES SCH ×6 (00:16→21:06)
[2016-06-04] MEDS: HYDROCODONE/APAP (5/325) TAB PO PRN ×5 (03:30→21:32)
[2016-06-04] MEDS: VANCOMYCIN 750 MG in SOD CHLORIDE 0.9% 150 ML IVPB SCH ×3 (05:41→21:08)
[2016-06-04] MEDS: PANTOPRAZOLE (EC) 40 MG TAB PO SCH (05:42)
[2016-06-04 05:45] LABS: ADD SCAN DIFF NO
[2016-06-04 05:57] LABS: ABNORMAL IP MESSAGE 1; BASOPHIL # 0.2 10^3/ul (0.0-0.1); EOSINOPHILS # 0.4 10^3/ul (0.0-0.5); EOSINOPHILS % 2.3 % (0.0-7.0); HEMOGLOBIN 14.2 g/dl (14.0-18.0); LYMPHOCYTES # 2.2 10^3/ul (0.8-2.9); LYMPHOCYTES % 13.3 % (15.0-51.0); MEAN CORPUSCULAR HEMOGLOBIN 29.4 pg (29.0-33.0); MEAN PLATELET VOLUME 8.9 fl (7.4-10.4); MONOCYTES % 11.9 % (0.0-11.0); NEUTROPHIL # 11.2 10^3/ul (1.6-7.5); NEUTROPHILS % 67.6 % (39.0-77.0); PLATELET COUNT 692 10^3/UL (140-415); RED BLOOD COUNT 4.83 10^6/ul (4.70-6.10); RED CELL DISTRIBUTION WIDTH 12.9 % (11.5-14.5); WHITE BLOOD COUNT 16.5 10^3/ul (4.8-10.8)
[2016-06-04 06:07] LABS: POTASSIUM 3.7 mmol/L (3.5-5.1)
[2016-06-04 06:10] LABS: CREATININE 0.74 mg/dl (0.61-1.24)
[2016-06-04 06:11] LABS: CALCIUM 10.2 mg/dl (8.4-10.2)
[2016-06-04 07:20] VITALS: BP 117/72; RESP 16
[2016-06-04] MEDS: SENNA TAB PO SCH ×2 (08:47→21:00)
[2016-06-04] MEDS: NYSTATIN SUSP 5 ML CUP PO SCH ×4 (08:47→21:06)
[2016-06-04] MEDS: CIPROFLOXACIN 0.3% 3.5 GM OPH OINT BOTH EYES SCH ×3 (08:47→21:07)
[2016-06-04 09:40] LABS: ALBUMIN 3.2 g/dl (3.3-4.9)
[2016-06-04 09:43] LABS: BILIRUBIN,INDIRECT 0.4 mg/dl (0-1.1); BILIRUBIN,TOTAL 0.4 mg/dl (0.2-1.3); TOTAL PROTEIN 7.9 g/dl (6.1-8.1)
[2016-06-04] MEDS ORDERED: predniSONE 10 MG TAB PO SCH (10:00)
--- NOTE | 2016-06-04 10:04 | PN ---
Date/Time of Note Date/Time of Note DATE: 06/04/16 TIME: 09:38 Assessment/Plan VTE Prophylaxis VTE Prophylaxis Intervention: SCD's Lines/Catheters IV Catheter Type (from [facility]): Saline Lock Urinary Cath still in place: No Assessment/Plan Chief Complaint/Hosp Course Assessment/Plan 45M with: 1. 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 s/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 by Senior Mortgage Loan Processor - fluid cell count grew [phone] - reactive, fluid cx negative. Orthopedic Consult evaluated pt, no surgical intervention needed. - per Rheum, continue 10 mg Prednisone for now, monitor weight bearing status. - per Rheum, consider ophthalmology eval for possible steroid eye drops, or other. - continue abx drops for eyes. - continue IV abx, f/u ID rec's. - per rheum, will likely need TNF meds as well in one month as outpt. 2. acute transaminitis with elevated total bilirubin - US abdomen- negative for liver cirrhosis - will check liver profile today and discuss with GI about this. If LFT's nL , can start INH for TB tx (quant gold TB test was positive). 3. Blood culture positive with staphylococcus - contaminant? - continue IV abx, f/u ID rec's 4. Iritis - see # 1 5. Bright red blood per rectum - concerned about Lower GI bleeding s/p GI consult yesterday, 4 days ago. Stool For Occult blood is positive, but H/H stable - pt refusing colonoscopy. - monitor CBC, f/u GI rec's 6. GI ppx - PPI Problems: Subjective 24 Hr Interval Summary Free Text/Dictation Pt has slightly less pain today, seen by Rheum yesterday, Quant Gold TB test is positive. Exam/Review of Systems Vital Signs Vitals Vital Signs Date Time Temp Pulse Resp B/P Pulse Ox O2 Delivery O2 Flow Rate FiO2 06/04/16 07:20 98.7 113 16 117/72 95 06/03/16 20:00 Room Air Intake and Output 06/03/16 06/03/16 06/04/16 15:00 23:00 07:00 Intake Total 150 ml 2170 ml 1620 ml Output Total 1200 ml 950 ml Balance 150 ml 970 ml 670 ml Exam GENERAL APPEARANCE: lying in bed comfortably without any distress; awake, alert , oriented, able to answer questions HEENT: PERRL/EOMI. Conjunctival/subconjunctival erythema somewhat improved but still present RESPIRATORY: Effort is normal. Clear to auscultation bilaterally. CARDIOVASCULAR: Normal S1, S2. Regular rhythm and rate. No murmur, no bruits , no edema. Peripheral pulses, radial pulses palpable. Cap refill is normal. CHEST: Normal expansion of thorax during inspiration. GASTROINTESTINAL: Abdomen is soft, nontender, not distended. Bowel sounds present. No guarding, no rebound. M/S: Ext. Less erythema left ankle. Minimal tenderness. Knees with less effusion, mild tenderness. Better ROM. NEUROLOGIC: Cranial nerves II through XII grossly intact Results Result Diagram: 06/04/16 0505 06/04/16 0505 Results 24 hrs Laboratory Tests Test 06/04/16 05:05 White Blood Count 16.5 #H Red Blood Count 4.83 Hemoglobin 14.2 Hematocrit 43.0 Mean Corpuscular Volume 89.0 Mean Corpuscular Hemoglobin 29.4 Mean Corpuscular Hemoglobin Concent 33.0 Red Cell Distribution Width 12.9 Platelet Count 692 H Mean Platelet Volume 8.9 Neutrophils % 67.6 Lymphocytes % 13.3 L Monocytes % 11.9 H Eosinophils % 2.3 Basophils % 1.0 Nucleated Red Blood Cells % 0.0 Neutrophils # 11.2 H Lymphocytes # 2.2 Monocytes # 2.0 H Eosinophils # 0.4 Basophils # 0.2 H Nucleated Red Blood Cells # 0.0 Sodium Level 134 L Potassium Level 3.7 Chloride Level 93 L Carbon Dioxide Level 26 Anion Gap 19 H Blood Urea Nitrogen 11 Creatinine 0.74 Glucose Level 176 Calcium Level 10.2 Medications Medications Current Medications Ceftriaxone Sodium (Rocephin) 50 ml @ 100 mls/hr Q24H IVPB Last administered on 06/03/16 17:07; Admin Dose 100 MLS/HR; Start 05/26/16 at 18:00 Ondansetron HCl (Zofran Tab) 4 mg Q6H PRN PO NAUSEA AND/OR VOMITING; Start at 17:30 Acetaminophen (Tylenol Tab) 650 mg Q6H PRN PO PAIN LEVEL 1-3 OR FEVER Last administered on 05/28/16 00:11; Admin Dose 650 MG; Start 05/25/16 at 17:30 Acetaminophen (Tylenol Supp) 650 mg Q6H PRN [place] PAIN LEVEL 1-3 OR FEVER; Start 05/25/16 at 17:30 Docusate Sodium (Colace) 100 mg Q12H PRN PO CONSTIPATION Last administered on 11:54; Admin Dose 100 MG; Start 05/25/16 at 17:30 Ciprofloxacin HCl (Ciloxan 0.3% Oph Oint) 1 applic TID BOTH EYES Last administered on 06/04/16 08:47; Admin Dose 1 APPLIC; Start 05/26/16 at 21:00 Nystatin (Nystatin Susp) 5 ml QID PO Last administered on 06/04/16 08:47; Admin Dose 5 ML; Start 05/27/16 at 13:00 Acetaminophen/ Hydrocodone Bitart ([place] (5/325)) 1 tab Q4H PRN PO MODERATE PAIN LEVEL 4-6 Last administered on 06/04/16 08:57; Admin Dose 1 TAB; Start at 13:30 Morphine Sulfate (morphine) 2 mg Q4H PRN IV PAIN Last administered on 09:37; Admin Dose 2 MG; Start 05/28/16 at 14:00; Status Future Hold Naproxen (Naprosyn) 500 mg BID PO Last administered on 05/30/16 08:16; Admin Dose 500 MG; Start 05/28/16 at 14:20; Status Future Hold Pantoprazole 40 mg 40 mg DAILY@06 PO Last administered on 06/04/16 05:42; Admin Dose 40 MG; Start 05/30/16 at 06:00 Vancomycin HCl/ Sodium Chloride (Vancocin/NS) 150 ml @ 75 mls/hr Q8H IVPB Last administered on 06/04/16 05:41; Admin Dose 75 MLS/HR; Start 06/01/16 at 13 :00 Senna (Senokot) 2 tab BID PO Last administered on 06/04/16 08:47; Admin Dose 2 TAB; Start 06/02/16 at 21:00 Hydromorphone HCl (Dilaudid) 0.5 mg Q4H PRN IV PAIN Last administered on 05:41; Admin Dose 0.5 MG; Start 06/03/16 at 10:00 DARRICK SAPP Jun 04, 2016 10:04
--- NOTE | 2016-06-04 12:57 | CONS ---
Date/Time of Note Date/Time of Note DATE: 06/04/16 TIME: 12:53 Consult Date/Type/Reason Admit Date/Time May 25, 2016 at 11:13 Initial Consult Date 05/25/16 Type of Consultation: Rheum Subjective Continues with same complaints, with pain on standing. Pain at knees primarily. Objective Vital Signs Date Time Temp Pulse Resp B/P Pulse Ox O2 Delivery O2 Flow Rate FiO2 06/04/16 07:20 98.7 113 16 117/72 95 06/03/16 20:00 Room Air Intake and Output 06/03/16 06/03/16 06/04/16 15:00 23:00 07:00 Intake Total 150 ml 2170 ml 1620 ml Output Total 1200 ml 950 ml Balance 150 ml 970 ml 670 ml Exam Alert, Oriented, NAD. Skin without rash. HEENT. Conjunctival/subconjunctival erythema, somewhat improved but still present PERRL. Neck without lymphadenopathy. Chest clear Heart RRR Abd. Soft Ext. Without change. Minimal tenderness left ankle. Knees with minimal effusion, minimal tenderness. Better ROM. Hands without tenderness. Right shoulder with minimal tenderness and good ROM. Mild tenderness at left TMJ. Other joints without synovitis. Neurol grossly intact. Results/Medications Result Diagram: 06/04/16 0505 06/04/16 0505 Results 24 hrs Laboratory Tests Test 06/04/16 05:05 White Blood Count 16.5 #H Red Blood Count 4.83 Hemoglobin 14.2 Hematocrit 43.0 Mean Corpuscular Volume 89.0 Mean Corpuscular Hemoglobin 29.4 Mean Corpuscular Hemoglobin Concent 33.0 Red Cell Distribution Width 12.9 Platelet Count 692 H Mean Platelet Volume 8.9 Neutrophils % 67.6 Lymphocytes % 13.3 L Monocytes % 11.9 H Eosinophils % 2.3 Basophils % 1.0 Nucleated Red Blood Cells % 0.0 Neutrophils # 11.2 H Lymphocytes # 2.2 Monocytes # 2.0 H Eosinophils # 0.4 Basophils # 0.2 H Nucleated Red Blood Cells # 0.0 Sodium Level 134 L Potassium Level 3.7 Chloride Level 93 L Carbon Dioxide Level 26 Anion Gap 19 H Blood Urea Nitrogen 11 Creatinine 0.74 Glucose Level 176 Calcium Level 10.2 Total Bilirubin 0.4 Direct Bilirubin 0.00 Indirect Bilirubin 0.4 Aspartate Amino Transf (AST/SGOT) 43 Alanine Aminotransferase (ALT/SGPT) 41 Alkaline Phosphatase 202 H Total Protein 7.9 Albumin 3.2 L Medications Current Medications Ceftriaxone Sodium (Rocephin) 50 ml @ 100 mls/hr Q24H IVPB Last administered on 06/03/16 17:07; Admin Dose 100 MLS/HR; Start 05/26/16 at 18:00 Ondansetron HCl (Zofran Tab) 4 mg Q6H PRN PO NAUSEA AND/OR VOMITING; Start at 17:30 Acetaminophen (Tylenol Tab) 650 mg Q6H PRN PO PAIN LEVEL 1-3 OR FEVER Last administered on 05/28/16 00:11; Admin Dose 650 MG; Start 05/25/16 at 17:30 Acetaminophen (Tylenol Supp) 650 mg Q6H PRN [place] PAIN LEVEL 1-3 OR FEVER; Start 05/25/16 at 17:30 Docusate Sodium (Colace) 100 mg Q12H PRN PO CONSTIPATION Last administered on 11:54; Admin Dose 100 MG; Start 05/25/16 at 17:30 Ciprofloxacin HCl (Ciloxan 0.3% Oph Oint) 1 applic TID BOTH EYES Last administered on 06/04/16 12:25; Admin Dose 1 APPLIC; Start 05/26/16 at 21:00 Nystatin (Nystatin Susp) 5 ml QID PO Last administered on 06/04/16 08:47; Admin Dose 5 ML; Start 05/27/16 at 13:00 Acetaminophen/ Hydrocodone Bitart ([place] (5/325)) 1 tab Q4H PRN PO MODERATE PAIN LEVEL 4-6 Last administered on 06/04/16 08:57; Admin Dose 1 TAB; Start at 13:30 Morphine Sulfate (morphine) 2 mg Q4H PRN IV PAIN Last administered on 09:37; Admin Dose 2 MG; Start 05/28/16 at 14:00; Status Future Hold Naproxen (Naprosyn) 500 mg BID PO Last administered on 05/30/16 08:16; Admin Dose 500 MG; Start 05/28/16 at 14:20; Status Future Hold Pantoprazole 40 mg 40 mg DAILY@06 PO Last administered on 06/04/16 05:42; Admin Dose 40 MG; Start 05/30/16 at 06:00 Vancomycin HCl/ Sodium Chloride (Vancocin/NS) 150 ml @ 75 mls/hr Q8H IVPB Last administered on 06/04/16 12:24; Admin Dose 75 MLS/HR; Start 06/01/16 at 13 :00 Senna (Senokot) 2 tab BID PO Last administered on 06/04/16 08:47; Admin Dose 2 TAB; Start 06/02/16 at 21:00 Hydromorphone HCl (Dilaudid) 0.5 mg Q4H PRN IV PAIN Last administered on 12:42; Admin Dose 0.5 MG; Start 06/03/16 at 10:00 Miscellaneous Information (*Rx Drug Level Order Reminder*) VANCO TROUGH @ 0, 400 ON... ONCE ONCE XX ; Start 06/05/16 at 04:00; Stop 06/05/16 at 04:01 Prednisone (Prednisone) 10 mg ONCE ONCE PO ; Start 06/04/16 at 13:00; Stop at 13:01; Status UNV Assessment/Plan Chief Complaint/Hosp Course Ass. 1. Reactive Arthritis with positive HLA-B27, arthritis, uveitis. 2. Arthritis at knees, ankles, right hand and right shoulder improved, but now with some increased pain. . No evidence of infection there, or Gout. 3. Eye inflammation improved. 4. Mild Alk. Phos and transaminase elevation of unclear significance. 5. LATENT TUBERCULOSIS with positive Quant. Gold. Rec. 1. Should start INH (for 9 month course). However I'd like to clarify etiology of elevated Alk. Phos first aas discussed with Dr. Soto. 2. Will consider knee steroid injections to speed up ambulation. 3. Will [id number] Prednisone today and change to 20 mg q AM. 4. Continue Naproxen and PPI 5. Will need ophthalmology eval for possible steroid eye drops, or other. 6. Will likely need TNF medication eventually, but needs to be treated with 9 months of INH and Pyridoxine total, although can start TNF medication after a month. . Problems: JO ANN DOMINGUEZ MD Jun 04, 2016 12:57
[2016-06-04] MEDS ORDERED: predniSONE 10 MG TAB PO ONE (14:00)
--- NOTE | 2016-06-04 15:52 | PN ---
DATE: 06/04/2016 SUBJECTIVE: The patient is alert, lying comfortably in bed, no fevers. Vital signs stable. ANTIMICROBIALS: 1. Vancomycin. 2. Rocephin. Vancomycin trough on 06/02/2016 was 14.8. PHYSICAL EXAMINATION: GENERAL: Well-nourished, well-developed [place] man who is alert, in no distress. HEENT: Head atraumatic, normocephalic. Sclerae anicteric. Buccal mucosa pink. NECK: Supple. CHEST: Rise symmetrical. Breath sounds clear. HEART: S1, S2. ABDOMEN: Soft, bowel sounds present. EXTREMITIES: With resolving erythema and edema of left foot. ASSESSMENT: 1. Status post systemic inflammatory response syndrome with fevers and leukocytosis. 2. Left foot cellulitis, possibly reactive arthritis, markedly improved. 3. Bilateral knees effusions, status post aspiration with cultures being negative. 4. Status post conjunctivitis. 5. Status post coagulase-negative staph bacteremia consistent with contaminant. 6. Oral thrush, improving on oral nystatin. PLAN: The patient remains stable. He is being followed by Dr. Harris. He is on appropriate anti microbials which we will continue for now. Continue physical therapy. Steroids as per rheumatology . Dictated By: ZEINA [employer] REP for TA STORM/RUY Conf#: [id number] DID#: [id number]
[2016-06-04] MEDS: CEFTRIAXONE 1 GM/50 ML (PMX) 50 ML IVPB SCH (17:22)
[2016-06-04 20:04] VITALS: BP 128/86; RESP 16
[2016-06-05] MEDS: POLYMYXIN/TRIMETHOPRIM 10 ML OPH BOTH EYES SCH ×6 (01:00→20:35)
[2016-06-05] MEDS: HYDROCODONE/APAP (5/325) TAB PO PRN ×2 (03:45→20:34)
[2016-06-05 03:55] LABS: ADD SCAN DIFF NO
[2016-06-05 03:57] LABS: ABNORMAL IP MESSAGE 1; BASOPHIL # 0.1 10^3/ul (0.0-0.1); BASOPHILS % 0.6 % (0.0-2.0); EOSINOPHILS # 0.2 10^3/ul (0.0-0.5); EOSINOPHILS % 1.2 % (0.0-7.0); HEMATOCRIT 39.9 % (42.0-52.0); HEMOGLOBIN 13.4 g/dl (14.0-18.0); LYMPHOCYTES # 2.3 10^3/ul (0.8-2.9); LYMPHOCYTES % 14.8 % (15.0-51.0); MEAN CORPUSCULAR HEMOGLOBIN 29.8 pg (29.0-33.0); MEAN CORPUSCULAR HGB CONC 33.6 g/dl (32.0-37.0); MEAN CORPUSCULAR VOLUME 88.7 fl (82.0-101.0); MEAN PLATELET VOLUME 8.8 fl (7.4-10.4); MONOCYTE # 1.6 10^3/ul (0.3-0.9); MONOCYTES % 10.3 % (0.0-11.0); NEUTROPHIL # 10.8 10^3/ul (1.6-7.5); NEUTROPHILS % 68.9 % (39.0-77.0); PLATELET COUNT 677 10^3/UL (140-415); RED CELL DISTRIBUTION WIDTH 12.9 % (11.5-14.5); WHITE BLOOD COUNT 15.6 10^3/ul (4.8-10.8)
[2016-06-05 04:09] LABS: POTASSIUM 3.8 mmol/L (3.5-5.1)
[2016-06-05 04:12] LABS: CALCIUM 10.1 mg/dl (8.4-10.2); CREATININE 0.66 mg/dl (0.61-1.24)
[2016-06-05] MEDS: VANCOMYCIN 750 MG in SOD CHLORIDE 0.9% 150 ML IVPB SCH ×3 (05:05→20:33)
[2016-06-05] MEDS: PANTOPRAZOLE (EC) 40 MG TAB PO SCH (05:44)
[2016-06-05] MEDS: HYDROmorphONE 1 MG/ML SYG IV PRN ×3 (05:48→14:26)
[2016-06-05 07:21] VITALS: BP 125/79; RESP 16
[2016-06-05] MEDS: NYSTATIN SUSP 5 ML CUP PO SCH ×4 (09:00→20:34)
[2016-06-05] MEDS: SENNA TAB PO SCH ×2 (09:11→20:34)
[2016-06-05] MEDS: predniSONE 20 MG TAB PO SCH (09:12)
[2016-06-05] MEDS: CIPROFLOXACIN 0.3% 3.5 GM OPH OINT BOTH EYES SCH ×3 (09:13→20:36)
--- NOTE | 2016-06-05 09:53 | PN ---
Date/Time of Note Date/Time of Note DATE: 06/05/16 TIME: 09:50 Assessment/Plan VTE Prophylaxis VTE Prophylaxis Intervention: SCD's Lines/Catheters [facility] Saline Lock Urinary Cath still in place: No Assessment/Plan Chief Complaint/Hosp Course Assessment/Plan 45M with: 1. 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 s/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 by Biomedical Field Service Engineer - fluid cell count grew [phone] - reactive, fluid cx negative. Orthopedic Consult evaluated pt, no surgical intervention needed. - per Rheum, continue 20 mg Prednisone for now, monitor weight bearing status. - per Rheum, consider ophthalmology eval for possible steroid eye drops, or other. - continue abx drops for eyes. - continue IV abx, f/u ID rec's. - per rheum, will likely need TNF meds as well in one month as outpt. 2. + quant gold TB test with acute transaminitis with elevated total bilirubin - US abdomen- negative for liver cirrhosis, liver profile showed still elevated alk phos. (quant gold TB test was positive) - per discussion with ID team today, hold off on INH for now until alk phos normalizes. - monitor LFT's 3. Blood culture positive with staphylococcus - contaminant? - continue IV abx, f/u ID rec's 4. Iritis - see # 1 5. Bright red blood per rectum - concerned about Lower GI bleeding s/p GI consult yesterday, 5 days ago. Stool For Occult blood is positive, but H/H stable - pt refusing colonoscopy. - monitor CBC, f/u GI rec's 6. GI ppx - PPI Problems: Subjective 24 Hr Interval Summary Free Text/Dictation Pt had less pain yesterday, some more pain today however. Exam/Review of Systems Vital Signs Vitals Vital Signs Date Time Temp Pulse Resp B/P Pulse Ox O2 Delivery O2 Flow Rate FiO2 06/05/16 07:21 97.8 95 16 125/79 96 06/03/16 20:00 Room Air Intake and Output 06/04/16 06/04/16 06/05/16 15:00 23:00 07:00 Intake Total 150 ml 1230 ml 630 ml Output Total 900 ml 850 ml Balance 150 ml 330 ml -220 ml Exam GENERAL APPEARANCE: lying in bed comfortably without any distress; awake, alert , oriented, able to answer questions HEENT: PERRL/EOMI. Conjunctival/subconjunctival erythema somewhat improved but still present RESPIRATORY: Effort is normal. Clear to auscultation bilaterally. CARDIOVASCULAR: Normal S1, S2. Regular rhythm and rate. No murmur, no bruits , no edema. Peripheral pulses, radial pulses palpable. Cap refill is normal. CHEST: Normal expansion of thorax during inspiration. GASTROINTESTINAL: Abdomen is soft, nontender, not distended. Bowel sounds present. No guarding, no rebound. M/S: Ext. Less erythema left ankle. Minimal tenderness. Knees with less effusion, mild tenderness. Better ROM. NEUROLOGIC: Cranial nerves II through XII grossly intact Results Result Diagram: 06/05/16 0350 06/05/16 0350 Results 24 hrs Laboratory Tests Test 06/05/16 03:50 White Blood Count 15.6 H Red Blood Count 4.50 L Hemoglobin 13.4 L Hematocrit 39.9 L Mean Corpuscular Volume 88.7 Mean Corpuscular Hemoglobin 29.8 Mean Corpuscular Hemoglobin Concent 33.6 Red Cell Distribution Width 12.9 Platelet Count 677 H Mean Platelet Volume 8.8 Neutrophils % 68.9 Lymphocytes % 14.8 L Monocytes % 10.3 Eosinophils % 1.2 Basophils % 0.6 Nucleated Red Blood Cells % 0.0 Neutrophils # 10.8 H Lymphocytes # 2.3 Monocytes # 1.6 H Eosinophils # 0.2 Basophils # 0.1 Nucleated Red Blood Cells # 0.0 Sodium Level 135 Potassium Level 3.8 Chloride Level 96 L Carbon Dioxide Level 31 Anion Gap 12 # Blood Urea Nitrogen 15 Creatinine 0.66 Glucose Level 182 Calcium Level 10.1 Vancomycin Level Trough 11.5 Medications Medications Current Medications Ceftriaxone Sodium (Rocephin) 50 ml @ 100 mls/hr Q24H IVPB Last administered on 06/04/16t 17:22; Admin Dose 100 MLS/HR; Start 05/26/16 at 18:00 Ondansetron HCl (Zofran Tab) 4 mg Q6H PRN PO NAUSEA AND/OR VOMITING; Start at 17:30 Acetaminophen (Tylenol Tab) 650 mg Q6H PRN PO PAIN LEVEL 1-3 OR FEVER Last administered on 05/28/16 00:11; Admin Dose 650 MG; Start 05/25/16 at 17:30 Acetaminophen (Tylenol Supp) 650 mg Q6H PRN [place] PAIN LEVEL 1-3 OR FEVER; Start 05/25/16 at 17:30 Docusate Sodium (Colace) 100 mg Q12H PRN PO CONSTIPATION Last administered on 11:54; Admin Dose 100 MG; Start 05/25/16 at 17:30 Ciprofloxacin HCl (Ciloxan 0.3% Oph Oint) 1 applic TID BOTH EYES Last administered on 06/05/16 09:13; Admin Dose 1 APPLIC; Start 05/26/16 at 21:00 Nystatin (Nystatin Susp) 5 ml QID PO Last administered on 06/04/16 21:06; Admin Dose 5 ML; Start 05/27/16 at 13:00 Acetaminophen/ Hydrocodone Bitart ([place] (5/325)) 1 tab Q4H PRN PO MODERATE PAIN LEVEL 4-6 Last administered on 06/05/16 03:45; Admin Dose 1 TAB; Start at 13:30 Morphine Sulfate (morphine) 2 mg Q4H PRN IV PAIN Last administered on 09:37; Admin Dose 2 MG; Start 05/28/16 at 14:00; Status Future Hold Naproxen (Naprosyn) 500 mg BID PO Last administered on 05/30/16 08:16; Admin Dose 500 MG; Start 05/28/16 at 14:20; Status Future Hold Pantoprazole 40 mg 40 mg DAILY@06 PO Last administered on 06/05/16 05:44; Admin Dose 40 MG; Start 05/30/16 at 06:00 Vancomycin HCl/ Sodium Chloride (Vancocin/NS) 150 ml @ 75 mls/hr Q8H IVPB Last administered on 06/05/16 05:05; Admin Dose 75 MLS/HR; Start 06/01/16 at 13 :00 Senna (Senokot) 2 tab BID PO Last administered on 06/05/16 09:11; Admin Dose 2 TAB; Start 06/02/16 at 21:00 Hydromorphone HCl (Dilaudid) 0.5 mg Q4H PRN IV PAIN Last administered on 05:48; Admin Dose 0.5 MG; Start 06/03/16 at 10:00 Prednisone (Prednisone) 20 mg DAILY PO Last administered on 06/05/16 09:12; Admin Dose 20 MG; Start 06/05/16 at 09:00 DARRICK SAPP Jun 05, 2016 09:53
[2016-06-05 11:16] LABS: ALBUMIN 3.2 g/dl (3.3-4.9)
[2016-06-05 11:19] LABS: BILIRUBIN,INDIRECT 0.2 mg/dl (0-1.1); BILIRUBIN,TOTAL 0.2 mg/dl (0.2-1.3); TOTAL PROTEIN 7.9 g/dl (6.1-8.1)
--- NOTE | 2016-06-05 12:35 | RADRPT ---
PROCEDURE: CT Chest Without Contrast CLINICAL INDICATION: Positive TB test TECHNIQUE: Volumetric acquisition of the thorax was performed without the intravenous administrati on of contrast. Radiation Dose: CTDI = 6.69 mGy; DLP = 248.29 mGy-cm. COMPARISON: Previous chest of 05/25/2016. The previous chest demonstrated lung compression from a suboptimal inspiration with bibasilar atelec tatic change and a questionable retrocardiac infiltrate and borderline cardiomegaly. FINDINGS: Lung barragan: Minimal discoid atelectasis is seen in the right posterior sulcus. The lung barragan are otherwise clear with no alveolar infiltrate, nodule, or cavitation evident. The pleural spaces: No effusion or pneumothorax is identified. Lymph nodes: A 6 mm in short diameter precarinal node is evident. Cardiovascular structures: The heart is upper normal in size. There is minimal atherosclerotic stokes ge of the aorta which is normal in caliber. Thyroid: Unremarkable. Superior abdominal structures: No significant abnormality is evident. Osseous structures: Appear intact. IMPRESSION: 1. Minimal discoid atelectasis seen in the right posterior sulcus with the lung barragan and pleural spaces otherwise unremarkable. 2. Minimal atherosclerotic vascular calcification. 3. A 6 mm in short diameter precarinal node is evident. 4. No findings to suggest tuberculosis. Physician Galdino Date Time Electronically viewed and signed by Physician Galdino on 06/05/2016 12:34 /
--- NOTE | 2016-06-05 14:30 | CONS ---
Date/Time of Note Date/Time of Note DATE: 06/05/16 TIME: 14:26 Consult Date/Type/Reason Admit Date/Time May 25, 2016 at 11:13 Initial Consult Date 05/25/16 Type of Consultation: Rheum Subjective Less pain overall although at times pain increases. Able to walk with walker. Less pain at left jaw. Objective Vital Signs Date Time Temp Pulse Resp B/P Pulse Ox O2 Delivery O2 Flow Rate FiO2 06/05/16 07:21 97.8 95 16 125/79 96 06/03/16 20:00 Room Air Intake and Output 06/04/16 06/04/16 06/05/16 15:00 23:00 07:00 Intake Total 150 ml 1230 ml 630 ml Output Total 900 ml 850 ml Balance 150 ml 330 ml -220 ml Exam Alert, Oriented, NAD. Skin without rash. HEENT. Conjunctival/subconjunctival erythema, somewhat improved but still present PERRL. Neck without lymphadenopathy. Chest clear Heart RRR Abd. Soft Ext. Without change. Minimal tenderness left ankle. Knees with minimal effusion, minimal tenderness. Better ROM. Hands without tenderness. Right shoulder with minimal tenderness and good ROM. Less tenderness at left TMJ. Other joints without synovitis. Neurol grossly intact. Results/Medications Result Diagram: 06/05/16 0350 06/05/16 0350 Results 24 hrs Laboratory Tests Test 06/05/16 03:50 White Blood Count 15.6 H Red Blood Count 4.50 L Hemoglobin 13.4 L Hematocrit 39.9 L Mean Corpuscular Volume 88.7 Mean Corpuscular Hemoglobin 29.8 Mean Corpuscular Hemoglobin Concent 33.6 Red Cell Distribution Width 12.9 Platelet Count 677 H Mean Platelet Volume 8.8 Neutrophils % 68.9 Lymphocytes % 14.8 L Monocytes % 10.3 Eosinophils % 1.2 Basophils % 0.6 Nucleated Red Blood Cells % 0.0 Neutrophils # 10.8 H Lymphocytes # 2.3 Monocytes # 1.6 H Eosinophils # 0.2 Basophils # 0.1 Nucleated Red Blood Cells # 0.0 Sodium Level 135 Potassium Level 3.8 Chloride Level 96 L Carbon Dioxide Level 31 Anion Gap 12 # Blood Urea Nitrogen 15 Creatinine 0.66 Glucose Level 182 Calcium Level 10.1 Total Bilirubin 0.2 Direct Bilirubin 0.00 Indirect Bilirubin 0.2 Aspartate Amino Transf (AST/SGOT) 51 H Alanine Aminotransferase (ALT/SGPT) 53 Alkaline Phosphatase 201 H Total Protein 7.9 Albumin 3.2 L Vancomycin Level Trough 11.5 Medications Current Medications Ceftriaxone Sodium (Rocephin) 50 ml @ 100 mls/hr Q24H IVPB Last administered on 06/04/16 17:22; Admin Dose 100 MLS/HR; Start 05/26/16 at 18:00 Ondansetron HCl (Zofran Tab) 4 mg Q6H PRN PO NAUSEA AND/OR VOMITING; Start at 17:30 Acetaminophen (Tylenol Tab) 650 mg Q6H PRN PO PAIN LEVEL 1-3 OR FEVER Last administered on 05/28/16 00:11; Admin Dose 650 MG; Start 05/25/16 at 17:30 Acetaminophen (Tylenol Supp) 650 mg Q6H PRN [place] PAIN LEVEL 1-3 OR FEVER; Start 05/25/16 at 17:30 Docusate Sodium (Colace) 100 mg Q12H PRN PO CONSTIPATION Last administered on 11:54; Admin Dose 100 MG; Start 05/25/16 at 17:30 Ciprofloxacin HCl (Ciloxan 0.3% Oph Oint) 1 applic TID BOTH EYES Last administered on 06/05/16 13:44; Admin Dose 1 APPLIC; Start 05/26/16 at 21:00 Nystatin (Nystatin Susp) 5 ml QID PO Last administered on 06/04/16 21:06; Admin Dose 5 ML; Start 05/27/16 at 13:00 Acetaminophen/ Hydrocodone Bitart ([place] (5/325)) 1 tab Q4H PRN PO MODERATE PAIN LEVEL 4-6 Last administered on 06/05/16 03:45; Admin Dose 1 TAB; Start at 13:30 Morphine Sulfate (morphine) 2 mg Q4H PRN IV PAIN Last administered on 09:37; Admin Dose 2 MG; Start 05/28/16 at 14:00; Status Future Hold Naproxen (Naprosyn) 500 mg BID PO Last administered on 05/30/16 08:16; Admin Dose 500 MG; Start 05/28/16 at 14:20; Status Future Hold Pantoprazole 40 mg 40 mg DAILY@06 PO Last administered on 06/05/16 05:44; Admin Dose 40 MG; Start 05/30/16 at 06:00 Vancomycin HCl/ Sodium Chloride (Vancocin/NS) 150 ml @ 75 mls/hr Q8H IVPB Last administered on 06/05/16 13:45; Admin Dose 75 MLS/HR; Start 06/01/16 at 13 :00 Senna (Senokot) 2 tab BID PO Last administered on 06/05/16 09:11; Admin Dose 2 TAB; Start 06/02/16 at 21:00 Hydromorphone HCl (Dilaudid) 0.5 mg Q4H PRN IV PAIN Last administered on 10:17; Admin Dose 0.5 MG; Start 06/03/16 at 10:00 Prednisone (Prednisone) 20 mg DAILY PO Last administered on 06/05/16 09:12; Admin Dose 20 MG; Start 06/05/16 at 09:00 Assessment/Plan Chief Complaint/Hosp Course Ass. 1. Reactive Arthritis with positive HLA-B27, arthritis, uveitis. 2. Arthritis at knees, ankles, right hand and right shoulder improved, but now with some increased pain. . No evidence of infection there, or Gout. 3. Eye inflammation improved. 4. Mild Alk. Phos and transaminase elevation of unclear significance without recent change. Abd BRITTON and CT scan unremarkable 5. LATENT TUBERCULOSIS with positive Quant. Gold. Rec. 1. Should start INH (for 9 month course). However I'd like to clarify etiology of elevated Alk. Phos first as discussed with Dr. Soto. 2. Continue Prednisone 20 mg q AM. 3. Continue Naproxen and PPI 4. Will need ophthalmology eval for possible steroid eye drops, or other. 5. Will likely need TNF medication eventually, but needs to be treated with 9 months of INH and Pyridoxine total, although can start TNF medication after a month. . Problems: JO ANN DOMINGUEZ MD Jun 05, 2016 14:30
--- NOTE | 2016-06-05 15:03 | CONS ---
Date/Time of Note Date/Time of Note DATE: 06/05/16 TIME: 14:59 Assessment/Plan Assessment/Plan Chief Complaint/Hosp Course SUBJECTIVE: The patient is alert, lying comfortably in bed, no fevers. Vital signs stable. ANTIMICROBIALS: 1. Vancomycin. 2. Rocephin. Vancomycin trough on 06/02/2016 was 14.8. PHYSICAL EXAMINATION: GENERAL: Well-nourished, well-developed [place] man who is alert, in no distress. HEENT: Head atraumatic, normocephalic. Sclerae anicteric. Buccal mucosa pink. NECK: Supple. CHEST: Rise symmetrical. Breath sounds clear. HEART: S1, S2. ABDOMEN: Soft, bowel sounds present. EXTREMITIES: With resolving erythema and edema of left foot. ASSESSMENT: 1. Status post systemic inflammatory response syndrome with fevers and leukocytosis. 2. Left foot cellulitis==> improved. 3. Bilateral knees effusions, status post aspiration with cultures being negative/reactive arthritis. 4. Status post conjunctivitis. 5. Status post coagulase-negative staph bacteremia consistent with contaminant. 6. Oral thrush, improving on oral nystatin. 7. + QFT===> CT chest no acute findings 8. Elevated Alk phos==> asymptomatic PLAN: The patient remains stable. Will start INH, continue abx, f/u rheumatology rec-s, monitor LFT. Steroids as per rheumatology. JANNA Nj Problems: Consultation Date/Type/Reason Admit Date/Time May 25, 2016 at 11:13 Initial Consult Date 05/25/16 Type of Consultation: id Exam/Review of Systems Vital Signs Vitals Vital Signs Date Time Temp Pulse Resp B/P Pulse Ox O2 Delivery O2 Flow Rate FiO2 06/05/16 07:21 97.8 95 16 125/79 96 06/03/16 20:00 Room Air Intake and Output 06/04/16 06/04/16 06/05/16 15:00 23:00 07:00 Intake Total 150 ml 1230 ml 630 ml Output Total 900 ml 850 ml Balance 150 ml 330 ml -220 ml Results Result Diagram: 06/05/16 0350 06/05/16 0350 Results 24 hrs Laboratory Tests Test 06/05/16 03:50 White Blood Count 15.6 H Red Blood Count 4.50 L Hemoglobin 13.4 L Hematocrit 39.9 L Mean Corpuscular Volume 88.7 Mean Corpuscular Hemoglobin 29.8 Mean Corpuscular Hemoglobin Concent 33.6 Red Cell Distribution Width 12.9 Platelet Count 677 H Mean Platelet Volume 8.8 Neutrophils % 68.9 Lymphocytes % 14.8 L Monocytes % 10.3 Eosinophils % 1.2 Basophils % 0.6 Nucleated Red Blood Cells % 0.0 Neutrophils # 10.8 H Lymphocytes # 2.3 Monocytes # 1.6 H Eosinophils # 0.2 Basophils # 0.1 Nucleated Red Blood Cells # 0.0 Sodium Level 135 Potassium Level 3.8 Chloride Level 96 L Carbon Dioxide Level 31 Anion Gap 12 # Blood Urea Nitrogen 15 Creatinine 0.66 Glucose Level 182 Calcium Level 10.1 Total Bilirubin 0.2 Direct Bilirubin 0.00 Indirect Bilirubin 0.2 Aspartate Amino Transf (AST/SGOT) 51 H Alanine Aminotransferase (ALT/SGPT) 53 Alkaline Phosphatase 201 H Total Protein 7.9 Albumin 3.2 L Vancomycin Level Trough 11.5 Medications Medications Current Medications Ceftriaxone Sodium (Rocephin) 50 ml @ 100 mls/hr Q24H IVPB Last administered on 06/04/16 17:22; Admin Dose 100 MLS/HR; Start 05/26/16 at 18:00 Ondansetron HCl (Zofran Tab) 4 mg Q6H PRN PO NAUSEA AND/OR VOMITING; Start at 17:30 Acetaminophen (Tylenol Tab) 650 mg Q6H PRN PO PAIN LEVEL 1-3 OR FEVER Last administered on 05/28/16 00:11; Admin Dose 650 MG; Start 05/25/16 at 17:30 Acetaminophen (Tylenol Supp) 650 mg Q6H PRN [place] PAIN LEVEL 1-3 OR FEVER; Start 05/25/16 at 17:30 Docusate Sodium (Colace) 100 mg Q12H PRN PO CONSTIPATION Last administered on 11:54; Admin Dose 100 MG; Start 05/25/16 at 17:30 Ciprofloxacin HCl (Ciloxan 0.3% Oph Oint) 1 applic TID BOTH EYES Last administered on 06/05/16 13:44; Admin Dose 1 APPLIC; Start 05/26/16 at 21:00 Nystatin (Nystatin Susp) 5 ml QID PO Last administered on 06/04/16 21:06; Admin Dose 5 ML; Start 05/27/16 at 13:00 Acetaminophen/ Hydrocodone Bitart ([place] (5/325)) 1 tab Q4H PRN PO MODERATE PAIN LEVEL 4-6 Last administered on 06/05/16 03:45; Admin Dose 1 TAB; Start at 13:30 Morphine Sulfate (morphine) 2 mg Q4H PRN IV PAIN Last administered on 09:37; Admin Dose 2 MG; Start 05/28/16 at 14:00; Status Future Hold Naproxen (Naprosyn) 500 mg BID PO Last administered on 05/30/16 08:16; Admin Dose 500 MG; Start 05/28/16 at 14:20; Status Future Hold Pantoprazole 40 mg 40 mg DAILY@06 PO Last administered on 06/05/16 05:44; Admin Dose 40 MG; Start 05/30/16 at 06:00 Vancomycin HCl/ Sodium Chloride (Vancocin/NS) 150 ml @ 75 mls/hr Q8H IVPB Last administered on 06/05/16 13:45; Admin Dose 75 MLS/HR; Start 06/01/16 at 13 :00 Senna (Senokot) 2 tab BID PO Last administered on 06/05/16 09:11; Admin Dose 2 TAB; Start 06/02/16 at 21:00 Hydromorphone HCl (Dilaudid) 0.5 mg Q4H PRN IV PAIN Last administered on 14:26; Admin Dose 0.5 MG; Start 06/03/16 at 10:00 Prednisone (Prednisone) 20 mg DAILY PO Last administered on 06/05/16 09:12; Admin Dose 20 MG; Start 06/05/16 at 09:00 ZEINA FITZPATRICK NP Jun 05, 2016 15:03
[2016-06-05] MEDS: ISONIAZID 300 MG TAB PO SCH ×3 (16:00→18:37)
[2016-06-05] MEDS: CEFTRIAXONE 1 GM/50 ML (PMX) 50 ML IVPB SCH (17:47)
[2016-06-05 20:15] VITALS: BP 120/75; RESP 18
[2016-06-06] MEDS: POLYMYXIN/TRIMETHOPRIM 10 ML OPH BOTH EYES SCH ×6 (01:00→20:23)
[2016-06-06] MEDS: HYDROCODONE/APAP (5/325) TAB PO PRN ×2 (02:53→21:35)
[2016-06-06] MEDS: VANCOMYCIN 750 MG in SOD CHLORIDE 0.9% 150 ML IVPB SCH ×3 (05:03→20:24)
[2016-06-06] MEDS: PANTOPRAZOLE (EC) 40 MG TAB PO SCH (05:59)
[2016-06-06] MEDS: HYDROmorphONE 1 MG/ML SYG IV PRN ×4 (05:59→17:38)
[2016-06-06 06:34] LABS: ADD SCAN DIFF NO
[2016-06-06 06:50] LABS: BASOPHIL # 0.1 10^3/ul (0.0-0.1); BASOPHILS % 0.8 % (0.0-2.0); EOSINOPHILS # 0.4 10^3/ul (0.0-0.5); EOSINOPHILS % 2.8 % (0.0-7.0); HEMATOCRIT 39.7 % (42.0-52.0); HEMOGLOBIN 12.6 g/dl (14.0-18.0); LYMPHOCYTES # 2.2 10^3/ul (0.8-2.9); LYMPHOCYTES % 16.8 % (15.0-51.0); MEAN CORPUSCULAR HEMOGLOBIN 28.6 pg (29.0-33.0); MEAN CORPUSCULAR HGB CONC 31.7 g/dl (32.0-37.0); MEAN CORPUSCULAR VOLUME 90.2 fl (82.0-101.0); MEAN PLATELET VOLUME 9.2 fl (7.4-10.4); MONOCYTE # 1.3 10^3/ul (0.3-0.9); MONOCYTES % 9.7 % (0.0-11.0); NEUTROPHIL # 8.9 10^3/ul (1.6-7.5); PLATELET COUNT 648 10^3/UL (140-415); RED CELL DISTRIBUTION WIDTH 12.7 % (11.5-14.5); WHITE BLOOD COUNT 13.3 10^3/ul (4.8-10.8)
[2016-06-06 07:25] VITALS: BP 133/84; RESP 22
[2016-06-06 07:29] LABS: POTASSIUM 3.6 mmol/L (3.5-5.1)
[2016-06-06 07:31] LABS: CREATININE 0.66 mg/dl (0.61-1.24)
[2016-06-06 07:33] LABS: CALCIUM 9.9 mg/dl (8.4-10.2)
[2016-06-06] MEDS: NYSTATIN SUSP 5 ML CUP PO SCH ×4 (08:14→20:23)
[2016-06-06] MEDS: predniSONE 20 MG TAB PO SCH (08:14)
[2016-06-06] MEDS: ISONIAZID 300 MG TAB PO SCH (08:14)
[2016-06-06] MEDS: SENNA TAB PO SCH ×2 (08:14→20:23)
[2016-06-06] MEDS: CIPROFLOXACIN 0.3% 3.5 GM OPH OINT BOTH EYES SCH ×3 (08:15→20:23)
--- NOTE | 2016-06-06 10:46 | PN ---
Date/Time of Note Date/Time of Note DATE: 06/06/16 TIME: 10:42 Assessment/Plan VTE Prophylaxis VTE Prophylaxis Intervention: SCD's Lines/Catheters IV [facility] Saline Lock Urinary Cath still in place: No Assessment/Plan Chief Complaint/Hosp Course Assessment/Plan 45M with: 1. 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 s/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 by Aircraft Instrument Engineer - fluid cell count grew [id number] - reactive, fluid cx negative. Orthopedic Consult evaluated pt, no surgical intervention needed. - per Rheum, continue 20 mg Prednisone for now, monitor weight bearing status. - per Rheum, consider ophthalmology eval for possible steroid eye drops, or other. - continue abx drops for eyes. - continue IV abx, f/u ID rec's. - per rheum, will likely need TNF meds as well in one month as outpt. 2. + quant gold TB test with acute transaminitis with elevated total bilirubin - US abdomen- negative for liver cirrhosis, liver profile showed still elevated alk phos. (quant gold TB test was positive). No findings to suggest tuberculosis on CT chest. - per discussion with ID team, on INH now - needs 9 months - monitor LFT's 3. Blood culture positive with staphylococcus - contaminant? - continue IV abx, f/u ID rec's 4. Iritis - see # 1 5. Bright red blood per rectum - concerned about Lower GI bleeding s/p GI consult yesterday, 6 days ago. Stool For Occult blood is positive, but H/H stable - pt refusing colonoscopy. - monitor CBC, f/u GI rec's 6. GI ppx - PPI Problems: Subjective 24 Hr Interval Summary Free Text/Dictation Pt still with some joint pains. After discussion with ID team yesterday and CT chest, started on INH yesterday as well. Exam/Review of Systems Vital Signs Vitals Vital Signs Date Time Temp Pulse Resp B/P Pulse Ox O2 Delivery O2 Flow Rate FiO2 06/06/16 07:25 98.2 98 22 133/84 97 06/03/16 20:00 Room Air Intake and Output 06/05/16 06/05/16 06/06/16 15:00 23:00 07:00 Intake Total 1310 ml 690 ml Output Total 950 ml 900 ml Balance 360 ml -210 ml Exam GENERAL APPEARANCE: lying in bed comfortably without any distress; awake, alert , oriented, able to answer questions HEENT: PERRL/EOMI. Conjunctival/subconjunctival erythema somewhat improved but still present RESPIRATORY: Effort is normal. Clear to auscultation bilaterally. CARDIOVASCULAR: Normal S1, S2. Regular rhythm and rate. No murmur, no bruits , no edema. Peripheral pulses, radial pulses palpable. Cap refill is normal. CHEST: Normal expansion of thorax during inspiration. GASTROINTESTINAL: Abdomen is soft, nontender, not distended. Bowel sounds present. No guarding, no rebound. M/S: Ext. Less erythema left ankle. Minimal tenderness. Knees with less effusion, mild tenderness. Better ROM. NEUROLOGIC: Cranial nerves II through XII grossly intact Results Result Diagram: 06/06/16 0536 06/06/16 0523 Results 24 hrs Laboratory Tests Test 06/06/16 05:23 06/06/16 05:36 Sodium Level 134 L Potassium Level 3.6 Chloride Level 98 Carbon Dioxide Level 29 Anion Gap 11 Blood Urea Nitrogen 13 Creatinine 0.66 Glucose Level 132 # Calcium Level 9.9 White Blood Count 13.3 H Red Blood Count 4.40 L Hemoglobin 12.6 L Hematocrit 39.7 L Mean Corpuscular Volume 90.2 Mean Corpuscular Hemoglobin 28.6 L Mean Corpuscular Hemoglobin Concent 31.7 L Red Cell Distribution Width 12.7 Platelet Count 648 H Mean Platelet Volume 9.2 Neutrophils % 67.0 Lymphocytes % 16.8 Monocytes % 9.7 Eosinophils % 2.8 Basophils % 0.8 Nucleated Red Blood Cells % 0.0 Neutrophils # 8.9 H Lymphocytes # 2.2 Monocytes # 1.3 H Eosinophils # 0.4 Basophils # 0.1 Nucleated Red Blood Cells # 0.0 Medications Medications Current Medications Ceftriaxone Sodium (Rocephin) 50 ml @ 100 mls/hr Q24H IVPB Last administered on 06/05/16t 17:47; Admin Dose 100 MLS/HR; Start 05/26/16 at 18:00 Ondansetron HCl (Zofran Tab) 4 mg Q6H PRN PO NAUSEA AND/OR VOMITING; Start at 17:30 Acetaminophen (Tylenol Tab) 650 mg Q6H PRN PO PAIN LEVEL 1-3 OR FEVER Last administered on 05/28/16 00:11; Admin Dose 650 MG; Start 05/25/16 at 17:30 Acetaminophen (Tylenol Supp) 650 mg Q6H PRN [place] PAIN LEVEL 1-3 OR FEVER; Start 05/25/16 at 17:30 Docusate Sodium (Colace) 100 mg Q12H PRN PO CONSTIPATION Last administered on 11:54; Admin Dose 100 MG; Start 05/25/16 at 17:30 Ciprofloxacin HCl (Ciloxan 0.3% Oph Oint) 1 applic TID BOTH EYES Last administered on 06/06/16 08:15; Admin Dose 1 APPLIC; Start 05/26/16 at 21:00 Nystatin (Nystatin Susp) 5 ml QID PO Last administered on 06/06/16 08:14; Admin Dose 5 ML; Start 05/27/16 at 13:00 Acetaminophen/ Hydrocodone Bitart ([place] (5/325)) 1 tab Q4H PRN PO MODERATE PAIN LEVEL 4-6 Last administered on 06/06/16 02:53; Admin Dose 1 TAB; Start at 13:30 Morphine Sulfate (morphine) 2 mg Q4H PRN IV PAIN Last administered on 09:37; Admin Dose 2 MG; Start 05/28/16 at 14:00; Status Future Hold Naproxen (Naprosyn) 500 mg BID PO Last administered on 05/30/16 08:16; Admin Dose 500 MG; Start 05/28/16 at 14:20; Status Future Hold Pantoprazole 40 mg 40 mg DAILY@06 PO Last administered on 06/06/16 05:59; Admin Dose 40 MG; Start 05/30/16 at 06:00 Vancomycin HCl/ Sodium Chloride (Vancocin/NS) 150 ml @ 75 mls/hr Q8H IVPB Last administered on 06/06/16 05:03; Admin Dose 75 MLS/HR; Start 06/01/16 at 13: 00 Senna (Senokot) 2 tab BID PO Last administered on 06/06/16 08:14; Admin Dose 2 TAB; Start 06/02/16 at 21:00 Hydromorphone HCl (Dilaudid) 0.5 mg Q4H PRN IV PAIN Last administered on 10:08; Admin Dose 0.5 MG; Start 06/03/16 at 10:00 Prednisone (Prednisone) 20 mg DAILY PO Last administered on 06/06/16 08:14; Admin Dose 20 MG; Start 06/05/16 at 09:00 Isoniazid (Isoniazid) 300 mg DAILY PO Last administered on 06/06/16 08:14; Admin Dose 300 MG; Start 06/05/16 at 16:00 DARRICK SAPP Jun 06, 2016 10:46
--- NOTE | 2016-06-06 17:04 | CONS ---
Date/Time of Note Date/Time of Note DATE: 06/06/16 TIME: 17:01 Consult Date/Type/Reason Admit Date/Time May 25, 2016 at 11:13 Initial Consult Date 05/25/16 Type of Consultation: Rheum Subjective Feelling better. Improved ambulation. Still with some pain. Tolerating INH. Objective Vital Signs Date Time Temp Pulse Resp B/P Pulse Ox O2 Delivery O2 Flow Rate FiO2 06/06/16 07:25 98.2 98 22 133/84 97 06/03/16 20:00 Room Air Intake and Output 06/05/16 06/05/16 06/06/16 15:00 23:00 07:00 Intake Total 1310 ml 690 ml Output Total 950 ml 900 ml Balance 360 ml -210 ml Exam Alert, Oriented, NAD. Skin without rash. HEENT. Conjunctival/subconjunctival erythema, somewhat improved but still present PERRL. Neck without lymphadenopathy. Chest clear Heart RRR Abd. Soft Ext. Without change. Minimal tenderness left ankle. Knees with minimal effusion, minimal tenderness. Better ROM. Hands without tenderness. Right shoulder with less tenderness and good ROM. Less tenderness at left TMJ. Other joints without synovitis. Neurol grossly intact Results/Medications Result Diagram: 06/06/16 0536 06/06/16 0523 Results 24 hrs Laboratory Tests Test 06/06/16 05:23 06/06/16 05:36 Sodium Level 134 L Potassium Level 3.6 Chloride Level 98 Carbon Dioxide Level 29 Anion Gap 11 Blood Urea Nitrogen 13 Creatinine 0.66 Glucose Level 132 # Calcium Level 9.9 White Blood Count 13.3 H Red Blood Count 4.40 L Hemoglobin 12.6 L Hematocrit 39.7 L Mean Corpuscular Volume 90.2 Mean Corpuscular Hemoglobin 28.6 L Mean Corpuscular Hemoglobin Concent 31.7 L Red Cell Distribution Width 12.7 Platelet Count 648 H Mean Platelet Volume 9.2 Neutrophils % 67.0 Lymphocytes % 16.8 Monocytes % 9.7 Eosinophils % 2.8 Basophils % 0.8 Nucleated Red Blood Cells % 0.0 Neutrophils # 8.9 H Lymphocytes # 2.2 Monocytes # 1.3 H Eosinophils # 0.4 Basophils # 0.1 Nucleated Red Blood Cells # 0.0 Medications Current Medications Ceftriaxone Sodium (Rocephin) 50 ml @ 100 mls/hr Q24H IVPB Last administered on 06/05/16 17:47; Admin Dose 100 MLS/HR; Start 05/26/16 at 18:00 Ondansetron HCl (Zofran Tab) 4 mg Q6H PRN PO NAUSEA AND/OR VOMITING; Start at 17:30 Acetaminophen (Tylenol Tab) 650 mg Q6H PRN PO PAIN LEVEL 1-3 OR FEVER Last administered on 05/28/16 00:11; Admin Dose 650 MG; Start 05/25/16 at 17:30 Acetaminophen (Tylenol Supp) 650 mg Q6H PRN [place] PAIN LEVEL 1-3 OR FEVER; Start 05/25/16 at 17:30 Docusate Sodium (Colace) 100 mg Q12H PRN PO CONSTIPATION Last administered on 11:54; Admin Dose 100 MG; Start 05/25/16 at 17:30 Ciprofloxacin HCl (Ciloxan 0.3% Oph Oint) 1 applic TID BOTH EYES Last administered on 06/06/16 13:36; Admin Dose 1 APPLIC; Start 05/26/16 at 21:00 Nystatin (Nystatin Susp) 5 ml QID PO Last administered on 06/06/16 13:36; Admin Dose 5 ML; Start 05/27/16 at 13:00 Acetaminophen/ Hydrocodone Bitart ([place] (5/325)) 1 tab Q4H PRN PO MODERATE PAIN LEVEL 4-6 Last administered on 06/06/16 02:53; Admin Dose 1 TAB; Start at 13:30 Morphine Sulfate (morphine) 2 mg Q4H PRN IV PAIN Last administered on 09:37; Admin Dose 2 MG; Start 05/28/16 at 14:00; Status Future Hold Naproxen (Naprosyn) 500 mg BID PO Last administered on 05/30/16 08:16; Admin Dose 500 MG; Start 05/28/16 at 14:20; Status Future Hold Pantoprazole 40 mg 40 mg DAILY@06 PO Last administered on 06/06/16 05:59; Admin Dose 40 MG; Start 05/30/16 at 06:00 Vancomycin HCl/ Sodium Chloride (Vancocin/NS) 150 ml @ 75 mls/hr Q8H IVPB Last administered on 06/06/16 13:36; Admin Dose 75 MLS/HR; Start 06/01/16 at 13: 00 Senna (Senokot) 2 tab BID PO Last administered on 06/06/16 08:14; Admin Dose 2 TAB; Start 06/02/16 at 21:00 Hydromorphone HCl (Dilaudid) 0.5 mg Q4H PRN IV PAIN Last administered on 14:08; Admin Dose 0.5 MG; Start 06/03/16 at 10:00 Prednisone (Prednisone) 20 mg DAILY PO Last administered on 06/06/16 08:14; Admin Dose 20 MG; Start 06/05/16 at 09:00 Isoniazid (Isoniazid) 300 mg DAILY PO Last administered on 06/06/16 08:14; Admin Dose 300 MG; Start 06/05/16 at 16:00 Pyridoxine HCl (Vitamin B6) 50 mg DAILY PO ; Start 06/07/16 at 09:00; Status UNV Assessment/Plan Chief Complaint/Hosp Course Ass. 1. Reactive Arthritis with positive HLA-B27, arthritis, uveitis. 2. Arthritis at knees, ankles, right hand and right shoulder improved, but now with some increased pain. . No evidence of infection there, or Gout. 3. Eye inflammation improved. 4. Mild Alk. Phos and transaminase elevation of unclear significance without recent change. Abd BRITTON and CT scan unremarkable 5. LATENT TUBERCULOSIS with positive Quant. Gold. Rec. 1. Will add Pyridoxine 50 mg daily as has started INH. 2. Continue Prednisone 20 mg q AM. 3. Continue Naproxen and PPI 4. Will need ophthalmology eval for possible steroid eye drops, or other. 5. Will likely need TNF medication eventually, but needs to be treated with 9 months of INH and Pyridoxine total, although can start TNF medication after a month. . Problems: JO ANN DOMINGUEZ MD Jun 06, 2016 17:04
[2016-06-06] MEDS: CEFTRIAXONE 1 GM/50 ML (PMX) 50 ML IVPB SCH (17:37)
--- NOTE | 2016-06-06 19:37 | CONS ---
Date/Time of Note Date/Time of Note DATE: 06/06/16 TIME: 19:36 Assessment/Plan Assessment/Plan Chief Complaint/Hosp Course SUBJECTIVE: The patient is alert, lying comfortably in bed, no fevers. ANTIMICROBIALS: 1. Vancomycin. 2. Rocephin. 3. INH PHYSICAL EXAMINATION: GENERAL: Well-nourished, well-developed man who is alert, in no distress. HEENT: Head atraumatic, normocephalic. Sclerae anicteric. Buccal mucosa pink. NECK: Supple. CHEST: Rise symmetrical. Breath sounds clear. HEART: S1, S2. ABDOMEN: Soft, bowel sounds present. EXTREMITIES: With resolving erythema and edema of left foot. ASSESSMENT: 1. Status post systemic inflammatory response syndrome with fevers and leukocytosis. 2. Left foot cellulitis==> improved. 3. Bilateral knees effusions, status post aspiration with cultures being negative/reactive arthritis. 4. Status post conjunctivitis. 5. Status post coagulase-negative staph bacteremia consistent with contaminant. 6. Oral thrush, improving on oral nystatin. 7. + QFT===> CT chest no acute findings 8. Elevated Alk phos==> asymptomatic PLAN: The patient remains stable. Will change abx to Doxycycline, continue INH , f/u rheumatology rec-s, monitor LFT. DW pt Problems: Consultation Date/Type/Reason Admit Date/Time May 25, 2016 at 11:13 Initial Consult Date 05/25/16 Type of Consultation: id Exam/Review of Systems Vital Signs Vitals Vital Signs Date Time Temp Pulse Resp B/P Pulse Ox O2 Delivery O2 Flow Rate FiO2 06/06/16 07:25 98.2 98 22 133/84 97 06/03/16 20:00 Room Air Intake and Output 06/05/16 06/05/16 06/06/16 15:00 23:00 07:00 Intake Total 1310 ml 690 ml Output Total 950 ml 900 ml Balance 360 ml -210 ml Results Result Diagram: 06/06/16 0536 06/06/16 0523 Results 24 hrs Laboratory Tests Test 06/06/16 05:23 06/06/16 05:36 Sodium Level 134 L Potassium Level 3.6 Chloride Level 98 Carbon Dioxide Level 29 Anion Gap 11 Blood Urea Nitrogen 13 Creatinine 0.66 Glucose Level 132 # Calcium Level 9.9 White Blood Count 13.3 H Red Blood Count 4.40 L Hemoglobin 12.6 L Hematocrit 39.7 L Mean Corpuscular Volume 90.2 Mean Corpuscular Hemoglobin 28.6 L Mean Corpuscular Hemoglobin Concent 31.7 L Red Cell Distribution Width 12.7 Platelet Count 648 H Mean Platelet Volume 9.2 Neutrophils % 67.0 Lymphocytes % 16.8 Monocytes % 9.7 Eosinophils % 2.8 Basophils % 0.8 Nucleated Red Blood Cells % 0.0 Neutrophils # 8.9 H Lymphocytes # 2.2 Monocytes # 1.3 H Eosinophils # 0.4 Basophils # 0.1 Nucleated Red Blood Cells # 0.0 Medications Medications Current Medications Ceftriaxone Sodium (Rocephin) 50 ml @ 100 mls/hr Q24H IVPB Last administered on 06/06/16 17:37; Admin Dose 100 MLS/HR; Start 05/26/16 at 18:00 Ondansetron HCl (Zofran Tab) 4 mg Q6H PRN PO NAUSEA AND/OR VOMITING; Start at 17:30 Acetaminophen (Tylenol Tab) 650 mg Q6H PRN PO PAIN LEVEL 1-3 OR FEVER Last administered on 05/28/16 00:11; Admin Dose 650 MG; Start 05/25/16 at 17:30 Acetaminophen (Tylenol Supp) 650 mg Q6H PRN [place] PAIN LEVEL 1-3 OR FEVER; Start 05/25/16 at 17:30 Docusate Sodium (Colace) 100 mg Q12H PRN PO CONSTIPATION Last administered on 11:54; Admin Dose 100 MG; Start 05/25/16 at 17:30 Ciprofloxacin HCl (Ciloxan 0.3% Oph Oint) 1 applic TID BOTH EYES Last administered on 06/06/16 13:36; Admin Dose 1 APPLIC; Start 05/26/16 at 21:00 Nystatin (Nystatin Susp) 5 ml QID PO Last administered on 06/06/16 13:36; Admin Dose 5 ML; Start 05/27/16 at 13:00 Acetaminophen/ Hydrocodone Bitart ([place] (5/325)) 1 tab Q4H PRN PO MODERATE PAIN LEVEL 4-6 Last administered on 06/06/16 02:53; Admin Dose 1 TAB; Start at 13:30 Morphine Sulfate (morphine) 2 mg Q4H PRN IV PAIN Last administered on 09:37; Admin Dose 2 MG; Start 05/28/16 at 14:00; Status Future Hold Naproxen (Naprosyn) 500 mg BID PO Last administered on 05/30/16 08:16; Admin Dose 500 MG; Start 05/28/16 at 14:20; Status Future Hold Pantoprazole 40 mg 40 mg DAILY@06 PO Last administered on 06/06/16 05:59; Admin Dose 40 MG; Start 05/30/16 at 06:00 Vancomycin HCl/ Sodium Chloride (Vancocin/NS) 150 ml @ 75 mls/hr Q8H IVPB Last administered on 06/06/16 13:36; Admin Dose 75 MLS/HR; Start 06/01/16 at 13: 00 Senna (Senokot) 2 tab BID PO Last administered on 06/06/16 08:14; Admin Dose 2 TAB; Start 06/02/16 at 21:00 Hydromorphone HCl (Dilaudid) 0.5 mg Q4H PRN IV PAIN Last administered on 17:38; Admin Dose 0.5 MG; Start 06/03/16 at 10:00 Prednisone (Prednisone) 20 mg DAILY PO Last administered on 06/06/16 08:14; Admin Dose 20 MG; Start 06/05/16 at 09:00 Isoniazid (Isoniazid) 300 mg DAILY PO Last administered on 06/06/16 08:14; Admin Dose 300 MG; Start 06/05/16 at 16:00 Pyridoxine HCl (Vitamin B6) 50 mg DAILY PO ; Start 06/07/16 at 09:00 ZEINA FITZPATRICK NP Jun 06, 2016 19:37
[2016-06-06 20:35] VITALS: BP 136/82; RESP 20
[2016-06-07] MEDS: POLYMYXIN/TRIMETHOPRIM 10 ML OPH BOTH EYES SCH ×6 (01:00→20:35)
[2016-06-07] MEDS: HYDROmorphONE 1 MG/ML SYG IV PRN ×5 (01:26→23:27)
[2016-06-07] MEDS: VANCOMYCIN 750 MG in SOD CHLORIDE 0.9% 150 ML IVPB SCH (04:28)
[2016-06-07] MEDS: HYDROCODONE/APAP (5/325) TAB PO PRN ×2 (04:28→14:37)
[2016-06-07] MEDS: PANTOPRAZOLE (EC) 40 MG TAB PO SCH (05:35)
[2016-06-07 06:15] LABS: ADD SCAN DIFF NO
[2016-06-07 06:32] LABS: BASOPHIL # 0.1 10^3/ul (0.0-0.1); BASOPHILS % 0.7 % (0.0-2.0); EOSINOPHILS # 0.4 10^3/ul (0.0-0.5); EOSINOPHILS % 3.1 % (0.0-7.0); HEMATOCRIT 42.1 % (42.0-52.0); HEMOGLOBIN 13.1 g/dl (14.0-18.0); LYMPHOCYTES # 2.1 10^3/ul (0.8-2.9); LYMPHOCYTES % 17.8 % (15.0-51.0); MEAN CORPUSCULAR HEMOGLOBIN 28.4 pg (29.0-33.0); MEAN CORPUSCULAR HGB CONC 31.1 g/dl (32.0-37.0); MEAN CORPUSCULAR VOLUME 91.1 fl (82.0-101.0); MONOCYTE # 1.2 10^3/ul (0.3-0.9); MONOCYTES % 9.9 % (0.0-11.0); NEUTROPHIL # 7.8 10^3/ul (1.6-7.5); NEUTROPHILS % 66.7 % (39.0-77.0); RED BLOOD COUNT 4.62 10^6/ul (4.70-6.10); RED CELL DISTRIBUTION WIDTH 13.1 % (11.5-14.5); WHITE BLOOD COUNT 11.6 10^3/ul (4.8-10.8)
[2016-06-07 06:41] LABS: POTASSIUM 3.8 mmol/L (3.5-5.1)
[2016-06-07 06:43] LABS: CREATININE 0.73 mg/dl (0.61-1.24)
[2016-06-07 06:44] LABS: CALCIUM 10.1 mg/dl (8.4-10.2)
[2016-06-07 07:11] LABS: PLATELET COUNT 677 10^3/UL (140-415)
[2016-06-07 07:16] VITALS: BP 150/92; RESP 20
[2016-06-07] MEDS: NYSTATIN SUSP 5 ML CUP PO SCH ×4 (09:00→20:34)
[2016-06-07] MEDS: CIPROFLOXACIN 0.3% 3.5 GM OPH OINT BOTH EYES SCH ×3 (09:01→20:34)
[2016-06-07] MEDS: ISONIAZID 300 MG TAB PO SCH (09:01)
[2016-06-07] MEDS: PYRIDOXINE 50 MG TAB PO SCH (09:01)
[2016-06-07] MEDS: SENNA TAB PO SCH ×2 (09:02→20:35)
[2016-06-07] MEDS: predniSONE 20 MG TAB PO SCH (09:02)
--- NOTE | 2016-06-07 09:06 | PN ---
Date/Time of Note Date/Time of Note DATE: 06/07/16 TIME: 09:02 Assessment/Plan VTE Prophylaxis VTE Prophylaxis Intervention: SCD's Lines/Catheters [facility]from [facility] Urinary Cath still in place: No Assessment/Plan Chief Complaint/Hosp Course Assessment/Plan 45M with: 1. 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 s/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 by Fermenting Cellar Dropper - fluid cell count grew [id number] - reactive, fluid cx negative. Orthopedic Consult evaluated pt, no surgical intervention needed. - per Rheum, continue 20 mg Prednisone for now, monitor weight bearing status. - per Rheum, consider ophthalmology eval for possible steroid eye drops, or other. - continue abx drops for eyes. - continue IV abx, f/u ID rec's. - per rheum, will likely need TNF meds as well in one month as outpt. 2. + quant gold TB test with acute transaminitis with elevated total bilirubin - US abdomen- negative for liver cirrhosis, liver profile showed still elevated alk phos. (quant gold TB test was positive). No findings to suggest tuberculosis on CT chest. - per discussion with ID team, on INH now - needs 9 months - monitor LFT's 3. Blood culture positive with staphylococcus - contaminant? - continue IV abx, f/u ID rec's 4. Iritis - see # 1 5. Bright red blood per rectum - concerned about Lower GI bleeding s/p GI consult yesterday, 7 days ago. Stool For Occult blood is positive, but H/H stable - pt refusing colonoscopy. - monitor CBC, f/u GI rec's 6. GI ppx - PPI Problems: Subjective 24 Hr Interval Summary Free Text/Dictation Pt still with some pain smpts. Exam/Review of Systems Vital Signs Vitals Vital Signs Date Time Temp Pulse Resp B/P Pulse Ox O2 Delivery O2 Flow Rate FiO2 06/07/16 07:16 98.8 102 20 150/92 96 06/03/16 20:00 Room Air Intake and Output 06/06/16 06/06/16 06/07/16 15:00 23:00 07:00 Intake Total 150 ml 890 ml 1100 ml Output Total 1400 ml Balance 150 ml 890 ml -300 ml Exam GENERAL APPEARANCE: lying in bed comfortably without any distress; awake, alert , oriented, able to answer questions HEENT: PERRL/EOMI. Conjunctival/subconjunctival erythema somewhat improved but still present RESPIRATORY: Effort is normal. Clear to auscultation bilaterally. CARDIOVASCULAR: Normal S1, S2. Regular rhythm and rate. No murmur, no bruits , no edema. Peripheral pulses, radial pulses palpable. Cap refill is normal. CHEST: Normal expansion of thorax during inspiration. GASTROINTESTINAL: Abdomen is soft, nontender, not distended. Bowel sounds present. No guarding, no rebound. M/S: Ext. Less erythema left ankle. Minimal tenderness. Knees with less effusion, mild tenderness. Better ROM. NEUROLOGIC: Cranial nerves II through XII grossly intact Results Result Diagram: 06/07/1652506/07/16525 Results 24 hrs Laboratory Tests Test 06/07/16 05:26 White Blood Count 11.6 H Red Blood Count 4.62 L Hemoglobin 13.1 L Hematocrit 42.1 Mean Corpuscular Volume 91.1 Mean Corpuscular Hemoglobin 28.4 L Mean Corpuscular Hemoglobin Concent 31.1 L Red Cell Distribution Width 13.1 Platelet Count 677 H Mean Platelet Volume 9.0 Neutrophils % 66.7 Lymphocytes % 17.8 Monocytes % 9.9 Eosinophils % 3.1 Basophils % 0.7 Nucleated Red Blood Cells % 0.0 Neutrophils # 7.8 H Lymphocytes # 2.1 Monocytes # 1.2 H Eosinophils # 0.4 Basophils # 0.1 Nucleated Red Blood Cells # 0.0 Sodium Level 138 Potassium Level 3.8 Chloride Level 94 L Carbon Dioxide Level 31 Anion Gap 17 H Blood Urea Nitrogen 14 Creatinine 0.73 Glucose Level 139 Calcium Level 10.1 Medications Medications Current Medications Ceftriaxone Sodium (Rocephin) 50 ml @ 100 mls/hr Q24H IVPB Last administered on 06/06/16 17:37; Admin Dose 100 MLS/HR; Start 05/26/16 at 18:00 Ondansetron HCl (Zofran Tab) 4 mg Q6H PRN PO NAUSEA AND/OR VOMITING; Start at 17:30 Acetaminophen (Tylenol Tab) 650 mg Q6H PRN PO PAIN LEVEL 1-3 OR FEVER Last administered on 05/28/16 00:11; Admin Dose 650 MG; Start 05/25/16 at 17:30 Acetaminophen (Tylenol Supp) 650 mg Q6H PRN [place] PAIN LEVEL 1-3 OR FEVER; Start 05/25/16 at 17:30 Docusate Sodium (Colace) 100 mg Q12H PRN PO CONSTIPATION Last administered on 11:54; Admin Dose 100 MG; Start 05/25/16 at 17:30 Ciprofloxacin HCl (Ciloxan 0.3% Oph Oint) 1 applic TID BOTH EYES Last administered on 06/06/16 20:23; Admin Dose 1 APPLIC; Start 05/26/16 at 21:00 Nystatin (Nystatin Susp) 5 ml QID PO Last administered on 06/06/16 20:23; Admin Dose 5 ML; Start 05/27/16 at 13:00 Acetaminophen/ Hydrocodone Bitart ([place] (5/325)) 1 tab Q4H PRN PO MODERATE PAIN LEVEL 4-6 Last administered on 06/07/16 04:28; Admin Dose 1 TAB; Start at 13:30 Morphine Sulfate (morphine) 2 mg Q4H PRN IV PAIN Last administered on 09:37; Admin Dose 2 MG; Start 05/28/16 at 14:00; Status Future Hold Naproxen (Naprosyn) 500 mg BID PO Last administered on 05/30/16 08:16; Admin Dose 500 MG; Start 05/28/16 at 14:20; Status Future Hold Pantoprazole 40 mg 40 mg DAILY@06 PO Last administered on 06/07/16 05:35; Admin Dose 40 MG; Start 05/30/16 at 06:00 Vancomycin HCl/ Sodium Chloride (Vancocin/NS) 150 ml @ 75 mls/hr Q8H IVPB Last administered on 06/07/16 04:28; Admin Dose 75 MLS/HR; Start 06/01/16 at 13: 00 Senna (Senokot) 2 tab BID PO Last administered on 06/06/16 20:23; Admin Dose 2 TAB; Start 06/02/16 at 21:00 Hydromorphone HCl (Dilaudid) 0.5 mg Q4H PRN IV PAIN Last administered on 01:26; Admin Dose 0.5 MG; Start 06/03/16 at 10:00 Prednisone (Prednisone) 20 mg DAILY PO Last administered on 06/06/16 08:14; Admin Dose 20 MG; Start 06/05/16 at 09:00 Isoniazid (Isoniazid) 300 mg DAILY PO Last administered on 06/06/16 08:14; Admin Dose 300 MG; Start 06/05/16 at 16:00 Pyridoxine HCl (Vitamin B6) 50 mg DAILY PO ; Start 06/07/16 at 09:00 DARRICK SAPP Jun 07, 2016 09:06
--- NOTE | 2016-06-07 17:32 | CONS ---
Date/Time of Note Date/Time of Note DATE: 06/07/16 TIME: 17:31 Assessment/Plan Assessment/Plan Chief Complaint/Hosp Course SUBJECTIVE: The patient is alert, c/p L jaw and L foot pain, lying comfortably in bed, no fevers. ANTIMICROBIALS: 1. Doxycycline 2. INH PHYSICAL EXAMINATION: GENERAL: Well-nourished, well-developed [place] man who is alert, in no distress. HEENT: Head atraumatic, normocephalic. Sclerae anicteric. Buccal mucosa pink. NECK: Supple. CHEST: Rise symmetrical. Breath sounds clear. HEART: S1, S2. ABDOMEN: Soft, bowel sounds present. EXTREMITIES: With resolving erythema and edema of left foot. ASSESSMENT: 1. Status post systemic inflammatory response syndrome with fevers and leukocytosis. 2. Left foot cellulitis==> improved. 3. Bilateral knees effusions, status post aspiration with cultures being negative/reactive arthritis. 4. Status post conjunctivitis. 5. Status post coagulase-negative staph bacteremia consistent with contaminant. 6. Oral thrush, improving on oral nystatin. 7. + QFT===> CT chest no acute findings 8. Elevated Alk phos==> asymptomatic PLAN: The patient remains stable. continue Doxycycline, continue INH, f/u rheumatology rec-s, monitor LFT. DW pt Problems: Consultation Date/Type/Reason Admit Date/Time May 25, 2016 at 11:13 Initial Consult Date 05/25/16 Type of Consultation: id Exam/Review of Systems Vital Signs Vitals Vital Signs Date Time Temp Pulse Resp B/P Pulse Ox O2 Delivery O2 Flow Rate FiO2 06/07/16 07:16 98.8 102 20 150/92 96 06/03/16 20:00 Room Air Intake and Output 06/06/16 06/06/16 06/07/16 15:00 23:00 07:00 Intake Total 150 ml 890 ml 1100 ml Output Total 1400 ml Balance 150 ml 890 ml -300 ml Results Result Diagram: 06/07/16 0526 06/07/16 0526 Results 24 hrs Laboratory Tests Test 06/07/16 05:26 White Blood Count 11.6 H Red Blood Count 4.62 L Hemoglobin 13.1 L Hematocrit 42.1 Mean Corpuscular Volume 91.1 Mean Corpuscular Hemoglobin 28.4 L Mean Corpuscular Hemoglobin Concent 31.1 L Red Cell Distribution Width 13.1 Platelet Count 677 H Mean Platelet Volume 9.0 Neutrophils % 66.7 Lymphocytes % 17.8 Monocytes % 9.9 Eosinophils % 3.1 Basophils % 0.7 Nucleated Red Blood Cells % 0.0 Neutrophils # 7.8 H Lymphocytes # 2.1 Monocytes # 1.2 H Eosinophils # 0.4 Basophils # 0.1 Nucleated Red Blood Cells # 0.0 Sodium Level 138 Potassium Level 3.8 Chloride Level 94 L Carbon Dioxide Level 31 Anion Gap 17 H Blood Urea Nitrogen 14 Creatinine 0.73 Glucose Level 139 Calcium Level 10.1 Medications Medications Current Medications Ondansetron HCl (Zofran Tab) 4 mg Q6H PRN PO NAUSEA AND/OR VOMITING; Start at 17:30 Acetaminophen (Tylenol Tab) 650 mg Q6H PRN PO PAIN LEVEL 1-3 OR FEVER Last administered on 05/28/16 00:11; Admin Dose 650 MG; Start 05/25/16 at 17:30 Acetaminophen (Tylenol Supp) 650 mg Q6H PRN [place] PAIN LEVEL 1-3 OR FEVER; Start 05/25/16 at 17:30 Docusate Sodium (Colace) 100 mg Q12H PRN PO CONSTIPATION Last administered on 11:54; Admin Dose 100 MG; Start 05/25/16 at 17:30 Ciprofloxacin HCl (Ciloxan 0.3% Oph Oint) 1 applic TID BOTH EYES Last administered on 06/07/16 13:20; Admin Dose 1 APPLIC; Start 05/26/16 at 21:00 Nystatin (Nystatin Susp) 5 ml QID PO Last administered on 06/06/16 20:23; Admin Dose 5 ML; Start 05/27/16 at 13:00 Acetaminophen/ Hydrocodone Bitart ([place] (5/325)) 1 tab Q4H PRN PO MODERATE PAIN LEVEL 4-6 Last administered on 06/07/16 14:37; Admin Dose 1 TAB; Start at 13:30 Morphine Sulfate (morphine) 2 mg Q4H PRN IV PAIN Last administered on 09:37; Admin Dose 2 MG; Start 05/28/16 at 14:00; Status Future Hold Naproxen (Naprosyn) 500 mg BID PO Last administered on 05/30/16 08:16; Admin Dose 500 MG; Start 05/28/16 at 14:20; Status Future Hold Pantoprazole (Protonix Tab) 40 mg DAILY@06 PO Last administered on 06/07/16 05: 35; Admin Dose 40 MG; Start 05/30/16 at 06:00 Senna (Senokot) 2 tab BID PO Last administered on 06/07/16 09:02; Admin Dose 2 TAB; Start 06/02/16 at 21:00 Hydromorphone HCl (Dilaudid) 0.5 mg Q4H PRN IV PAIN Last administered on 13:21; Admin Dose 0.5 MG; Start 06/03/16 at 10:00 Prednisone (Prednisone) 20 mg DAILY PO Last administered on 06/07/16 09:02; Admin Dose 20 MG; Start 06/05/16 at 09:00 Isoniazid (Isoniazid) 300 mg DAILY PO Last administered on 06/07/16 09:01; Admin Dose 300 MG; Start 06/05/16 at 16:00 Pyridoxine HCl (Vitamin B6) 50 mg DAILY PO Last administered on 06/07/16 09:01 ; Admin Dose 50 MG; Start 06/07/16 at 09:00 Doxycycline Hyclate (Vibramycin) 100 mg BID PO ; Start 06/07/16 at 21:00 ZEINA FITZPATRICK NP Jun 07, 2016 17:32
[2016-06-07 19:28] VITALS: BP 137/87; RESP 16
[2016-06-07] MEDS: DOXYCYCLINE 100 MG TAB PO SCH (20:35)
[2016-06-08] MEDS: POLYMYXIN/TRIMETHOPRIM 10 ML OPH BOTH EYES SCH ×6 (01:00→20:36)
[2016-06-08] MEDS: HYDROCODONE/APAP (5/325) TAB PO PRN ×4 (03:17→22:10)
[2016-06-08] MEDS: PANTOPRAZOLE (EC) 40 MG TAB PO SCH (05:17)
[2016-06-08 05:25] LABS: ADD SCAN DIFF NO
[2016-06-08 05:31] LABS: BASOPHIL # 0.1 10^3/ul (0.0-0.1); BASOPHILS % 0.7 % (0.0-2.0); EOSINOPHILS # 0.3 10^3/ul (0.0-0.5); EOSINOPHILS % 2.4 % (0.0-7.0); HEMATOCRIT 40.9 % (42.0-52.0); HEMOGLOBIN 13.4 g/dl (14.0-18.0); LYMPHOCYTES # 2.4 10^3/ul (0.8-2.9); LYMPHOCYTES % 19.6 % (15.0-51.0); MEAN CORPUSCULAR HGB CONC 32.8 g/dl (32.0-37.0); MEAN CORPUSCULAR VOLUME 88.5 fl (82.0-101.0); MEAN PLATELET VOLUME 8.7 fl (7.4-10.4); MONOCYTE # 1.3 10^3/ul (0.3-0.9); MONOCYTES % 10.4 % (0.0-11.0); NEUTROPHILS % 65.6 % (39.0-77.0); RED BLOOD COUNT 4.62 10^6/ul (4.70-6.10); RED CELL DISTRIBUTION WIDTH 12.7 % (11.5-14.5); WHITE BLOOD COUNT 12.2 10^3/ul (4.8-10.8)
[2016-06-08 05:37] LABS: PLATELET COUNT 694 10^3/UL (140-415)
[2016-06-08 05:42] LABS: POTASSIUM 3.5 mmol/L (3.5-5.1)
[2016-06-08 05:44] LABS: CREATININE 0.66 mg/dl (0.61-1.24)
[2016-06-08 05:45] LABS: CALCIUM 10.3 mg/dl (8.4-10.2)
[2016-06-08 07:16] VITALS: BP 130/84; RESP 18
[2016-06-08] MEDS: CIPROFLOXACIN 0.3% 3.5 GM OPH OINT BOTH EYES SCH ×3 (08:17→20:36)
[2016-06-08] MEDS: SENNA TAB PO SCH ×2 (08:18→20:36)
[2016-06-08] MEDS: DOXYCYCLINE 100 MG TAB PO SCH ×2 (08:19→20:35)
[2016-06-08] MEDS: PYRIDOXINE 50 MG TAB PO SCH (08:19)
[2016-06-08] MEDS: predniSONE 20 MG TAB PO SCH (08:20)
[2016-06-08] MEDS: ISONIAZID 300 MG TAB PO SCH (08:20)
[2016-06-08] MEDS: NYSTATIN SUSP 5 ML CUP PO SCH ×4 (08:23→20:36)
[2016-06-08] MEDS: DOCUSATE SODIUM 100 MG CAP PO PRN (11:31)
[2016-06-08] MEDS: HYDROmorphONE 1 MG/ML SYG IV PRN (11:32)
--- NOTE | 2016-06-08 13:25 | CONS ---
Date/Time of Note Date/Time of Note DATE: 06/08/16 TIME: 13:22 Consult Date/Type/Reason Admit Date/Time May 25, 2016 at 11:13 Initial Consult Date 05/25/16 Type of Consultation: Rheum Subjective No new complaints. Less pain overall. Mild with walking. No new other complaints. Objective Vital Signs Date Time Temp Pulse Resp B/P Pulse Ox O2 Delivery O2 Flow Rate FiO2 06/08/16 07:16 98.2 105 18 130/84 98 Intake and Output 06/07/16 06/07/16 06/08/16 15:00 23:00 07:00 Intake Total 720 ml 800 ml Output Total 2725 ml 1000 ml Balance -2005 ml -200 ml Exam Alert, Oriented, NAD. Skin without rash. HEENT. Conjunctiva clear Neck without lymphadenopathy. Chest clear Heart RRR Abd. Soft Ext. Without change. Minimal tenderness left ankle. Knees with minimal effusion, minimal tenderness. Better ROM. Hands without tenderness. Right shoulder with less tenderness and good ROM. Less tenderness at left TMJ. Other joints without synovitis. Neurol grossly intact Results/Medications Result Diagram: 06/08/16 0505 06/08/16 0450 Results 24 hrs Laboratory Tests Test 06/08/16 04:50 06/08/16 05:05 Sodium Level 136 Potassium Level 3.5 Chloride Level 93 L Carbon Dioxide Level 29 Anion Gap 18 H Blood Urea Nitrogen 14 Creatinine 0.66 Glucose Level 164 Calcium Level 10.3 H White Blood Count 12.2 H Red Blood Count 4.62 L Hemoglobin 13.4 L Hematocrit 40.9 L Mean Corpuscular Volume 88.5 Mean Corpuscular Hemoglobin 29.0 Mean Corpuscular Hemoglobin Concent 32.8 Red Cell Distribution Width 12.7 Platelet Count 694 H Mean Platelet Volume 8.7 Neutrophils % 65.6 Lymphocytes % 19.6 Monocytes % 10.4 Eosinophils % 2.4 Basophils % 0.7 Nucleated Red Blood Cells % 0.0 Neutrophils # 8.0 H Lymphocytes # 2.4 Monocytes # 1.3 H Eosinophils # 0.3 Basophils # 0.1 Nucleated Red Blood Cells # 0.0 Medications Current Medications Ondansetron HCl (Zofran Tab) 4 mg Q6H PRN PO NAUSEA AND/OR VOMITING; Start at 17:30 Acetaminophen (Tylenol Tab) 650 mg Q6H PRN PO PAIN LEVEL 1-3 OR FEVER Last administered on 05/28/16 00:11; Admin Dose 650 MG; Start 05/25/16 at 17:30 Acetaminophen (Tylenol Supp) 650 mg Q6H PRN [place] PAIN LEVEL 1-3 OR FEVER; Start 05/25/16 at 17:30 Docusate Sodium (Colace) 100 mg Q12H PRN PO CONSTIPATION Last administered on 11:31; Admin Dose 100 MG; Start 05/25/16 at 17:30 Ciprofloxacin HCl (Ciloxan 0.3% Oph Oint) 1 applic TID BOTH EYES Last administered on 06/08/16 12:08; Admin Dose 1 APPLIC; Start 05/26/16 at 21:00 Nystatin (Nystatin Susp) 5 ml QID PO Last administered on 06/07/16 20:34; Admin Dose 5 ML; Start 05/27/16 at 13:00 Acetaminophen/ Hydrocodone Bitart ([place] (5/325)) 1 tab Q4H PRN PO MODERATE PAIN LEVEL 4-6 Last administered on 06/08/16 07:43; Admin Dose 1 TAB; Start at 13:30 Morphine Sulfate (morphine) 2 mg Q4H PRN IV PAIN Last administered on 09:37; Admin Dose 2 MG; Start 05/28/16 at 14:00; Status Future Hold Naproxen (Naprosyn) 500 mg BID PO Last administered on 05/30/16 08:16; Admin Dose 500 MG; Start 05/28/16 at 14:20; Status Future Hold Pantoprazole (Protonix Tab) 40 mg DAILY@06 PO Last administered on 06/08/16 05: 17; Admin Dose 40 MG; Start 05/30/16 at 06:00 Senna (Senokot) 2 tab BID PO Last administered on 06/08/16 08:18; Admin Dose 2 TAB; Start 06/02/16 at 21:00 Hydromorphone HCl (Dilaudid) 0.5 mg Q4H PRN IV PAIN Last administered on 11:32; Admin Dose 0.5 MG; Start 06/03/16 at 10:00 Prednisone (Prednisone) 20 mg DAILY PO Last administered on 06/08/16 08:20; Admin Dose 20 MG; Start 06/05/16 at 09:00 Isoniazid (Isoniazid) 300 mg DAILY PO Last administered on 06/08/16 08:20; Admin Dose 300 MG; Start 06/05/16 at 16:00 Pyridoxine HCl (Vitamin B6) 50 mg DAILY PO Last administered on 06/08/16 08:19 ; Admin Dose 50 MG; Start 06/07/16 at 09:00 Doxycycline Hyclate (Vibramycin) 100 mg BID PO Last administered on 06/08/16 08 :19; Admin Dose 100 MG; Start 06/07/16 at 21:00 Assessment/Plan Chief Complaint/Hosp Course Ass. 1. Reactive Arthritis with positive HLA-B27, arthritis, uveitis. 2. Arthritis at knees, ankles, right hand and right shoulder improved, but now with some increased pain. . No evidence of infection there, or Gout. 3. Eye inflammation improved. 4. Mild Alk. Phos and transaminase elevation of unclear significance without recent change. Abd [place] and CT scan unremarkable 5. LATENT TUBERCULOSIS with positive Quant. Gold. Rec. 1. Continue INH and Pyridoxine 2. Continue Prednisone 20 mg q AM. 3. Continue Naproxen and PPI 4. Will need ophthalmology eval for possible steroid eye drops, or other. 5. Will likely need TNF medication eventually, but needs to be treated with 9 months of INH and Pyridoxine total, although can start TNF medication after a month. . Problems: JO ANN DOMINGUEZ MD Jun 08, 2016 13:25
--- NOTE | 2016-06-08 14:00 | CONS ---
Date/Time of Note Date/Time of Note DATE: 06/08/16 TIME: 13:59 Assessment/Plan Assessment/Plan Chief Complaint/Hosp Course SUBJECTIVE: The patient is alert, lying comfortably in bed, no fevers. ANTIMICROBIALS: 1. Doxycycline 2. INH PHYSICAL EXAMINATION: GENERAL: Well-nourished, well-developed man who is alert, in no distress. HEENT: Head atraumatic, normocephalic. Sclerae anicteric. Buccal mucosa pink. NECK: Supple. CHEST: Rise symmetrical. Breath sounds clear. HEART: S1, S2. ABDOMEN: Soft, bowel sounds present. EXTREMITIES: With resolving erythema and edema of left foot. ASSESSMENT: 1. Status post systemic inflammatory response syndrome with fevers and leukocytosis. 2. Left foot cellulitis==> resolved. 3. Bilateral knees effusions, status post aspiration with cultures being negative/reactive arthritis. 4. Status post conjunctivitis. 5. Status post coagulase-negative staph bacteremia consistent with contaminant. 6. Oral thrush, improving on oral nystatin. 7. + QFT===> CT chest no acute findings 8. Elevated Alk phos==> asymptomatic PLAN: The patient remains stable, dc Doxycycline in am, continue INH for 9 months, f/u rheumatology rec-s, monitor LFT. DW pt Problems: Consultation Date/Type/Reason Admit Date/Time May 25, 2016 at 11:13 Initial Consult Date 05/25/16 Type of Consultation: id Exam/Review of Systems Vital Signs Vitals Vital Signs Date Time Temp Pulse Resp B/P Pulse Ox O2 Delivery O2 Flow Rate FiO2 06/08/16 07:16 98.2 105 18 130/84 98 Intake and Output 06/07/16 06/07/16 06/08/16 15:00 23:00 07:00 Intake Total 720 ml 800 ml Output Total 2725 ml 1000 ml Balance -2004 ml -200 ml Results Result Diagram: 06/08/16 0505 06/08/16 0450 Results 24 hrs Laboratory Tests Test 06/08/16 04:50 06/08/16 05:05 Sodium Level 136 Potassium Level 3.5 Chloride Level 93 L Carbon Dioxide Level 29 Anion Gap 18 H Blood Urea Nitrogen 14 Creatinine 0.66 Glucose Level 164 Calcium Level 10.3 H White Blood Count 12.2 H Red Blood Count 4.62 L Hemoglobin 13.4 L Hematocrit 40.9 L Mean Corpuscular Volume 88.5 Mean Corpuscular Hemoglobin 29.0 Mean Corpuscular Hemoglobin Concent 32.8 Red Cell Distribution Width 12.7 Platelet Count 694 H Mean Platelet Volume 8.7 Neutrophils % 65.6 Lymphocytes % 19.6 Monocytes % 10.4 Eosinophils % 2.4 Basophils % 0.7 Nucleated Red Blood Cells % 0.0 Neutrophils # 8.0 H Lymphocytes # 2.4 Monocytes # 1.3 H Eosinophils # 0.3 Basophils # 0.1 Nucleated Red Blood Cells # 0.0 Medications Medications Current Medications Ondansetron HCl (Zofran Tab) 4 mg Q6H PRN PO NAUSEA AND/OR VOMITING; Start at 17:30 Acetaminophen (Tylenol Tab) 650 mg Q6H PRN PO PAIN LEVEL 1-3 OR FEVER Last administered on 05/28/16 00:11; Admin Dose 650 MG; Start 05/25/16 at 17:30 Acetaminophen (Tylenol Supp) 650 mg Q6H PRN [place] PAIN LEVEL 1-3 OR FEVER; Start 05/25/16 at 17:30 Docusate Sodium (Colace) 100 mg Q12H PRN PO CONSTIPATION Last administered on 11:31; Admin Dose 100 MG; Start 05/25/16 at 17:30 Ciprofloxacin HCl (Ciloxan 0.3% Oph Oint) 1 applic TID BOTH EYES Last administered on 06/08/16 12:08; Admin Dose 1 APPLIC; Start 05/26/16 at 21:00 Nystatin (Nystatin Susp) 5 ml QID PO Last administered on 06/07/16 20:34; Admin Dose 5 ML; Start 05/27/16 at 13:00 Acetaminophen/ Hydrocodone Bitart ([place] (5/325)) 1 tab Q4H PRN PO MODERATE PAIN LEVEL 4-6 Last administered on 06/08/16 07:43; Admin Dose 1 TAB; Start at 13:30 Morphine Sulfate (morphine) 2 mg Q4H PRN IV PAIN Last administered on 09:37; Admin Dose 2 MG; Start 05/28/16 at 14:00; Status Future Hold Naproxen (Naprosyn) 500 mg BID PO Last administered on 05/30/16 08:16; Admin Dose 500 MG; Start 05/28/16 at 14:20; Status Future Hold Pantoprazole (Protonix Tab) 40 mg DAILY@06 PO Last administered on 06/08/16 05: 17; Admin Dose 40 MG; Start 05/30/16 at 06:00 Senna (Senokot) 2 tab BID PO Last administered on 06/08/16 08:18; Admin Dose 2 TAB; Start 06/02/16 at 21:00 Hydromorphone HCl (Dilaudid) 0.5 mg Q4H PRN IV PAIN Last administered on 11:32; Admin Dose 0.5 MG; Start 06/03/16 at 10:00 Prednisone (Prednisone) 20 mg DAILY PO Last administered on 06/08/16 08:20; Admin Dose 20 MG; Start 06/05/16 at 09:00 Isoniazid (Isoniazid) 300 mg DAILY PO Last administered on 06/08/16 08:20; Admin Dose 300 MG; Start 06/05/16 at 16:00 Pyridoxine HCl (Vitamin B6) 50 mg DAILY PO Last administered on 06/08/16 08:19 ; Admin Dose 50 MG; Start 06/07/16 at 09:00 Doxycycline Hyclate (Vibramycin) 100 mg BID PO Last administered on 06/08/16 08 :19; Admin Dose 100 MG; Start 06/07/16 at 21:00 ZEINA FITZPATRICK NP Jun 08, 2016 14:00
--- NOTE | 2016-06-08 15:22 | PN ---
Date/Time of Note Date/Time of Note DATE: 06/08/16 TIME: 15:18 Assessment/Plan VTE Prophylaxis VTE Prophylaxis Intervention: SCD's Lines/Catheters IV [facility]from [facility] Urinary Cath still in place: No Assessment/Plan Chief Complaint/Hosp Course Assessment/Plan 45M with: 1. 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 s/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 by Talent Manager - fluid cell count grew [id number] - reactive, fluid cx negative. Orthopedic Consult evaluated pt, no surgical intervention needed. - per Rheum, continue 20 mg Prednisone for now, monitor weight bearing status. - per Rheum, consider ophthalmology eval for possible steroid eye drops, or other. - continue abx drops for eyes. - continue IV abx, f/u ID rec's. - per rheum, will likely need TNF meds as well in one month as outpt. 2. + quant gold TB test with acute transaminitis with elevated total bilirubin - US abdomen- negative for liver cirrhosis, liver profile showed still elevated alk phos. (quant gold TB test was positive). No findings to suggest tuberculosis on CT chest. - per discussion with ID team, on INH now - needs 9 months - monitor LFT's 3. Blood culture positive with staphylococcus - contaminant? - continue IV abx, f/u ID rec's 4. Iritis - see # 1 5. Bright red blood per rectum - concerned about Lower GI bleeding s/p GI consult yesterday, 7 days ago. Stool For Occult blood is positive, but H/H stable - pt refusing colonoscopy. - monitor CBC, f/u GI rec's 6. GI ppx - PPI Plan to discharge home tomorrow if cleared by records management specialist assistant site manager for home health for physical therapy Problems: Subjective 24 Hr Interval Summary Free Text/Dictation Patient complains of having generalized weakness Difficulty with ambulation although he is able to ambulate greater than 100 feet with a walker Exam/Review of Systems Vital Signs Vitals Vital Signs Date Time Temp Pulse Resp B/P Pulse Ox O2 Delivery O2 Flow Rate FiO2 06/08/16 07:16 98.2 105 18 130/84 98 Intake and Output 06/07/16 06/07/16 06/08/16 15:00 23:00 07:00 Intake Total 720 ml 800 ml Output Total 2725 ml 1000 ml Balance -2005 ml -200 ml Exam General: The patient is underweight, Not in acute distress. HEENT: Atraumatic, normocephalic. The pupils are equal and round . Neck: Supple with full range of motion. Chest: Normal expansion of the thorax during inspiration Lungs: Clear to auscultation bilaterally Heart: Normal S1-S2, Regular rhythm and rate. Abdomen: Soft , nontender, nondistended , bowel sounds are present. Extremities: Normal to inspection, no edema no cyanosis Neurologic: Normal mental status,The patient is awake, alert and oriented . Results Result Diagram: 06/08/16 0505 06/08/16 0450 Results 24 hrs Laboratory Tests Test 06/08/16 04:50 06/08/16 05:05 Sodium Level 136 Potassium Level 3.5 Chloride Level 93 L Carbon Dioxide Level 29 Anion Gap 18 H Blood Urea Nitrogen 14 Creatinine 0.66 Glucose Level 164 Calcium Level 10.3 H White Blood Count 12.2 H Red Blood Count 4.62 L Hemoglobin 13.4 L Hematocrit 40.9 L Mean Corpuscular Volume 88.5 Mean Corpuscular Hemoglobin 29.0 Mean Corpuscular Hemoglobin Concent 32.8 Red Cell Distribution Width 12.7 Platelet Count 694 H Mean Platelet Volume 8.7 Neutrophils % 65.6 Lymphocytes % 19.6 Monocytes % 10.4 Eosinophils % 2.4 Basophils % 0.7 Nucleated Red Blood Cells % 0.0 Neutrophils # 8.0 H Lymphocytes # 2.4 Monocytes # 1.3 H Eosinophils # 0.3 Basophils # 0.1 Nucleated Red Blood Cells # 0.0 Medications Medications Current Medications Ondansetron HCl (Zofran Tab) 4 mg Q6H PRN PO NAUSEA AND/OR VOMITING; Start at 17:30 Acetaminophen (Tylenol Tab) 650 mg Q6H PRN PO PAIN LEVEL 1-3 OR FEVER Last administered on 05/28/16 00:11; Admin Dose 650 MG; Start 05/25/16 at 17:30 Acetaminophen (Tylenol Supp) 650 mg Q6H PRN [place] PAIN LEVEL 1-3 OR FEVER; Start 05/25/16 at 17:30 Docusate Sodium (Colace) 100 mg Q12H PRN PO CONSTIPATION Last administered on 11:31; Admin Dose 100 MG; Start 05/25/16 at 17:30 Ciprofloxacin HCl (Ciloxan 0.3% Oph Oint) 1 applic TID BOTH EYES Last administered on 06/08/16 12:08; Admin Dose 1 APPLIC; Start 05/26/16 at 21:00 Nystatin (Nystatin Susp) 5 ml QID PO Last administered on 06/07/16 20:34; Admin Dose 5 ML; Start 05/27/16 at 13:00 Acetaminophen/ Hydrocodone Bitart ([place] (5/325)) 1 tab Q4H PRN PO MODERATE PAIN LEVEL 4-6 Last administered on 06/08/16 15:15; Admin Dose 1 TAB; Start at 13:30 Morphine Sulfate (morphine) 2 mg Q4H PRN IV PAIN Last administered on 09:37; Admin Dose 2 MG; Start 05/28/16 at 14:00; Status Future Hold Naproxen (Naprosyn) 500 mg BID PO Last administered on 05/30/16 08:16; Admin Dose 500 MG; Start 05/28/16 at 14:20; Status Future Hold Pantoprazole (Protonix Tab) 40 mg DAILY@06 PO Last administered on 06/08/16 05: 17; Admin Dose 40 MG; Start 05/30/16 at 06:00 Senna (Senokot) 2 tab BID PO Last administered on 06/08/16 08:18; Admin Dose 2 TAB; Start 06/02/16 at 21:00 Hydromorphone HCl (Dilaudid) 0.5 mg Q4H PRN IV PAIN Last administered on 11:32; Admin Dose 0.5 MG; Start 06/03/16 at 10:00 Prednisone (Prednisone) 20 mg DAILY PO Last administered on 06/08/16 08:20; Admin Dose 20 MG; Start 06/05/16 at 09:00 Isoniazid (Isoniazid) 300 mg DAILY PO Last administered on 06/08/16 08:20; Admin Dose 300 MG; Start 06/05/16 at 16:00 Pyridoxine HCl (Vitamin B6) 50 mg DAILY PO Last administered on 06/08/16 08:19 ; Admin Dose 50 MG; Start 06/07/16 at 09:00 Doxycycline Hyclate (Vibramycin) 100 mg BID PO Last administered on 06/08/16t 08 :19; Admin Dose 100 MG; Start 06/07/16 at 21:00; Stop 06/09/16 at 07:00 JONI MARK MD Jun 08, 2016 15:22
[2016-06-08 21:15] VITALS: BP 117/83; RESP 19
[2016-06-09] MEDS: POLYMYXIN/TRIMETHOPRIM 10 ML OPH BOTH EYES SCH ×3 (01:00→08:34)
[2016-06-09] MEDS: HYDROCODONE/APAP (5/325) TAB PO PRN ×2 (02:58→08:45)
[2016-06-09 05:36] LABS: ADD SCAN DIFF NO
[2016-06-09] MEDS: PANTOPRAZOLE (EC) 40 MG TAB PO SCH (05:36)
[2016-06-09] MEDS: HYDROmorphONE 1 MG/ML SYG IV PRN (05:41)
[2016-06-09 05:45] LABS: BASOPHIL # 0.1 10^3/ul (0.0-0.1); BASOPHILS % 0.4 % (0.0-2.0); EOSINOPHILS # 0.3 10^3/ul (0.0-0.5); EOSINOPHILS % 1.9 % (0.0-7.0); HEMATOCRIT 40.8 % (42.0-52.0); HEMOGLOBIN 13.1 g/dl (14.0-18.0); LYMPHOCYTES % 21.9 % (15.0-51.0); MEAN CORPUSCULAR HEMOGLOBIN 28.8 pg (29.0-33.0); MEAN CORPUSCULAR HGB CONC 32.1 g/dl (32.0-37.0); MEAN CORPUSCULAR VOLUME 89.7 fl (82.0-101.0); MEAN PLATELET VOLUME 8.9 fl (7.4-10.4); MONOCYTE # 1.3 10^3/ul (0.3-0.9); MONOCYTES % 9.6 % (0.0-11.0); NEUTROPHIL # 8.8 10^3/ul (1.6-7.5); NEUTROPHILS % 64.9 % (39.0-77.0); PLATELET COUNT 669 10^3/UL (140-415); RED BLOOD COUNT 4.55 10^6/ul (4.70-6.10); RED CELL DISTRIBUTION WIDTH 12.9 % (11.5-14.5); WHITE BLOOD COUNT 13.6 10^3/ul (4.8-10.8)
[2016-06-09 05:57] LABS: POTASSIUM 3.9 mmol/L (3.5-5.1)
[2016-06-09 05:59] LABS: CREATININE 0.79 mg/dl (0.61-1.24)
[2016-06-09 06:00] LABS: CALCIUM 10.3 mg/dl (8.4-10.2)
[2016-06-09 07:13] VITALS: BP 139/91; RESP 20
[2016-06-09 07:50] LABS: ALBUMIN 3.3 g/dl (3.3-4.9)
[2016-06-09 07:52] LABS: BILIRUBIN,INDIRECT 0.1 mg/dl (0-1.1); BILIRUBIN,TOTAL 0.1 mg/dl (0.2-1.3)
[2016-06-09 07:53] LABS: TOTAL PROTEIN 8.1 g/dl (6.1-8.1)
[2016-06-09] MEDS: predniSONE 20 MG TAB PO SCH (08:33)
[2016-06-09] MEDS: ISONIAZID 300 MG TAB PO SCH (08:33)
[2016-06-09] MEDS: SENNA TAB PO SCH (08:33)
[2016-06-09] MEDS: NYSTATIN SUSP 5 ML CUP PO SCH ×3 (08:33→17:00)
[2016-06-09] MEDS: PYRIDOXINE 50 MG TAB PO SCH (08:33)
[2016-06-09] MEDS: CIPROFLOXACIN 0.3% 3.5 GM OPH OINT BOTH EYES SCH (08:34)
--- NOTE | 2016-06-09 13:57 | PDOCDIS ---
Discharge Instructions CONDITION Patient Condition: Stable HOME CARE INSTRUCTIONS: Special Diet: soft ACTIVITY: Activity Restrictions: Slowly Increase Activity Rest between Activity Avoid heavy lifting FOLLOW UP/APPOINTMENTS Appointments Follow-up with primary care physician as outpatient Follow up with supervisor looping as outpatient JONI MARK MD Jun 09, 2016 13:56
[2016-06-09] MEDS ORDERED: DOCU-216 PO (14:01)
[2016-06-09] MEDS ORDERED: HYDR-3498 PO (14:01)
[2016-06-09] MEDS ORDERED: FAMO20TA18 PO (14:01)
[2016-06-09] MEDS ORDERED: NAPR-260 PO (14:01)
[2016-06-09] MEDS ORDERED: SENN-53 PO (14:01)
[2016-06-09] MEDS ORDERED: Pyridoxine PO (14:01)
[2016-06-09] MEDS ORDERED: ONDA4TAB95 PO (14:01)
[2016-06-09] MEDS ORDERED: ISON300T72 PO (14:01)
[2016-06-09] MEDS ORDERED: PRED20 PO (14:01)
[2016-06-09] MEDS ORDERED: NYST1000 PO (14:01)
--- NOTE | 2016-06-09 14:10 | CONS ---
Date/Time of Note Date/Time of Note DATE: 06/09/16 TIME: 14:08 Consult Date/Type/Reason Admit Date/Time May 25, 2016 at 11:13 Initial Consult Date 05/25/16 Type of Consultation: Rheum Subjective Leess pain. No new complaints. Objective Vital Signs Date Time Temp Pulse Resp B/P Pulse Ox O2 Delivery O2 Flow Rate FiO2 06/09/16 07:13 98.5 100 20 139/91 97 Intake and Output 06/08/16 06/08/16 06/09/16 15:00 23:00 07:00 Intake Total 1580 ml Output Total 2350 ml Balance -770 ml Results/Medications Result Diagram: 06/09/16 0513 06/09/16 0513 Results 24 hrs Laboratory Tests Test 06/09/16 05:13 White Blood Count 13.6 H Red Blood Count 4.55 L Hemoglobin 13.1 L Hematocrit 40.8 L Mean Corpuscular Volume 89.7 Mean Corpuscular Hemoglobin 28.8 L Mean Corpuscular Hemoglobin Concent 32.1 Red Cell Distribution Width 12.9 Platelet Count 669 H Mean Platelet Volume 8.9 Neutrophils % 64.9 Lymphocytes % 21.9 Monocytes % 9.6 Eosinophils % 1.9 Basophils % 0.4 Nucleated Red Blood Cells % 0.0 Neutrophils # 8.8 H Lymphocytes # 3.0 H Monocytes # 1.3 H Eosinophils # 0.3 Basophils # 0.1 Nucleated Red Blood Cells # 0.0 Sodium Level 133 L Potassium Level 3.9 Chloride Level 94 L Carbon Dioxide Level 32 H Anion Gap 11 # Blood Urea Nitrogen 14 Creatinine 0.79 Glucose Level 199 Calcium Level 10.3 H Total Bilirubin 0.1 L Direct Bilirubin 0.00 Indirect Bilirubin 0.1 Aspartate Amino Transf (AST/SGOT) 79 H Alanine Aminotransferase (ALT/SGPT) 100 H Alkaline Phosphatase 195 H Total Protein 8.1 Albumin 3.3 Medications Current Medications Ondansetron HCl (Zofran Tab) 4 mg Q6H PRN PO NAUSEA AND/OR VOMITING; Start at 17:30 Acetaminophen (Tylenol Tab) 650 mg Q6H PRN PO PAIN LEVEL 1-3 OR FEVER Last administered on 05/28/16t 00:11; Admin Dose 650 MG; Start 05/25/16 at 17:30 Acetaminophen (Tylenol Supp) 650 mg Q6H PRN [place] PAIN LEVEL 1-3 OR FEVER; Start 05/25/16 at 17:30 Docusate Sodium (Colace) 100 mg Q12H PRN PO CONSTIPATION Last administered on 11:31; Admin Dose 100 MG; Start 05/25/16 at 17:30 Nystatin (Nystatin Susp) 5 ml QID PO Last administered on 06/09/16 08:33; Admin Dose 5 ML; Start 05/27/16 at 13:00 Acetaminophen/ Hydrocodone Bitart ([place] (5/325)) 1 tab Q4H PRN PO MODERATE PAIN LEVEL 4-6 Last administered on 06/09/16 08:45; Admin Dose 1 TAB; Start at 13:30 Morphine Sulfate (morphine) 2 mg Q4H PRN IV PAIN Last administered on 09:37; Admin Dose 2 MG; Start 05/28/16 at 14:00; Status Future Hold Naproxen (Naprosyn) 500 mg BID PO Last administered on 05/30/16 08:16; Admin Dose 500 MG; Start 05/28/16 at 14:20; Status Future Hold Pantoprazole (Protonix Tab) 40 mg DAILY@06 PO Last administered on 06/09/16 05: 36; Admin Dose 40 MG; Start 05/30/16 at 06:00 Senna (Senokot) 2 tab BID PO Last administered on 06/09/16 08:33; Admin Dose 2 TAB; Start 06/02/16 at 21:00 Hydromorphone HCl (Dilaudid) 0.5 mg Q4H PRN IV PAIN Last administered on 05:41; Admin Dose 0.5 MG; Start 06/03/16 at 10:00 Prednisone (Prednisone) 20 mg DAILY PO Last administered on 06/09/16 08:33; Admin Dose 20 MG; Start 06/05/16 at 09:00 Isoniazid (Isoniazid) 300 mg DAILY PO Last administered on 06/09/16 08:33; Admin Dose 300 MG; Start 06/05/16 at 16:00 Pyridoxine HCl (Vitamin B6) 50 mg DAILY PO Last administered on 06/09/16 08:33 ; Admin Dose 50 MG; Start 06/07/16 at 09:00 Assessment/Plan Chief Complaint/Hosp Course Ass. 1. Reactive Arthritis with positive HLA-B27, arthritis, uveitis. 2. Arthritis at knees, ankles, right hand and right shoulder improved, but now with some increased pain. . No evidence of infection there, or Gout. 3. Eye inflammation improved. 4. Mild Alk. Phos and transaminase elevation of unclear significance without recent change. Abd BRITTON and CT scan unremarkable 5. LATENT TUBERCULOSIS with positive Quant. Gold. Rec. 1. Continue INH and Pyridoxine 2. Decrease Prednisone to 10 mg q AM. 3. Continue Naproxen and PPI 4. Will need ophthalmology eval for possible steroid eye drops, or other. 5. Will likely need TNF medication eventually, but needs to be treated with 9 months of INH and Pyridoxine total, although can start TNF medication after a month. . Problems: JO ANN DOMINGUEZ MD Jun 09, 2016 14:10
[2016-06-09] MEDS ORDERED: PANT40TA3 PO (14:30)
--- NOTE | 2016-06-09 15:36 | DS ---
DATE OF ADMISSION: 05/25/2016 DATE OF DISCHARGE: 06/09/2016 CONSULTANTS: 1. Infectious disease. 2. Gastroenterology. 3. Client Relationship Executive. PROCEDURE: A 2D echocardiogram which demonstrated normal ejection fraction, normal left ventricle s ystolic function, normal left ventricle cavity size. Normal appearance and function of mitral valve with trace physiologic regurg, trace aortic valve regurg. FINAL DIAGNOSIS: 1. 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 Patient was discharged on steroid INH via breathing sticks. 2. Iritis as above. 2. Questionable gastrointestinal bleed. Gastroenterology was consulted. Stool was positive for gu aiac. The patient refused colonoscopy. 3. Leukocytosis, reactive secondary to above and secondary to steroids. The patient is afebrile. MEDICATIONS: 1. [place]. 2. Colace. 3. Pepcid. 3. INH. 4. Naproxen. 5. Nystatin. 6. Zofran. 7. Prednisone. 8. Senna. 9. Vitamin B6. ALLERGIES: NO KNOWN DRUG ALLERGIES. HOSPITAL COURSE: This is a 45-year-old gentleman with no significant past medical history who prese nted to [facility] secondary to having 10 days of right foot and heel ache with er ythema and jaundice. The pain was primarily in his right heel, but he has some massage in the left heel and subsequently developed pain and swelling in the left ankle as well as pain and some swellin g in the knee and pain in the right thumb and right shoulder. Patient was admitted to the hospital with some knee swelling, which has increased. In addition around that same time, the patient develo ped bilateral eye inflammation, erythema and pain. The patient was found to have staph species in t he blood. Infectious disease doctor was consulted and was found to become contaminant. Bladder cul ture has been no growth x3 days. Patient's urine culture was negative. Laboratories studies includ ed a very high sedimentation rate and C-reactive protein and some mild leukocytosis. Patient also n oted to have positive HLA-B27 with negative rheumatoid factor, negative JOSEFINA. The patient was starte d on prednisone and INH, Vitamin B6 and broad spectrum IV antibiotics were continued on aggressive m edical management. His WBC started to improve to 9.8 and has been ranging between 11 to 13. This i s likely secondary to the patient being started on prednisone. His vitals have been stable. Temper ature 98.5, pulse 100, respiration 20, blood pressure 139/91, oxygen 97%. Patient was found to have mildly elevated LFTs. Patient was seen and evaluated by accountant certified public and his Viagra was foun d to be positive. He was set up for upper endoscopy and colonoscopy, although which he refused. He has been continued on PPI in that regard and has been improving. He has been seen and evaluated by physical therapy and occupational therapy. He states he has been able to ambulate with a walker. He has been cleared as per ID and production checker. After discharge, he has been set up to be followe d up with his primary care physician, Dr. Kaden Mclean and has been set up for outpatient rheumatolog y. LABORATORY: Today labs are sodium 133, potassium 3.9, chloride 94, bicarbonate 32, BUN 14, creatini ne 0.79, glucose 109, calcium 10.3. WBC 13.6, hemoglobin 13.1, hematocrit 40.8, platelets 669, sero logy positive for gold, interferon. RPR negative, hepatitis A nonreactive, hepatitis B S antigen n egative, hepatitis B core antibody negative, C antibody negative, HIV 1 and 2 antibody negative. HL A-B27 test positive. JOSEFINA screen negative rheumatoid factor screen negative. At this time, the pat ient is medically stable to be discharged home with a close followup with production checker and primary care physician. Also, he needs to be seen and evaluated by the wire winding machine operator as outpatient. Dictated By: JONI DE ANDA/RUY Conf#: [id number] DID#: [id number]
== END 2016-06-09 18:05 | disposition home or self-care (01) | DRG 603 ==
LOC: E/R 09:51 → MS2 11:13
PROVIDERS: ADMIT Family Medicine; ATTEND Family Medicine
PROC: 0S9D3ZZ Drainage of Left Knee Joint, Percutaneous Approach (ICD-10-PCS; principal; 2016-05-29)
DX: L03.116 Cellulitis of left lower limb (principal); B37.0 Candidal stomatitis; M02.39 Reiter's disease, multiple sites; H20.9 Unspecified iridocyclitis; K62.5 Hemorrhage of anus and rectum; M25.461 Effusion, right knee; M25.462 Effusion, left knee; M79.642 Pain in left hand; M25.511 Pain in right shoulder; B95.8 Unspecified staphylococcus as the cause of diseases classified elsewhere; H10.33 Unspecified acute conjunctivitis, bilateral; R74.8 Abnormal levels of other serum enzymes; R76.11 Nonspecific reaction to tuberculin skin test without active tuberculosis; S90.02XA Contusion of left ankle, initial encounter; X58.XXXA Exposure to other specified factors, initial encounter
CPT/HCPCS: 36415; 71010; 71250; 73721; 74176; 76700; 80048; 80053; 80076; 80202; 81001; 81003; 82270; 82550; 82553; 82945; 83605; 83690; 83735; 84157; 84484; 84560; 85025; 85610; 85651; 85730; 86038; 86140; 86430; 86480; 86592; 86703; 86704; 86709; 86803; 86812; 87040; 87070; 87075; 87081; 87086; 87102; 87116; 87340; 89051; 93005; 93306; 96374; 96375; 97110; 97116; 97162; 97530; J0696; J1170; J2270; J3370; J7030; J7510; J7512

== ENCOUNTER 2016-06-26 19:50 | Emergency (ER) | payer MEDICAID ==
[~2016-06-26] VITALS: Ht 167.6 cm; Wt 56.0 kg
[~2016-06-26 19:50] MED LIST changes: +DOCU-216 PO; +FAMO20TA18 PO; +HYDR-3498 PO; +ISON300T72 PO; +NAPR-260 PO; +NYST1000 PO; -OFLO5DRO46 BOTH EYES; +ONDA4TAB95 PO; +PANT40TA3 PO; +PRED20TA PO; +Pyridoxine PO; +SENN-53 PO
[2016-06-26 19:56] VITALS: Ht 167.6 cm; Wt 56.0 kg
[2016-06-26] MEDS ORDERED: TETRACAINE 0.5% 4 ML OPH BOTH EYES ONE (21:00)
[2016-06-26] MEDS ORDERED: FLUORESCEIN STRIP BOTH EYES ONE (21:00)
--- NOTE | 2016-06-26 21:11 | ERD ---
ER Documentation Chief Complaint Date/Time DATE: 06/26/16 TIME: 21:07 Chief Complaint bilateral eye redness/ eyelid swelling/pain x 4 days HPI 45-year-old male presents to emergency department for complaints of bilateral eye redness, patient is complaining of bilateral eye redness, pain, burning pain , 4/10 scale, with purulent discharge from both eyes. Patient was seen by primary care doctor, as prescribed with Vigamox which he started taking today, patient denies any vision changes. Patient denies any fever or chills. Patient denies any trauma that I Michelle patient denies any foreign body sensation in the eye. ROS All systems reviewed and are negative except as per history of present illness. Medications Home Meds Active Scripts Hydrocodone/Acetaminophen ([place] 5-325 Tablet) 1 Each Tablet, 1 TAB PO Q6H Y for SEVERE PAIN LEVEL 7-10, #20 TAB Prov:ANDI SHANKAR NP 06/26/16 Pantoprazole* (Protonix*) 40 Mg Tablet.dr, 40 MG PO DAILY, #30 TAB Prov:JONI MARK MD 06/09/16 Famotidine* (Famotidine*) 20 Mg Tablet, 20 MG PO DAILY, #30 TAB Prov:JONI MARK MD 06/09/16 [Pyridoxine] 50 MG TAB No Conflict Check, 50 MG PO DAILY, #30 8 Refills Prov:JONI MARK MD 06/09/16 Prednisone (Prednisone) 20 Mg Tab, 10 MG PO DAILY for 30 Days, TAB Prov:JONI MARK MD 06/09/16 Ondansetron Hcl* (Ondansetron Hcl*) 4 Mg Tablet, 4 MG PO Q6H Y for NAUSEA AND/ OR VOMITING, #30 TAB Prov:JONI MARK MD 06/09/16 Sennosides* (Senna Lax*) 8.6 Mg Tablet, 2 TAB PO BID Y for CONSTIPATION, #30 TAB Prov:JONI MARK MD 06/09/16 Docusate Sodium (Dok) 100 Mg Capsule, 100 MG PO Q12H Y for CONSTIPATION, #30 CAP Prov:JONI MARK MD 06/09/16 Naproxen* (Naprosyn*) 500 Mg Tablet, 500 MG PO BID, #60 TAB Prov:JONI MARK MD 06/09/16 Hydrocodone Bit-Acetaminophen (Hydrocodone Bit-APAP) 5-325MG Tablet, 1 TAB PO Q4H Y for MODERATE PAIN LEVEL 4-6, #30 TAB Prov:JONI MARK MD 06/09/16 Nystatin (Nystatin) 100,000 Unit/1 Ml Oral.susp, 5 ML PO QID for 14 Days Prov:JONI MARK MD 06/09/16 Isoniazid* (Isoniazid*) 300 Mg Tablet, 300 MG PO DAILY, #30 TAB 8 Refills Prov:JONI MARK MD 06/09/16 Allergies Allergies: Coded Allergies: No Known Allergy (Unverified , 06/26/16) PMhx/Soc Medical and Surgical Hx: pt denies Surgical Hx History of Surgery: No Anesthesia Reaction: No Hx Neurological Disorder: No Hx Respiratory Disorders: No Hx Cardiac Disorders: Yes (HTN) Hx Psychiatric Problems: No Hx Miscellaneous Medical Probl: Yes (ARTHRITIS) Hx Alcohol Use: Yes (OCCASIONALLY) Hx Substance Use: No Hx Tobacco Use: No Smoking Status: Never smoker FmHx Family History: No coronary disease, No diabetes, No other Physical Exam Vitals Vital Signs Date Time Temp Pulse Resp B/P Pulse Ox O2 Delivery O2 Flow Rate FiO2 06/26/16 19:56 97.6 103 20 157/97 96 Physical Exam GENERAL: The patient is well developed and appropriate for usual state of health, in no apparent distress. HEENT: Atraumatic. Eyes are PERRL EOM intact, bilateral eye conjunctival is noted to be erythematous with purulent discharge. Ears: Normal tympanic membrane , no erythema or bulging. No ear canal swelling. No ear discharge. Nose: normal nasal turbinates, no erythema or swelling. Normal nasal discharge. Throat: oropharynx clear. No tonsillar swelling or tonsillar exudates. No lymphadenopathy. CHEST: Clear to auscultation bilaterally. There are no rales, wheezes or rhonchi. HEART: Regular rate and rhythm. No murmurs, clicks, rubs or gallops. No S3 or S4. ABDOMEN: Soft, nontender and nondistended. Good bowel sounds. No rebound or guarding. No gross peritonitis. No gross organomegaly or masses. No Osei sign or McBurney point tenderness. BACK: No midline or flank tenderness. EXTREMITIES: Equal pulses bilaterally. There is no peripheral clubbing, cyanosis or edema. No focal swelling or erythema. Full range of motion. Grossly neurovascularly intact. NEURO: Alert and oriented. Cranial nerves 2-12 intact. Motor strength in all 4 extremities with 5/5 strength. Sensation grossly intact. Normal speech and gait. SKIN: There is no apparent rash or petechia. The skin is warm and dry. HEMATOLOGIC AND LYMPHATIC: There is no evidence of excessive bruising or lymphedema. No gross cervical, axillary, or inguinal lymphadenopathy. Results 24 hrs Current Medications Medications (Trade) Dose Ordered Sig/Boaz Route PRN Reason Start Time Stop Time Status Last Admin Dose Admin Tetracaine HCl (Tetracaine 0.5% Steri-Unit Jyoti) 1 drop ONCE ONCE BOTH EYES 06/26/16 21:00 4 21:01 DC Fluorescein Sodium (Twmaa-C-Gecvc) 1 strip ONCE ONCE BOTH EYES 06/26/16 21:00 06/26/16 21:01 DC Procedure Note: After obtaining informed consent, both eyes were stained fluorescein dye, both eyes were numbed using tetracaine ophthalmic solution. After staining the eye, A Wood's lamp was used to evaluate the eye. There is no foreign body noted in the eye. Noted corneal abrasions in both eyes, in the center on the right cornea and center of the left cornea. Patient tolerated procedure well. Eye Pressures were checked using TonoPen, 16 mmHg right eye, 17 mmHg left eye. Procedures/MDM Medical decision making: Patient's pain and redness and tearing most likely is from the corner patient that he has, currently the patient is already taking Vigamox, just started the treatment today, was advised to continue taking it. Rx for [place] for severe pain. No symptoms of acute closed angle glaucoma, symptoms of eye emergencies, eye pressures were checked and was normal, no symptoms more acute angle glaucoma, retinal detachment. Was advised to see eye doctor in 2-3 days for reevaluation of symptoms, return to emergency department if not better in 2 days. Departure Diagnosis: Primary Impression: Corneal abrasion of both eyes Encounter type: initial encounter Qualified Code: S05.01XA - Corneal abrasion of both eyes, initial encounter Condition: Stable Patient Instructions: Corneal Abrasion Additional Instructions: continue Vigamox,see eye doctor 2- 3 days ANDI SHANKAR NP Jun 26, 2016 21:11
[2016-06-26] MEDS ORDERED: HYDR-906 PO (21:23)
== END 2016-06-26 22:31 | disposition home or self-care (01) ==
LOC: FTE 19:50
DX: S05.01XA Injury of conjunctiva and corneal abrasion without foreign body, right eye, initial encounter (principal); S05.02XA Injury of conjunctiva and corneal abrasion without foreign body, left eye, initial encounter; I10 Essential (primary) hypertension; X58.XXXA Exposure to other specified factors, initial encounter; Y92.9 Unspecified place or not applicable
CPT/HCPCS: Z7502; Z7610; 99283

== ENCOUNTER 2016-07-03 11:43 | Outpatient (CLI) | payer MEDICAID ==
[~2016-07-03] VITALS: Ht 167.6 cm; Wt 55.5 kg
[~2016-07-03 11:43] MED LIST changes: +HYDR-906 PO
[2016-07-03 11:58] VITALS: BP 144/86; PULSE 95; RESP 18; Ht 167.6 cm; Wt 55.5 kg
--- NOTE | 2016-07-03 12:28 | PN ---
Date/Time of Note Date/Time of Note DATE: 07/03/16 TIME: 12:23 Outpatient Progress Note Chief Complaint Cellulitis/PUD/positive PPD/rheumatoid arthritis HPI Cellulitis/patient has cellulitis of the ankle, and patient was treated with IV antibiotic, patient doing slightly better, still has a pain, no fever chill, PUD/no nausea or vomiting, abdominal pain, no heartburn, Positive PPD/patient was started on INH, no side effect of medication, Rheumatoid arthritis/patient has joint pain, weakness, difficulty walking, Fatigue/patient feel generalized weakness and tiredness, Review of Systems Const: No Fever, no chills, no Wt. loss, moderate mild fatigue, normal appetite , no diaphoresis. Eyes: No pain, no discharge, no redness, no visual change, no foreign body. ENT: No pain, no bleeding, no congestion, no sore throat, no dysphagia, no discharge or rhinitis. Lymph: No adenopathy, no tender nodes, no lymphedema. Resp: No SOB, no cough, no sputum, no wheezing, no chest pain. CV: No chest pain, no palpitaions, no JEAN, no PND, no edema. GI: Normal appetite, no pain, no nausea, no vomiting, no diarrhea, no blood, no constipation. : No frequency, no urgency, no dysuria, no hematuria, no flank pain, no discharge, no bleeding. Musc: Mild back pain, no neck pain, no knee pain, no restricted ROM. Bilateral ankle pain, and foot pain, and shoulder pain, Skin: No rash, no skin lesions, no erythema, no laceration, no bruising, no pruritus. Neuro: No WHITFIELD, no dizziness, no syncope, no seizure, no focal-weakness. Endo: No polyuria, no polydypsia, no dry-skin, no temp-intolerance. Psych: No hallucinations, no depression, no anxiety, no suicidal ideation. Ext: No edema, no pain, no ulcer, no weakness. Physical Exam Vital Signs Date Time Temp Pulse Resp B/P Pulse Ox O2 Delivery O2 Flow Rate FiO2 07/03/16 11:58 97.8 95 18 144/86 98 Room Air General Appearance: A [45 year-old male who appears well-developed, well- nourished, in no acute distress slight fatigue, HEENT: Head normocephalic, atraumatic. Pupils equal, round, reactive to light and accommodate. Sclerae are no jaundice. Nasal turbinates pink without erythema or nasal discharge. Mucous membranes pink and moist without lesions. Oropharynx clear without any exudate or discharge. NECK: Supple. Trachea midline, No thyromegaly, No cervical lymphadenopathy, No mass, No carotid bruits, No JVD, Carotid pulses 2+ bilaterally. PULMONARY: Clear to auscultaion bilaterally, No retractions, Chest expansion symmetric bilaterally, no rales, no ronchi, no dulness on percussion. CARDIAC: Normal SI and S2, Regular rate and rythm, no murmur, gallop, or rub. GASTROINTESTINAL: Abdomen is soft, non-tender, Non Rigid, No distention, Positive bowel sounds x4 quadrants, Liver normal. SKIN: Warm, dry, no rash, no bruise, no echmosis. EXTREMITIES: Bilateral lower extremities no edema, no phlabitus, pulse palpable , no contracture. Complains of ankle pain, and difficulty walking, MUSCULOSKELETAL: Spine Normal, Non-tender, Normal range of motion, No swelling, no deformity, no clubbing, or cyanosis, the patient has no edema to bilateral lower extremities, dorsalis pedis pulses palpable bilaterally. NEUROLOGIC: The patient is awake, alert, oriented, responding to yes/no questions appropriately, moving all extremities, cranial nerve intact, normal strenght, normal power, normal coordination, normal gait. Allergies Coded Allergies: No Known Allergy (Unverified , 06/26/16) PMH Cellulitis/chronic pain syndrome/PUD/positive PPD Social Hx No smoking no drinking, Family Hx Noncontributory Assessment/Plan Impression Cellulitis improved/PUD/positive PPD/rheumatoid arthritis Plan Patient education done about a bowel disease, patient has all the medication, except INH, INH 300 mg daily #30, Patient encouraged to follow with the primary care physician, CBC CMP TSH vitamin D level, and patient to follow with the primary care physician and imaging administrator, Medications Home Meds Active Scripts Pantoprazole* (Protonix*) 40 Mg Tablet.dr, 40 MG PO DAILY, #30 TAB Prov:JONI MARK MD 06/09/16 Famotidine* (Famotidine*) 20 Mg Tablet, 20 MG PO DAILY, #30 TAB Prov:JONI MARK MD 06/09/16 [Pyridoxine] 50 MG TAB No Conflict Check, 50 MG PO DAILY, #30 8 Refills Prov:JONI MARK MD 06/09/16 Prednisone (Prednisone) 20 Mg Tab, 10 MG PO DAILY for 30 Days, TAB Prov:JONI MARK MD 06/09/16 Sennosides* (Senna Lax*) 8.6 Mg Tablet, 2 TAB PO BID Y for CONSTIPATION, #30 TAB Prov:JONI MARK MD 06/09/16 Docusate Sodium (Dok) 100 Mg Capsule, 100 MG PO Q12H Y for CONSTIPATION, #30 CAP Prov:JONI MARK MD 06/09/16 Naproxen* (Naprosyn*) 500 Mg Tablet, 500 MG PO BID, #60 TAB Prov:JONI MARK MD 06/09/16 Isoniazid* (Isoniazid*) 300 Mg Tablet, 300 MG PO DAILY, #30 TAB 8 Refills Prov:JONI MARK MD 06/09/16 Discontinued Scripts Hydrocodone/Acetaminophen ([place] 5-325 Tablet) 1 Each Tablet, 1 TAB PO Q6H Y for SEVERE PAIN LEVEL 7-10, #20 TAB Prov:ANDI SHANKAR NP 06/26/16 Ondansetron Hcl* (Ondansetron Hcl*) 4 Mg Tablet, 4 MG PO Q6H Y for NAUSEA AND/ OR VOMITING, #30 TAB Prov:JONI MARK MD 06/09/16 Hydrocodone Bit-Acetaminophen (Hydrocodone Bit-APAP) 5-325MG Tablet, 1 TAB PO Q4H Y for MODERATE PAIN LEVEL 4-6, #30 TAB Prov:JONI MARK MD 06/09/16 Nystatin (Nystatin) 100,000 Unit/1 Ml Oral.susp, 5 ML PO QID for 14 Days Prov:JONI MARK MD 06/09/16 RONAK JUNG MD Jul 03, 2016 12:28
[2016-07-03 14:43] LABS: ADD SCAN DIFF NO
[2016-07-03 14:45] LABS: BASOPHILS % 0.2 % (0.0-2.0); EOSINOPHILS # 0.1 10^3/ul (0.0-0.5); EOSINOPHILS % 0.8 % (0.0-7.0); HEMATOCRIT 41.4 % (42.0-52.0); HEMOGLOBIN 13.3 g/dl (14.0-18.0); LYMPHOCYTES # 1.6 10^3/ul (0.8-2.9); MEAN CORPUSCULAR HEMOGLOBIN 28.2 pg (29.0-33.0); MEAN CORPUSCULAR HGB CONC 32.1 g/dl (32.0-37.0); MEAN CORPUSCULAR VOLUME 87.7 fl (82.0-101.0); MEAN PLATELET VOLUME 9.6 fl (7.4-10.4); MONOCYTE # 0.3 10^3/ul (0.3-0.9); MONOCYTES % 3.3 % (0.0-11.0); NEUTROPHIL # 8.4 10^3/ul (1.6-7.5); NEUTROPHILS % 80.2 % (39.0-77.0); PLATELET COUNT 390 10^3/UL (140-415); RED BLOOD COUNT 4.72 10^6/ul (4.70-6.10); RED CELL DISTRIBUTION WIDTH 12.9 % (11.5-14.5); WHITE BLOOD COUNT 10.4 10^3/ul (4.8-10.8)
[2016-07-03 15:07] LABS: ALBUMIN 3.7 g/dl (3.3-4.9); ALBUMIN/GLOBULIN RATIO 0.75; BILIRUBIN,INDIRECT 0.2 mg/dl (0-1.1); BILIRUBIN,TOTAL 0.2 mg/dl (0.2-1.3); CALCIUM 10.4 mg/dl (8.4-10.2); CREATININE 0.69 mg/dl (0.61-1.24); POTASSIUM 4.3 mmol/L (3.5-5.1); TOTAL PROTEIN 8.6 g/dl (6.1-8.1)
[2016-07-03 15:40] LABS: THYROID STIMULATING HORMONE 0.804 MIU/L (0.465-4.680)
== END 2016-07-03 16:11 | disposition home or self-care (01) ==
LOC: DCC 11:43
PROVIDERS: ATTEND Internal Medicine
DX: L03.119 Cellulitis of unspecified part of limb (principal); M06.9 Rheumatoid arthritis, unspecified; K27.9 Peptic ulcer, site unspecified, unspecified as acute or chronic, without hemorrhage or perforation; R76.11 Nonspecific reaction to tuberculin skin test without active tuberculosis
CPT/HCPCS: 80053; 82306; 82607; 84443; 85025; Z7500; G0463

== ENCOUNTER 2017-04-29 09:39 | Emergency (ER) | END 2017-04-29 11:51 | disposition home or self-care (01) ==